=== PATIENT | male | born 1995 | race Caucasian/White ===

== ENCOUNTER 2018-12-25 23:08 | Emergency (ER) | payer BC, OTHER ==
--- OUTSIDE RECORDS SUMMARY | 2018-12-25 23:14 | XMS REPORT | Continuity of Care Document ---
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 Protect from light. Do not dilute or mix w/other agents propofol 10 See Active 09/21/ MH mg/mL Instructions, 2016 [place] intravenous see emulsion instructions, # 1 bag, 0 Refill(s) POLYETHYLENE PO, Q12H, 0 Active 09/21/ MH GLYCOL 3350 Refill(s) 2016 [place] phenol topical 1 spray, TOP, Active MH 1.4% spray Q2H, PRN Sore 2016 [place] Throat, 0 Refill(s) Amylases 79767 3 cap, NG, TID, Active MH UNT / 0 Refill(s) 2016 [place] Endopeptidases 54657 UNT / Lipase 17168 UNT Enteric Coated Capsule nafcillin 2 g 2 gm, IM, Q6H, X Active 09/21/ MH injection 30 day, # 1 box, 2016 [place] 0 Refill(s) pantoprazole 40 40 mg, IV, Q12H, Active 30/ MH mg intravenous 0 Refill(s) 2016 [place] injection midazolam 1 2 mg=2 mL, IVP, Active 09/21/ MH mg/mL-NaCl 0.9% Q2H, PRN 2016 [place] intravenous Agitation, 0 solution Refill(s) Magnesium 2 gm=50 mL, Active Sulfate IVPB, PRN, PRN 2016 [place] Abnormal Lab Result, FOR ICU USE ONLY, 0 Refill(s) Furosemide 20 mg=2 mL, IVP, Active Daily, 0 2015 [place] Refill(s) hydromorphone 0.5 mg=0.5 mL, Active MH 100 mg/100 IVP, Q3H, PRN 2015 [place] mL-NaCl 0.9% Pain Score 7-10, intravenous 0 Refill(s) solution heparin 5,000 unit=1 mL, Active SUB-Q, Q12H, 0 2015 [place] Refill(s) fentaNYL 5 See Active mcg/mL-NaCl 0.9% Instructions, 2016 [place] injectable titrate for solution pain/sedation, # 1 bag, 0 Refill(s) colistimethate 150 mg, NEB, Active [id number], 0 2015 [place] Refill(s) Albuterol 0.833 3 mL, Active MH MG/ML / INHALATION, 2015 [place] Ipratropium RQ6H, 0 [place] 0.167 Refill(s) MG/ML Inhalant Solution [DuoNeb] Acetazolamide 250 mg, IVP, Active Daily, 0 2015 [place] Refill(s) Acetaminophen 650 mg=20.3 mL, Active NG, Q4H, PRN 2016 [place] Pain 1-3/Temp > 100.4 F, 0 Refill(s) MICAFUNGIN 100 mg, IV, Active SODIUM 20 MG/ML Q24H, X 30 day, 2016 [place] Injectable # 1 box, 0 Solution Refill(s) [Mycamine] QUEtiapine 25 mg 50 mg=2 tab, PO, Active oral tablet Q12H, 0 2015 [place] Refill(s) meropenem 500 mg 500 mg, IV, Q6H, Active intravenous X 10 day, # 1 2016 [place] injection box, 0 Refill(s) colistimethate + 90 mg, Route: No Longer sodium chloride IVPB, ABXQ8H, Active 2015 [place] 0.9% INJ 100 mL Dosing Weight 54.318, kg, Start date: 09/21/16 1:00:00 CARDIOTHORACIC SURGEON, Duration: 30 day, Stop date: 10/20/16 17:00:00 CSTNotes: (Same As: Coly-Mycin) colistimethate + 90 mg, Route: No Longer sodium chloride IVPB, ABXQ8H, Active 2015 [place] 0.9% INJ 100 mL Dosing Weight 54.318, kg, Start date: 09/20/16 21:00:00 CARDIOTHORACIC SURGEON, Duration: 30 day, Stop date: 10/20/16 13:00:00 CSTNotes: (Same As: Coly-Mycin) colistimethate 150 mg, Route: No Longer NEB, Drug form: Active 2015 [place] SOLN, [id number], Dosing Weight 54.318, kg, Start date: 09/20/16 18:30:00 CARDIOTHORACIC SURGEON, Duration: 30 day, Stop date: 10/20/16 6:30:00 CSTNotes: SEE RT DOCUMENTATION. meropenem 500 mg, Route: No Longer IV, ABXQ6H, Active 2015 [place] Dosing Weight 54.318, kg, Start date: 09/20/16 16:00:00 CARDIOTHORACIC SURGEON, Duration: 30 day, Stop date: 10/20/16 10:00:00 CSTNotes: Same as Merrem MEDICATION WASTE Product Size: 500 mg Product Wasted: ___ mg dexamethasone Route: IV, Drug Inactive (ANES) form: INJ, ONCE, 2015 [place] Stop date: 09/20/16 15:17:00 CARDIOTHORACIC SURGEON ondansetron Route: IV, Drug Inactive (ANES) form: INJ, ONCE, 2015 [place] Stop date: 09/20/16 15:13:00 CARDIOTHORACIC SURGEON rocuronium Route: IV, Drug Inactive (ANES) form: INJ, ONCE, 2015 [place] Stop date: 09/20/16 15:03:00 CARDIOTHORACIC SURGEON sodium chloride Route: IV, Total Inactive 0.9% 1000 ml INJ Volume: 1,000, 2015 [place] (ANES) Start date: 09/20/16 14:24:00 CARDIOTHORACIC SURGEON, Stop date: 09/20/16 15:24:00 CARDIOTHORACIC SURGEON Pulmozyme 2.5 mg, 2.5 mL, No Longer Route: NEB, Drug Active 2015 [place] form: SOLN, RQ12H, Dosing Weight 54.318, kg, Start date: 09/20/16 13:13:00 CARDIOTHORACIC SURGEON, Duration: 30 day, Stop date: 10/20/16 4:00:00 CSTNotes: (Same as: Pulmozyme) D5NS 1,000 mL 1,000 mL, Rate: No Longer 50 ml/hr, Infuse Active 2015 [place] over: 20 hr, Route: IV, Dosing Weight 54.318 kg, Total Volume: 1,000, Start date: 09/20/16 11:57:00 CARDIOTHORACIC SURGEON, Duration: 30 day, Stop date: 10/20/16 11:56:00 CARDIOTHORACIC SURGEON Acetazolamide 250 mg, Route: No Longer IVP, Drug form: Active 2015 [place] PDR/INJ, Daily, Dosing Weight 54.318, kg, Start date: 09/19/16 9:00:00 CARDIOTHORACIC SURGEON, Duration: 30 day, Stop date: 10/18/16 9:00:00 CSTNotes: (Same as: Diamox) Mycamine 100 mg, Route: No Longer IV, [id number], Active 2015 [place] Dosing Weight 54.318, kg, Start date: 09/15/16 22:00:00 CARDIOTHORACIC SURGEON, Duration: 30 day, Stop date: 10/14/16 22:00:00 CSTNotes: Same as Mycamine Protect from light MEDICATION WASTE Product Size: 100 mg Product Wasted: ___ mg colistimethate + 135 mg, Route: No Longer sodium chloride IVPB, [id number], Active 2015 [place] 0.9% INJ 100 mL Dosing Weight 54.318, kg, Start date: 09/15/16 12:00:00 CARDIOTHORACIC SURGEON, Stop date: 10/14/16 12:00:00 CSTNotes: (Same As: Coly-Mycin) ceftolozane-tazo 1.5 gm, IVPB, No Longer bactam + sodium 100 ml/hr, Active 2015 [place] chloride 0.9% ABXQ8H, Start INJ 100 mL date: 09/14/16 16:00:00 CARDIOTHORACIC SURGEON, Duration: 30, 100 mlNotes: (Same as: Zerbaxa) Non-formulary albumin human 25 gm, 100 mL, Inactive 25% intravenous Route: IVPB, 2015 [place] solution Drug form: INJ, ONCE, Dosing Weight 54.318, kg, Start date: 09/14/16 14:17:00 CARDIOTHORACIC SURGEON, Stop date: 09/14/16 14:17:00 CSTNotes: Lot #: Mfg: ____ (Same as: Plasbumin-25) "blood product derivative" WASTE: F/P - Red; E -Red MEDICATION WASTE Product Size: 25 gm Product Wasted: ___ gm Zerbaxa 1.5 gm, Route: Inactive IVPB, ABXQ8H, 2015 [place] Dosing Weight 54.318, kg, CrCl > 50 ml/min, Start date: 09/14/16 12:00:00 CARDIOTHORACIC SURGEON, Duration: 30 day, Stop date: 10/14/16 4:00:00 CARDIOTHORACIC SURGEON colistimethate + 250 mg, Route: Inactive sodium chloride IV, ONCE, Dosing 2015 [place] 0.9% INJ 100 mL Weight 54.318, kg, Start date: 09/14/16 11:27:00 CARDIOTHORACIC SURGEON, Stop date: 09/14/16 11:27:00 CSTNotes: (Same As: Coly-Mycin) Furosemide 20 mg, 2 mL, No Longer Route: IVP, Drug Active 2015 [place] form: INJ, Daily, Dosing Weight 54.318, kg, Start date: 09/14/16 9:00:00 CARDIOTHORACIC SURGEON, Duration: 30 day, Stop date: 10/13/16 9:00:00 CSTNotes: (Same as: Lasix) Sodium Chloride 4 mL, Route: No Longer 3% inhalation NEB, Drug Form: Active 2015 [place] solution SOLN, Dosing Weight 54.318, kg, RQ6H, Start date: 09/13/16 20:00:00 CARDIOTHORACIC SURGEON, Duration: 30 day, Stop date: 10/13/16 14:00:00 CSTNotes: SEE RT DOCUMENTATION (Same as: Hypertonic Saline 3%, Inhalation) Albuterol 0.833 3 mL, Route: No Longer MG/ML / INHALATION, Drug Active 2015 [place] Ipratropium Form: SOLN, Wayne 0.167 Dosing Weight MG/ML Inhalant 54.318, kg, Solution RQ6H, Start [DuoNeb] date: 09/13/16 20:00:00 CARDIOTHORACIC SURGEON, Duration: 30 day, Stop date: 10/13/16 14:00:00 CSTNotes: (Same as: Duoneb) Nafcillin 2 gm, Route: No Longer IVPB, Drug form: Active 2015 [place] PDR/INJ, ABXQ6H, Dosing Weight 54.318, kg, Start date: 09/13/16 20:00:00 CARDIOTHORACIC SURGEON, Duration: 30 day, Stop date: 10/13/16 14:00:00 CARDIOTHORACIC SURGEON fat emulsion, 250 mL, 31.25 No Longer intravenous ml/hr, Route: Active 2015 [place] IV, Drug Form: INJ, Daily, Start date: 09/12/16 22:00:00 CARDIOTHORACIC SURGEON, Stop date: 10/11/16 22:00:00 CSTNotes: (Same as: Intralipid, Liposyn) Hydrocortisone 25 mg, 0.5 mL, No Longer Route: IV, Drug Active 2015 [place] form: PDR/INJ, Q12H, Dosing Weight 54.318, kg, Start date: 09/12/16 21:00:00 CARDIOTHORACIC SURGEON, Stop date: 10/12/16 9:00:00 CSTNotes: (Same as: Solu-CORTEF) Propofol 10 1,000 mg, 100 No Longer MG/ML Injectable mL, Rate: Active 2015 [place] Suspension Titrate, Start Dose: 5 microgram/kg/min , Titration: 5 microgram/kg/min every 15 min, Goal(s): RASS -1 to -2, Max Dose: 50 microgram/kg/min , Route: IV, Dosing Weight 54.318 kg, Total Volume: 100, Start date: 09/12/16 11:58:00 CS...Notes: If Diprivan - change bottle & tubing every 12 hr Per state nursing law propofol can only be given by a nurse if patient is intubated or being intubated (unless the nurse is a FED[employer] COMMISSIONER). Same as: Diprivan pantoprazole 40 mg, Route: No Longer IV, Drug form: Active 2015 [place] INJ, Q12H, Dosing Weight 54.318, kg, Start date: 09/12/16 10:34:00 CARDIOTHORACIC SURGEON, Duration: 30 day, Stop date: 10/12/16 9:00:00 CSTNotes: (Same as: Protonix) Midazolam 2 mg, 2 mL, No Longer Route: IVP, Drug Active 2015 [place] form: INJ, Q2H, Dosing Weight 54.318, kg, PRN Agitation, Start date: 09/12/16 10:30:00 CARDIOTHORACIC SURGEON, Duration: 30 day, Stop date: 10/12/16 10:29:00 CSTNotes: (Same as: Versed) MEDICATION WASTE Product Size: 2 mg Product Wasted: ___ mg Miralax 17 gm, 1 pkt, No Longer Route: PO, Drug Active 2015 [place] form: PWDR, Q12H, Dosing Weight 54.318, kg, Start date: 09/12/16 10:13:00 CARDIOTHORACIC SURGEON, Duration: 30 day, Stop date: 10/12/16 9:00:00 CSTNotes: Dissolve in 8 oz of water or juice. (Same as: Miralax) Miralax 17 gm, Route: Inactive PO, Daily, 2015 [place] Dosing Weight 54.318, kg, Start date: 09/12/16 10:11:00 CARDIOTHORACIC SURGEON, Duration: 30 day, Stop date: 10/12/16 9:00:00 CARDIOTHORACIC SURGEON fat emulsion, 250 mL, 31.25 No Longer intravenous ml/hr, Route: Active 2015 [place] IV, Drug Form: INJ, Daily, Start date: 09/11/16 22:00:00 CARDIOTHORACIC SURGEON, Stop date: 09/12/16 6:00:00 CSTNotes: (Same as: Intralipid, Liposyn) Infuse through a 1.2 micron filter TPN, adult 1,058 mL, Rate: No Longer solution 1,058 42 ml/hr, Infuse Active 2015 [place] mL over: 25.2 hr, Route: IV, Dosing Weight 54.318 kg, Total Volume: 1,058, Start date: 09/11/16 22:00:00 CARDIOTHORACIC SURGEON, Stop date: 09/13/16 21:59:00 CARDIOTHORACIC SURGEON Seroquel 50 mg, 2 tab, No Longer Route: PO, Drug Active 2015 [place] form: TAB, Q12H, Dosing Weight 54.318, kg, Start date: 09/11/16 21:00:00 CARDIOTHORACIC SURGEON, Stop date: 10/11/16 9:00:00 CSTNotes: (Same as: SEROquel) sterile water 5 mL, Route: No Longer MISC, Drug Form: Active 2015 [place] INJ, Daily, Start date: 09/11/16 17:44:00 CARDIOTHORACIC SURGEON, Duration: 30 day, Stop date: 10/11/16 9:00:00 CSTNotes: For reconstitution of drugs only Acetazolamide 250 mg, Route: No Longer IVP, Drug form: Active 2015 [place] PDR/INJ, Daily, Dosing Weight 54.318, kg, Start date: 09/11/16 17:41:00 CARDIOTHORACIC SURGEON, Stop date: 09/15/16 9:00:00 CSTNotes: (Same as: Diamox) Daptomycin 350 mg, Route: No Longer IVPB, Q24H, Active 2015 [place] Dosing Weight 54.318, kg, Start date: 09/11/16 17:00:00 CARDIOTHORACIC SURGEON, Duration: 30 day, Stop date: 10/10/16 17:00:00 CSTNotes: (Same As: Cubicgabino) Restricted use to Infectious Disease Physicians. MEDICATION WASTE Product Size: 500 mg Product Wasted: ___ mg VANCO trough 30 VANCO trough 30 Inactive minutes before minutes before 2015 [place] AM dose AM dose, once, Drug form: MISC, Route: N/A, ONCE, 09/11/16 5:30:00 CARDIOTHORACIC SURGEON, Stop date: 09/11/16 5:30:00 CARDIOTHORACIC SURGEON TPN, adult 1,490 mL, Rate: No Longer solution 1,490 60 ml/hr, Infuse Active 2015 [place] mL over: 24.8 hr, Route: IV, Dosing Weight 54.318 kg, Total Volume: 1,490, Start date: 09/10/16 22:00:00 CARDIOTHORACIC SURGEON, Duration: 24 hr, Stop date: 09/11/16 21:59:00 CARDIOTHORACIC SURGEON Acetaminophen 650 mg, 20.3 mL, No Longer Route: NG, Drug Active 2015 [place] form: LIQ, Q4H, Dosing Weight 54.318, kg, PRN Pain 1-3/Temp > 100.4 F, Start date: 09/10/16 21:39:00 CARDIOTHORACIC SURGEON, Duration: 30 day, Stop date: 10/10/16 21:38:00 CSTNotes: Max acetaminophen=40 00mg/day (4 gm/day). (Same as: Tylenol) Furosemide 20 mg, 2 mL, No Longer Route: IVP, Drug Active 2015 [place] form: INJ, Q12H, Dosing Weight 54.318, kg, Start date: 09/10/16 9:47:00 CARDIOTHORACIC SURGEON, Duration: 30 day, Stop date: 10/10/16 9:00:00 CSTNotes: (Same as: Lasix) TPN, adult 1,490 mL, Rate: No Longer solution 1,490 60 ml/hr, Infuse Active 2015 [place] mL over: 24.8 hr, Route: IV, Dosing Weight 54.318 kg, Total Volume: 1,490, Start date: 09/09/16 22:00:00 CARDIOTHORACIC SURGEON, Duration: 24 hr, Stop date: 09/10/16 21:59:00 CARDIOTHORACIC SURGEON fat emulsion, IV, 31.25 ml/hr, No Longer intravenous 250 Start date: Active 2015 [place] mL 09/09/16 22:00:00 CARDIOTHORACIC SURGEON, Duration: 8, 250 ml, 54.318Notes: (Same as: Intralipid, Liposyn) Infuse through a 1.2 micron filter heparin 5,000 unit, 1 No Longer mL, Route: Active 2015 [place] SUB-Q, Drug form: INJ, Q12H, Dosing Weight 54.318, kg, Start date: 09/09/16 17:49:00 CARDIOTHORACIC SURGEON, Duration: 30 day, Stop date: 10/09/16 9:00:00 CSTNotes: porcine heparin fat emulsion, 250 mL, 31.25 Inactive intravenous ml/hr, Route: 2015 [place] IV, Drug Form: INJ, ONCE, Start date: 09/08/16 22:00:00 CARDIOTHORACIC SURGEON, Stop date: 09/08/16 22:00:00 CSTNotes: (Same as: Intralipid, Liposyn) TPN, adult 1,490 mL, Rate: No Longer solution 1,490 60 ml/hr, Infuse Active 2015 [place] mL over: 24.8 hr, Route: IV, Dosing Weight 54.318 kg, Total Volume: 1,490, Start date: 09/08/16 22:00:00 CARDIOTHORACIC SURGEON, Duration: 1 day, Stop date: 09/09/16 21:59:00 CARDIOTHORACIC SURGEON Glucose 200 500 mL, Rate: Inactive MG/ML Injectable 100 ml/hr, 2015 [place] Solution Infuse over: 5 hr, Route: IV, Dosing Weight 54.318 kg, Total Volume: 500, Start date: 09/08/16 10:59:00 CARDIOTHORACIC SURGEON, Stop date: 09/08/16 22:00:00 CARDIOTHORACIC SURGEON Insulin, Aspart, 6 unit, 0.06 mL, No Longer Human Route: SUB-Q, Active 2015 [place] Drug form: SOLN, Sliding Scale, Dosing Weight 54.318, kg, PRN Blood Glucose Results, Start date: 09/07/16 18:47:00 CARDIOTHORACIC SURGEON, Duration: 30 day, Stop date: 10/07/16 18:46:00 CSTNotes: Roll in palms of hands gently; Do not shake vigorously. (Same as: NovoLOG) "single patient use only" WASTE: F/P - Black; E - Municipal Trash Bin Stable for 28 days at room temperature. Expires in days from Da te Glucagon 1 mg, Route: IM, No Longer Drug form: Active 2015 [place] PDR/INJ, PRN, Dosing Weight 54.318, kg, PRN Blood Glucose Results, Start date: 09/07/16 18:47:00 CARDIOTHORACIC SURGEON, Duration: 30 day, Stop date: 10/07/16 18:46:00 CARDIOTHORACIC SURGEON Dextrose 50% 12.5 gm, 25 mL, No Longer Syringe Route: IVP, Drug Active 2015 [place] Form: INJ, Dosing Weight 54.318, kg, PRN, PRN Blood Glucose Results, Start date: 09/07/16 18:47:00 CARDIOTHORACIC SURGEON, Duration: 30 day, Stop date: 10/07/16 18:46:00 CARDIOTHORACIC SURGEON acetylcysteine 600 mg, 6 mL, Inactive oral solution Route: NG, Drug 2015 [place] (mg) form: SOLN, BID, Dosing Weight 54.318, kg, Start date: 09/07/16 18:00:00 CARDIOTHORACIC SURGEON, Duration: 1 doses or times, Stop date: 09/07/16 18:00:00 CSTNotes: WASTE: F/P - Black; E - Municipal Trash Bin Acetaminophen 1,000 mg, 100 No Longer mL, Route: IV, Active 2015 [place] Drug form: INJ, Q6H, Dosing Weight 54.318, kg, PRN For Temp > 101 F, Start date: 09/07/16 16:54:00 CARDIOTHORACIC SURGEON, Duration: 24 hr, Stop date: 09/08/16 16:53:00 CSTNotes: Infuse over 15 minutes Do not exceed 4gm/day of acetaminophen MEDICATION WASTE Product Size: 1000 mg Product Wasted: ___ mg Hydrocortisone 50 mg, 1 mL, No Longer Route: IV, Drug Active 2015 [place] form: PDR/INJ, Q6H, Dosing Weight 54.318, kg, Start date: 09/07/16 12:00:00 CARDIOTHORACIC SURGEON, Duration: 30 day, Stop date: 10/07/16 6:00:00 CSTNotes: (Same as: Jeff) albumin human 25 gm, 100 mL, Inactive 25% intravenous Route: IVPB, 2015 [place] solution Drug form: INJ, ONCE, Dosing Weight 54.318, kg, Start date: 09/07/16 10:30:00 CARDIOTHORACIC SURGEON, Stop date: 09/07/16 10:30:00 CSTNotes: Lot #: Mfg: ____ (Same as: Plasbumin-25) "blood product derivative" WASTE: F/P - Red; E -Red MEDICATION WASTE Product Size: 25 gm Product Wasted: ___ gm Magnesium Oxide 800 mg, 2 tab, No Longer Route: PO, Drug Active 2015 [place] form: TAB, PRN, Dosing Weight 54.318, kg, PRN Abnormal Lab Result, FOR ICU USE ONLY, Start date: 09/07/16 10:29:00 CARDIOTHORACIC SURGEON, Duration: 30 day, Stop date: 10/07/16 10:28:00 CSTNotes: (Same as: Mag-Ox 400) Magnesium oxide [id number] elemental magnesium Dose=____mg magnesium oxide (___mg elemental magnesium) Magnesium 2 gm, 50 mL, No Longer Sulfate Route: IVPB, Active 2015 [place] Drug form: INJ, PRN, Dosing Weight 54.318, kg, PRN Abnormal Lab Result, Start date: 09/07/16 10:29:00 CARDIOTHORACIC SURGEON, Duration: 30 day, Stop date: 10/07/16 10:28:00 CARDIOTHORACIC SURGEON, FOR ICU USE ONLYNotes: WASTE: F/P - Sink; E - Municipal Trash Bin Calcium 500 mg, 1 tab, No Longer Carbonate 500 MG Route: PO, Drug Active 2015 [place] Chewable Tablet form: CHEWTAB, PRN, Dosing Weight 54.318, kg, PRN Abnormal Lab Result, FOR ICU USE ONLY, Start date: 09/07/16 10:29:00 CARDIOTHORACIC SURGEON, Duration: 30 day, Stop date: 10/07/16 10:28:00 CSTNotes: (Same As: Tums) Calcium Carbonate 500 im=553 mg elemental calcium Dose= mg calcium carbonate ( mg elemental calcium) Calcium 1 gm, 10 mL, No Longer Gluconate Route: IVPB, Active 2015 [place] PRN, Dosing Weight 54.318, kg, PRN Abnormal Lab Result, Start date: 09/07/16 10:29:00 CARDIOTHORACIC SURGEON, Duration: 30 day, Stop date: 10/07/16 10:28:00 CARDIOTHORACIC SURGEON, FOR ICU USE ONLYNotes: WASTE: F/P - Sink; E - Municipal Trash Bin potassium 2 pkt, Route: No Longer phosphate-sodium PO, Drug Form: Active 2016 [place] phosphate 250 PDR/REC, Dosing mg-280 mg-160 mg Weight 54.318, oral powder for kg, PRN, PRN reconstitution Abnormal Lab Result, FOR ICU USE ONLY, Start date: 09/07/16 10:29:00 CARDIOTHORACIC SURGEON, Duration: 30 day, Stop date: 10/07/16 10:28:00 CSTNotes: (Same as: Phos-NaK) Each 1.5 gm pkt has 250mg phosphorous. Mix w/2.5oz water and stir. sodium phosphate 45 mmol, 15 mL, No Longer + D5W 250 mL Route: IVPB, Active 2015 [place] PRN, Dosing Weight 54.318, kg, PRN Abnormal Lab Result, Start date: 09/07/16 10:29:00 CARDIOTHORACIC SURGEON, Duration: 30 day, Stop date: 10/07/16 10:28:00 CARDIOTHORACIC SURGEON, FOR ICU USE ONLY potassium 20 mEq, 15 mL, No Longer chloride Route: NJ, Drug Active 2015 [place] form: LIQ, PRN, Dosing Weight 54.318, kg, PRN Abnormal Lab Result, Start date: 09/07/16 10:29:00 CARDIOTHORACIC SURGEON, Duration: 30 day, Stop date: 10/07/16 10:28:00 CARDIOTHORACIC SURGEON, FOR ICU USE ONLYNotes: (Same as: Potassium Chloride) potassium 15 mmol, 5 mL, No Longer phosphate + Route: IVPB, Active 2015 [place] sodium chloride PRN, Dosing 0.9% INJ 250 mL Weight 54.318, kg, PRN Abnormal Lab Result, Start date: 09/07/16 10:29:00 CARDIOTHORACIC SURGEON, Duration: 30 day, Stop date: 10/07/16 10:28:00 CARDIOTHORACIC SURGEON, FOR ICU USE ONLYNotes: (Same as: K Phosphate.) 1 mMol phoshate has 1.47 mEq potassium Infuse over 4 hours Calcium 500 mg, 1 tab, Inactive Carbonate 500 MG Route: PO, Drug 2016 [place] Chewable Tablet form: CHEWTAB, PRN, Dosing Weight 54.318, kg, PRN Abnormal Lab Result, FOR ICU USE ONLY, Start date: 09/07/16 7:55:00 CARDIOTHORACIC SURGEON, Duration: 30 day, Stop date: 10/07/16 7:54:00 CSTNotes: (Same As: Tums) Calcium Carbonate 500 ps=391 mg elemental calcium Dose= mg calcium carbonate ( mg elemental calcium) Magnesium 2 gm, 50 mL, Inactive Sulfate Route: IVPB2015 [place] Drug form: INJ, PRN, Dosing Weight 54.318, kg, PRN Abnormal Lab Result, Start date: 09/07/16 7:55:00 CARDIOTHORACIC SURGEON, Duration: 30 day, Stop date: 10/07/16 7:54:00 CARDIOTHORACIC SURGEON, FOR ICU USE ONLYNotes: WASTE: F/P - Sink; E - Municipal Trash Bin potassium 2 pkt, Route: Inactive phosphate-sodium PO, Drug Form: 2015 [place] phosphate 250 PDR/REC, Dosing mg-280 mg-160 mg Weight 54.318, oral powder for kg, PRN, PRN reconstitution Abnormal Lab Result, FOR ICU USE ONLY, Start date: 09/07/16 7:55:00 CARDIOTHORACIC SURGEON, Duration: 30 day, Stop date: 10/07/16 7:54:00 CSTNotes: (Same as: Phos-NaK) Each 1.5 gm pkt has 250mg phosphorous. Mix w/2.5oz water and stir. Calcium 1 gm, 10 mL, Inactive Gluconate Route: IVPB2015 [place] PRN, Dosing Weight 54.318, kg, PRN Abnormal Lab Result, Start date: 09/07/16 7:55:00 CARDIOTHORACIC SURGEON, Duration: 30 day, Stop date: 10/07/16 7:54:00 CARDIOTHORACIC SURGEON, FOR ICU USE ONLYNotes: WASTE: F/P - Sink; E - Municipal Trash Bin Magnesium Oxide 800 mg, 2 tab, Inactive Route: PO, Drug 2015 [place] form: TAB, PRN, Dosing Weight 54.318, kg, PRN Abnormal Lab Result, FOR ICU USE ONLY, Start date: 09/07/16 7:55:00 CARDIOTHORACIC SURGEON, Duration: 30 day, Stop date: 10/07/16 7:54:00 CSTNotes: (Same as: Mag-Ox 400) Magnesium oxide [id number] elemental magnesium Dose=____mg magnesium oxide (___mg elemental magnesium) potassium 20 mEq, 1 tab, Inactive chloride Route: PO, Drug 2015 [place] form: ERTAB, PRN, Dosing Weight 54.318, kg, PRN Abnormal Lab Result, Start date: 09/07/16 7:55:00 CARDIOTHORACIC SURGEON, Duration: 30 day, Stop date: 10/07/16 7:54:00 CARDIOTHORACIC SURGEON, FOR ICU USE ONLYNotes: (Same as: K-Dur 20) "Do Not Crush" With food and full glass of water sodium phosphate 15 mmol, 5 mL, Inactive + D5W 250 mL Route: IVPB, 2015 [place] PRN, Dosing Weight 54.318, kg, PRN Abnormal Lab Result, Start date: 09/07/16 7:55:00 CARDIOTHORACIC SURGEON, Duration: 30 day, Stop date: 10/07/16 7:54:00 CARDIOTHORACIC SURGEON, FOR ICU USE ONLY potassium 45 mmol, 15 mL, Inactive phosphate + Route: IVPB2015 [place] sodium chloride PRN, Dosing 0.9% INJ 250 mL Weight 54.318, kg, PRN Abnormal Lab Result, Start date: 09/07/16 7:55:00 CARDIOTHORACIC SURGEON, Duration: 30 day, Stop date: 10/07/16 7:54:00 CARDIOTHORACIC SURGEON, FOR ICU USE ONLYNotes: (Same as: K Phosphate.) 1 mMol phoshate has 1.47 mEq potassium Infuse over 4 hours Phenylephrine 50 mg, 5 mL, No Longer Rate: Titrate, Active 2015 [place] Start Dose: 35 microgram/min, Titration: 25 microgram/min every 2-5 minutes, Goal(s): MAP >=65, Max Dose: 350 microgram/min, Route: IV, Dosing Weight 54.318 kg, Total Volume: 255, Start date: 09/07/16 6:50:00 CARDIOTHORACIC SURGEON, Duration...Notes : (Same as: Archie-Synephrine) Acetaminophen 1,000 mg, 100 Inactive mL, Route: IV, 2015 [place] Drug form: INJ, Q6Hnow, Dosing Weight 54.318, kg, Start date: 09/07/16 4:15:00 CARDIOTHORACIC SURGEON, Stop date: 09/08/16 16:15:00 CSTNotes: Infuse over 15 minutes Do not exceed 4gm/day of acetaminophen MEDICATION WASTE Product Size: 1000 mg Product Wasted: ___ mg Sodium Chloride 1,000 mL, 1,000 Inactive 0.154 MEQ/ML ml/hr, Infuse 2015 [place] Injectable Over: 1 hr, Solution Route: IV, 1,000, Drug form: INJ, ONCE, Priority: STAT, Dosing Weight 54.318 kg, Start date: 09/07/16 3:55:00 CARDIOTHORACIC SURGEON, Duration: 1 doses or times, Stop date: 09/07/16 3:55:00 CARDIOTHORACIC SURGEON Vasopressin 40 unit, 2 mL, No Longer (RESIDENTIAL) Rate: As Active 2015 [place] Directed, Start Dose: 0.04 unit/min, Titration: DO NOT TITRATE, Goal(s): MAP >=65 mmHg, Max Dose: 0.04 unit/min, Route: IV, Dosing Weight 54.318 kg, Total Volume: 100 For Sepsis, Start date: 09/07/16 3:54:00 CARDIOTHORACIC SURGEON, Duration: 30...Notes: (Same As: Pitressin, Vasostrict) sodium chloride 1,000 mL, Rate: Inactive 0.9% 1000 ml INJ 75 ml/hr, Infuse 2015 [place] 1,000 mL over: 13.3 hr, Route: IV, Dosing Weight 54.318 kg, Total Volume: 1,000, Start date: 09/07/16 3:33:00 CARDIOTHORACIC SURGEON, Duration: 30 day, Stop date: 10/07/16 3:32:00 CARDIOTHORACIC SURGEON Sodium Chloride 1,000 mL, 1,000 Inactive 0.154 MEQ/ML ml/hr, Infuse 2015 [place] Injectable Over: 1 hr, Solution Route: IV, 1,000, Drug form: INJ, ONCE, Priority: STAT, Dosing Weight 54.318 kg, Start date: 09/07/16 3:32:00 CARDIOTHORACIC SURGEON, Duration: 1 doses or times, Stop date: 09/07/16 3:32:00 CARDIOTHORACIC SURGEON meropenem 500 mg, Route: No Longer IVPB, ABXQ6H, Active 2015 [place] Dosing Weight 54.318, kg, CrCL >=50ml/min, Extended infusion, infuse over 3 hours, Start date: 09/07/16 0:00:00 CARDIOTHORACIC SURGEON, Duration: 30 day, Stop date: 10/06/16 18:00:00 CSTNotes: Same as [place] MEDICATION WASTE Product Size: 500 mg Product Wasted: ___ mg midazolam 50mg/ 50 mg, 50 mL, No Longer NS 50ml drip Rate: Titrate, Active 2015 [place] (premixed) 50 mg Start Dose: 1 mg/hr, Titration: Rebolus 1 mg IV and/or Titrate infusion by 1 mg/hour every 30 minutes, Goal(s): -2, Max Dose: 10 mg/hr, Route: IV, Dosing Weight 54.318 kg, Total Volume: 50, Start date: 09/06/16 23:21:00 CS...Notes: (Same as: Versed) Fentanyl 1,250 microgram, No Longer 250 mL, Rate: Active 2015 [place] Titrate, Start Dose: 50 microgram/hr, Titration: 25 microgram/hour every 15 minutes, Goal(s): -2, Max Dose: 300 microgram/hr, Route: IV, Dosing Weight 54.318 kg, Total Volume: 250, Start date: 09/06/16 23:21:00 CARDIOTHORACIC SURGEON, Dura...Notes: Concentration: 5 microgram / ml Dextrose 20% in 500 mL, Rate: No Longer water 500 mL 100 ml/hr, Active 2015 [place] Infuse over: 5 hr, Route: IV, Dosing Weight 54.318 kg, Total Volume: 500, Start date: 09/06/16 23:11:00 CARDIOTHORACIC SURGEON, Stop date: 09/07/16 23:10:00 CARDIOTHORACIC SURGEON Norepinephrine 16 mg, 16 mL, No Longer Rate: Titrate, Active 2015 [place] Start Dose: 5 microgram/min, Titration: 2 microgram/min every 2-5 minutes, Goal(s): MAP >=65 mmHg, Max Dose: 70 microgram/min, Route: IV, Dosing Weight 54.318 kg, Total Volume: 250, Start date: 09/06/16 23:11:00 CARDIOTHORACIC SURGEON, Stop...Notes: (Same as:Levophed). midazolam (ANES) Route: IV, Drug Inactive form: ELIZABETHN, [place] ONCE, Stop date: 09/06/16 23:09:00 CARDIOTHORACIC SURGEON Diflucan 200 mg, 100 mL, No Longer Route: IVPB, Active 2015 [place] Drug form: INJ, [id number], Dosing Weight 54.318, kg, Start date: 09/06/16 23:00:00 CARDIOTHORACIC SURGEON, Stop date: 10/05/16 23:00:00 CSTNotes: (Same as: Diflucan) Do not refrigerate Vancomycin 750 mg, Route: No Longer IVPB, ABXQ6H, Active 2015 [place] Dosing Weight 54.318, kg, Start date: 09/06/16 23:00:00 CARDIOTHORACIC SURGEON, Stop date: 10/06/16 12:00:00 CSTNotes: TIME CRITICAL MEDICATION (Same As: Vancocin) Infusion rate 2001 mg: infuse over 2.5 hours MEDICATION WASTE Product Size: 1000 mg Product Wasted: ___ mg Flagyl 500 mg, 100 mL, No Longer Route: IVPB, Active 2015 [place] Drug form: INJ, ABXQ8H, Dosing Weight 54.318, kg, Start date: 09/06/16 23:00:00 CARDIOTHORACIC SURGEON, Duration: 30 day, Stop date: 10/06/16 15:00:00 CSTNotes: (Same as: Flagyl) Avoid alcohol. ondansetron Route: IV, Drug Inactive (ANES) form: INJ, ONCE, 2015 Stop date: 09/06/16 22:56:00 CARDIOTHORACIC SURGEON fat emulsion, 250 mL, 31.25 No Longer intravenous ml/hr, Route: Active 2015 [place] IV, Drug Form: INJ, ONCE, Start date: 09/06/16 22:00:00 CARDIOTHORACIC SURGEON, Stop date: 09/06/16 22:00:00 CSTNotes: (Same as: Intralipid, Liposyn) norepinephrine Route: IV, Drug Inactive (ANES) (ANES) form: INJ, Start 2015 [place] date: 09/06/16 21:27:00 CARDIOTHORACIC SURGEON, Stop date: 09/06/16 22:27:00 CARDIOTHORACIC SURGEON heparin 5,000 unit, Inactive Route: SUB-Q, 2015 [place] Q12H, Dosing Weight 54.318, kg, Start date: 09/06/16 21:00:00 CARDIOTHORACIC SURGEON, Duration: 30 day, Stop date: 10/06/16 9:00:00 CARDIOTHORACIC SURGEON piperacillin-bianca IV, ONCE Inactive obactam (ANES) 2015 [place] hydromorphone Route: IV, Drug Inactive (ANES) form: INJ, ONCE, 2015 [place] Stop date: 09/06/16 20:51:00 CARDIOTHORACIC SURGEON rocuronium Route: IV, Drug Inactive (ANES) form: INJ, ONCE, 2015 [place] Stop date: 09/06/16 20:31:00 CARDIOTHORACIC SURGEON LR 1000 mL INJ Route: IV, Total Inactive (ANES) Volume: 1,000, 2015 [place] Start date: 09/06/16 19:42:00 CARDIOTHORACIC SURGEON, Stop date: 09/06/16 20:42:00 CARDIOTHORACIC SURGEON Albuterol 0.833 3 mL, Route: No Longer MG/ML / INHALATION, Drug Active 2015 [place] Ipratropium Form: SOLN, [place] 0.167 Dosing Weight MG/ML Inhalant 54.318, kg, Solution RQ4H, Start [DuoNeb] date: 09/06/16 19:00:00 CARDIOTHORACIC SURGEON, Duration: 30 day, Stop date: 10/06/16 15:00:00 CSTNotes: (Same as: Duoneb) Miralax 17 gm, 1 pkt, Inactive Route: NG, Drug 2015 [place] form: PWDR, BID, Dosing Weight 54.318, kg, Start date: 09/06/16 17:27:00 CARDIOTHORACIC SURGEON, Duration: 30 day, Stop date: 10/06/16 17:00:00 CSTNotes: Dissolve in 8 oz of water or juice. (Same as: Miralax) Amitiza 8 microgram, 1 No Longer cap, Route: PO, Active 2015 [place] Drug form: CAP, BID, Dosing Weight 54.318, kg, Start date: 09/06/16 17:26:00 CARDIOTHORACIC SURGEON, Duration: 30 day, Stop date: 10/06/16 17:00:00 CSTNotes: Same as: Amitiza (Do Not Crush) Non-Formulary Dilaudid 0.5 mg, 0.5 mL, No Longer Route: IVP, Drug Active 2015 [place] form: INJ, Q3H, Dosing Weight 54.318, kg, PRN Pain Score 7-10, Start date: 09/06/16 16:52:00 CARDIOTHORACIC SURGEON, Duration: 30 day, Stop date: 10/06/16 16:51:00 CSTNotes: Same as: Dilaudid fat emulsion, 250 mL, 31.25 Inactive intravenous ml/hr, Route: 2015 [place] IV, Drug Form: INJ, ONCE, Start date: 09/06/16 1:11:00 CARDIOTHORACIC SURGEON, Stop date: 09/06/16 1:11:00 CSTNotes: (Same as: Intralipid, Liposyn) fat emulsion, 250 mL, 31.25 No Longer intravenous ml/hr, Route: Active 2015 [place] IV, Drug Form: INJ, ONCE, Start date: 09/05/16 22:00:00 CARDIOTHORACIC SURGEON, Stop date: 09/05/16 22:00:00 CSTNotes: (Same as: Intralipid, Liposyn) TPN, adult 1,490 mL, Rate: No Longer solution 1490 mL 60 ml/hr, Infuse Active 2015 [place] over: 24.8 hr, Route: IV, Dosing Weight 54.318 kg, Total Volume: 1,490, Start date: 09/05/16 22:00:00 CARDIOTHORACIC SURGEON, Duration: 1 day, Stop date: 09/09/16 16:06:00 CARDIOTHORACIC SURGEON Amylases 37213 3 cap, Route: No Longer UNT / NG, Drug Form: Active 2015 [place] Endopeptidases DRC, Dosing 20974 UNT / Weight 54.318, Lipase 41198 UNT kg, TID, Start Enteric Coated date: 09/05/16 Capsule 17:43:00 CARDIOTHORACIC SURGEON, Stop date: 10/05/16 17:00:00 CSTNotes: Same as : Lipase 73097 Units, Protease 38,000 units, Amylase 14858 units Acetylcysteine 600 mg, 6 mL, Active 200 MG/ML Route: NG, Drug 2015 [place] Inhalant form: SOLN, BID, Solution Dosing Weight 54.318, kg, Start date: 09/05/16 17:41:00 CARDIOTHORACIC SURGEON, Stop date: 09/07/16 17:00:00 CSTNotes: WASTE: F/P - Black; E - Municipal Trash Bin Zosyn 3.375 gm, Route: No Longer IVPB, ABXQ6H, Active 2015 [place] Dosing Weight 54.318, kg, Start date: 09/05/16 17:00:00 CARDIOTHORACIC SURGEON, Duration: 30 day, Stop date: 10/05/16 11:00:00 CSTNotes: (Same as: Zosyn) Dosing based on Piperacillin component MEDICATION WASTE Product Size: 3375 mg Product Wasted: ___ mg Reglan 10 mg, 2 mL, No Longer Route: IVP, Drug Active 2015 [place] form: INJ, Q8H, Dosing Weight 54.318, kg, Start date: 09/05/16 1:00:00 CARDIOTHORACIC SURGEON, Stop date: 09/08/16 9:00:00 CSTNotes: (Same as: Reglan) Zosyn 3.375 gm, Stop Inactive date: 09/04/162015 [place] 20:00:00 CSTNotes: (Same as: Zosyn) Dosing based on Piperacillin component MEDICATION WASTE Product Size: 3375 mg Product Wasted: ___ mg D5W 1/2NS + KCL 1,000 mL, Rate: No Longer 20mEq/L 1000ml 100 ml/hr, Active 2015 [place] (Premix) 1,000 Infuse over: 10 mL hr, Route: IV, Dosing Weight 54.318 kg, Total Volume: 1,000, Start date: 09/04/16 18:10:00 CARDIOTHORACIC SURGEON, Duration: 30 day, Stop date: 10/04/16 18:09:00 CSTNotes: PREMIX IV - Do Not Alter WASTE: F/P - Sink; E - Municipal Trash Bin 1/2NS + KCL 1,000 mL, Rate: Inactive 20mEq/L 1000ml 100 ml/hr, 2015 [place] (Premix) 1,000 Infuse over: 10 mL hr, Route: IV, Dosing Weight 54.318 kg, Total Volume: 1,000, Start date: 09/04/16 10:32:00 CARDIOTHORACIC SURGEON, Duration: 30 day, Stop date: 10/04/16 10:31:00 CSTNotes: PREMIX IV - Do Not Alter WASTE: F/P - Sink; E - Municipal Trash Bin Saline Flush 10 ml, Route: No Longer 0.9% IVP, Drug Form: Active 2015 [place] INJ, Dosing Weight 54.318, kg, PRN, PRN Line Flush, Start date: 09/04/16 10:32:00 CARDIOTHORACIC SURGEON, Duration: 30 day, Stop date: 10/04/16 10:31:00 CSTNotes: (Same as: BD Posiflush) Saline Flush 10 ml, Route: No Longer 0.9% IVP, Drug Form: Active 2015 [place] INJ, Dosing Weight 54.318, kg, PRN, PRN Line Flush, Start date: 09/04/16 10:28:00 CARDIOTHORACIC SURGEON, Duration: 30 day, Stop date: 10/04/16 10:27:00 CSTNotes: (Same as: BD Posiflush) Dextrose 5% with 1,000 mL, Rate: Inactive 0.45% NaCl IV 100 ml/hr, 2015 [place] 1,000 mL Infuse over: 10 hr, Route: IV, Dosing Weight 54.318 kg, Total Volume: 1,000, Start date: 09/04/16 10:28:00 CARDIOTHORACIC SURGEON, Duration: 30 day, Stop date: 10/04/16 10:27:00 CARDIOTHORACIC SURGEON Famotidine 20 mg, 2 mL, No Longer Route: IVP, Drug Active 2015 [place] form: INJ, Q12H, Dosing Weight 54.318, kg, Start date: 09/03/16 21:00:00 CARDIOTHORACIC SURGEON, Duration: 30 day, Stop date: 10/03/16 9:00:00 CSTNotes: (Same as: Pepcid) Can be dilute in 5-10cc NS IVP: Slow IV push over at least 2 minutes. Reglan 10 mg, 2 mL, No Longer Route: IVP, Drug Active 2015 [place] form: INJ, Q8H, Dosing Weight 54.318, kg, Start date: 09/03/16 16:00:00 CARDIOTHORACIC SURGEON, Duration: 5 day, Stop date: 09/08/16 9:00:00 CSTNotes: (Same as: Reglan) magnesium 4 gm, 100 mL, Inactive sulfate 4 gm / Route: IV, Drug 2015 [place] 100 mL solution form: INJ, ONCE, Dosing Weight 54.318, kg, Start date: 09/03/16 15:29:00 CARDIOTHORACIC SURGEON, Stop date: 09/03/16 15:29:00 CSTNotes: WASTE: F/P - Sink; E - Municipal Trash Bin Ofirmev 1,000 mg, 100 No Longer mL, Route: IV, Active 2015 [place] Drug form: INJ, Q6H, Dosing Weight 54.318, kg, for > or=50 kg, Start date: 09/03/16 12:00:00 CARDIOTHORACIC SURGEON, Duration: 1 day, Stop date: 09/04/16 6:00:00 CSTNotes: Infuse over 15 minutes Do not exceed 4gm/day of acetaminophen MEDICATION WASTE Product Size: 1000 mg Product Wasted: ___ mg Hydromorphone 15 mg, 30 mL, No Longer Route: IV, Active 2015[place] Initial Loading Dose: 0.4mg, ELEVATED GUARD Dose: 0.3 mg, ELEVATED GUARD Lockout: 15 minutes, Continuous Basal Rate: 0 mg, 4 Hour Limit (In MG): 4.8, Drug Form: INJ, Continuous, Start date: 09/03/16 12:00:00 CARDIOTHORACIC SURGEON, Duration: 30 day, Stop date: ...Notes: (Same as: Dilaudid) conc=0.5 mg/ml Hydromorphone ELEVATED GUARD Dose: ;Delay: ;Basal: Naloxone 0.04 mg, 0.1 mL, No Longer Route: IVP, Drug Active 2015 [place] form: INJ, Q2MIN, Dosing Weight 54.318, kg, PRN Narcotic Reversal, Start date: 09/03/16 11:32:00 CARDIOTHORACIC SURGEON, Duration: 30 day, Stop date: 10/03/16 11:31:00 CSTNotes: Same as Narcan Calcium 1,000 mg, 10 mL, Inactive Gluconate Route: IVPB, 2015 [place] ONCE, Dosing Weight 54.318, kg, Start date: 09/03/16 11:13:00 CARDIOTHORACIC SURGEON, Stop date: 09/03/16 11:13:00 CSTNotes: WASTE: F/P - Sink; E - Municipal Trash Bin phenol 1 spray, Route: No Longer TOP, Q2H, Drug Active 2015 [place] form: SPRY, PRN Sore Throat, Start date: 09/03/16 11:12:00 CARDIOTHORACIC SURGEON, Duration: 30 day, Stop date: 10/03/16 11:11:00 CSTNotes: WASTE: F/P - Black; E - Municipal Trash Bin Reglan 10 mg, 2 mL, Inactive Route: IVP, Drug 2015 [place] form: INJ, Q8H, Dosing Weight 54.318, kg, Start date: 09/03/16 0:00:00 CARDIOTHORACIC SURGEON, Duration: 3 day, Stop date: 09/05/16 16:00:00 CSTNotes: (Same as: Reglan) ketOROLAC 30 30 mg, 1 mL, No Longer mg/mL injectable Route: IVP, Drug Active 2015 [place] solution form: INJ, Q6H, Dosing Weight 54.318, kg, Priority: STAT, Start date: 08/31/16 12:13:00 CARDIOTHORACIC SURGEON, Duration: 4 day, Stop date: 09/04/16 12:00:00 CSTNotes: (Same as:Toradol) IV bolus must be given >15 seconds. Give IM administration slowly and deeply into the muscle. Not for use > 4 days MEDICATION WASTE Product Size: 30 mg Product Wasted: ___ mg Lactulose 667 10 gm, 15 mL, No Longer MG/ML Oral Route: PO, Drug Active 2015 [place] Solution Form: SYRP, Dosing Weight 54.318, kg, TID, PRN Bowel Movements, Start date: 08/31/16 5:23:00 CARDIOTHORACIC SURGEON, Duration: 30 day, Stop date: 09/30/16 5:22:00 CSTNotes: (Same as:Chronulac) Miralax 17 gm, 1 pkt, No Longer Route: PO, Drug Active 2015 [place] form: PWDR, BID, Dosing Weight 54.318, kg, Start date: 08/30/16 9:00:00 CARDIOTHORACIC SURGEON, Duration: 30 day, Stop date: 09/28/16 17:00:00 CSTNotes: Dissolve in 8 oz of water or juice. (Same as: Miralax) Cefoxitin 1000 1 gm, Route: Inactive MG Injection IVPB, Drug form: 2015[place] INJ, Q6H, Dosing Weight 54.318, kg, Start date: 08/30/16 0:00:00 CARDIOTHORACIC SURGEON, Duration: 1 doses or times, Stop date: 08/30/16 0:00:00 CSTNotes: (Same As: Mefoxin) Ketorolac 15 mg, 1 mL, No Longer Route: IVP, Drug Active 2015 [place] form: INJ, Q6H, Dosing Weight 54.318, kg, Start date: 08/30/16 0:00:00 CARDIOTHORACIC SURGEON, Duration: 6 doses or times, Stop date: 08/31/16 6:00:00 CSTNotes: (Same as:Toradol) IV bolus must be given >15 seconds. Give IM administration slowly and deeply into the muscle. Not for use > 4 days. Famotidine 20 mg, 1 tab, No Longer Route: PO, Drug Active 2015 [place] form: TAB, Q12H, Dosing Weight 54.318, kg, Start date: 08/29/16 21:00:00 CARDIOTHORACIC SURGEON, Duration: 30 day, Stop date: 09/28/16 9:00:00 CSTNotes: (Same as: Pepcid) Hydromorphone 0.2 mg, 0.2 mL, Inactive Route: IVP, Drug 2015 [place] form: INJ, PRN, Dosing Weight 54.318, kg, PRN Pain Score 7-10, Start date: 08/29/16 20:21:00 CARDIOTHORACIC SURGEON, Duration: 1 day, Stop date: 08/30/16 20:20:00 CSTNotes: Same as: Dilaudid glycopyrrolate Route: IV, Drug Inactive (ANES) form: INJ, ONCE, 2015 [place] Stop date: 08/29/16 20:12:00 CARDIOTHORACIC SURGEON neostigmine Route: IV, Drug Inactive (ANES) form: INJ, ONCE, 2015 [place] Stop date: 08/29/16 20:12:00 CARDIOTHORACIC SURGEON ondansetron Route: IV, Drug Inactive (ANES) form: INJ, ONCE, 2015 [place] Stop date: 08/29/16 20:12:00 CARDIOTHORACIC SURGEON ketOROLAC (ANES) IV, ONCE Inactive 2015 [place] Dilaudid (ANES) Route: IV, Drug Inactive form: INJ, ONCE, 2015 [place] Stop date: 08/29/16 20:01:00 CARDIOTHORACIC SURGEON Tobramycin 70 mg, 1.75 mL, No Longer Route: INHALER, Active 2015 [place] Drug form: SOLN, RBID, Dosing Weight 54.318, kg, Start date: 08/29/16 20:00:00 CARDIOTHORACIC SURGEON, Duration: 30 day, Stop date: 09/28/16 8:00:00 CSTNotes: TIME CRITICAL MEDICATION (Same As: Nebcin) FOR NEB USE ONLY Acetaminophen 1 tab, Route: No Longer 325 MG / PO, Drug Form: Active 2015 [place] Hydrocodone TAB, Dosing Bitartrate 5 MG Weight 54.318, Oral Tablet kg, Q4H, PRN Pain Score 4-6, Start date: 08/29/16 20:00:00 CARDIOTHORACIC SURGEON, Duration: 30 day, Stop date: 09/28/16 19:59:00 CSTNotes: (Same as: [place] 325/5) Do not exceed 4gm/day of acetaminophen. Ondansetron 4 mg, 2 mL, No Longer Route: IVP, Drug Active 2015 [place] form: INJ, Q6H, Dosing Weight 54.318, kg, PRN Nausea & Vomiting, Start date: 08/29/16 20:00:00 CARDIOTHORACIC SURGEON, Duration: 30 day, Stop date: 09/28/16 19:59:00 CSTNotes: (Same as: Zofran) MEDICATION WASTE Product Size: 4 mg Product Wasted: ___ mg Calcium Chloride 1,000 mL, Rate: No Longer 0.0014 MEQ/ML / 125 ml/hr, Active 2015 [place] Potassium Infuse over: 8 Chloride 0.004 hr, Route: IV, MEQ/ML / Sodium Dosing Weight Chloride 0.103 54.318 kg, Total MEQ/ML / Sodium Volume: 1,000, Lactate 0.028 Start date: MEQ/ML 08/29/16 Injectable 20:00:00 CARDIOTHORACIC SURGEON, Solution Duration: 30 day, Stop date: 09/28/16 19:59:00 CARDIOTHORACIC SURGEON acetaminophen Route: IV, Drug Inactive (ANES) form: INJ, ONCE, 2015 [place] Stop date: 08/29/16 19:41:00 CARDIOTHORACIC SURGEON dexamethasone Route: IV, Drug Inactive (ANES) form: INJ, ONCE, 2015 [place] Stop date: 08/29/16 19:41:00 CARDIOTHORACIC SURGEON phenylephrine Route: IV, Drug Inactive (ANES) form: INJ, ONCE, 2015 [place] Stop date: 08/29/16 19:11:00 CARDIOTHORACIC SURGEON propofol (ANES) Route: IV, Drug Inactive form: INJ, ONCE, 2015 [place] Stop date: 08/29/16 19:06:00 CARDIOTHORACIC SURGEON fentaNYL (ANES) Route: IV, Drug Inactive form: INJ, ONCE, 2015 [place] Stop date: 08/29/16 19:06:00 CARDIOTHORACIC SURGEON lidocaine (ANES) Route: IV, Drug Inactive form: INJ, ONCE, 2015 [place] Stop date: 08/29/16 19:06:00 CARDIOTHORACIC SURGEON cefOXitin (ANES) Route: IV, Drug Inactive form: INJ, ONCE, 2015 [place] Stop date: 08/29/16 19:06:00 CARDIOTHORACIC SURGEON rocuronium Route: IV, Drug Inactive (ANES) form: INJ, ONCE, 2015 [place] Stop date: 08/29/16 19:06:00 CARDIOTHORACIC SURGEON albuterol (ANES) Route: IV, Drug Inactive form: AERO/A, 2015 [place] , Stop date: 08/29/16 18:56:00 CARDIOTHORACIC SURGEON LR 1000 mL INJ Route: IV, Total Inactive (ANES) Volume: 1,000, 2015 [place] Start date: 08/29/16 17:30:00 CARDIOTHORACIC SURGEON, Stop date: 08/29/16 18:30:00 CARDIOTHORACIC SURGEON Fentanyl 50 microgram, Inactive Route: IVP, 2015 [place] ONCE, Dosing Weight 54.318, kg, Start date: 08/29/16 17:05:00 CARDIOTHORACIC SURGEON, Stop date: 08/29/16 17:05:00 CARDIOTHORACIC SURGEON Lactated Ringers 1,000 mL, Rate: No Longer 1,000 mL 40 ml/hr, Infuse Active 2015 [place] over: 25 hr, Route: IV, Dosing Weight 54.318 kg, Total Volume: 1,000, Start date: 08/29/16 14:41:00 CARDIOTHORACIC SURGEON, Duration: 30 day, Stop date: 09/28/16 14:40:00 CARDIOTHORACIC SURGEON influenza virus 0.5 mL, Route: Inactive vaccine, IM, Drug Form: 2015 [place] inactivated SUSP, Daily, Start date: 08/29/16 9:00:00 CARDIOTHORACIC SURGEON, Duration: 1 doses or times, Stop date: 08/29/16 9:00:00 CSTNotes: (Same as: Fluzone Quadrivalent, Fluarix Quadrivalent) For 3 years of age and older (0.5 mL IM) Shake well before use Pulmozyme 2.5 mg, 2.5 mL, No Longer Route: NEB, Drug Active 2015 [place] form: SOLN, RDaily, Dosing Weight 54.318, kg, Start date: 08/29/16 8:00:00 CARDIOTHORACIC SURGEON, Duration: 30 day, Stop date: 09/27/16 8:00:00 CSTNotes: (Same as: Pulmozyme) Keep refrigerated. Protect from light. Do not dilute or mix w/other agents Sodium Chloride 4 mL, Route: No Longer 3% inhalation NEB, Drug Form: Active 2015 [place] solution SOLN, Dosing Weight 54.318, kg, RBID, Start date: 08/29/16 8:00:00 CARDIOTHORACIC SURGEON, Duration: 30 day, Stop date: 09/27/16 20:00:00 CSTNotes: SEE RT DOCUMENTATION (Same as: Hypertonic Saline 3%, Inhalation) Sodium Chloride 4 mL, Route: Inactive 1.2 MEQ/ML NEB, Drug Form: 2015 [place] Inhalant AERO, Dosing Solution Weight 54.318, kg, RBID, Start date: 08/29/16 8:00:00 CARDIOTHORACIC SURGEON, Duration: 30 day, Stop date: 09/27/16 20:00:00 CARDIOTHORACIC SURGEON Cefoxitin 2 gm, Route: No Longer IVPB, ONCALL, Active 2015 [place] Dosing Weight 54.318, kg, Start date: 08/29/16 8:00:00 CARDIOTHORACIC SURGEON, Duration: 1 doses or timesNotes: (Same As: Mefoxin) MEDICATION WASTE Product Size: 2000 mg Product Wasted: ___ mg Albuterol 0.83 2.49 mg, 3 mL, No Longer MG/ML Inhalant Route: NEB, Drug Active 2015 [place] Solution form: SOLN, PRN, Dosing Weight 54.318, kg, PRN Respiratory Protocol, Start date: 08/29/16 6:12:00 CARDIOTHORACIC SURGEON, Duration: 30 day, Stop date: 09/28/16 6:11:00 CSTNotes: SEE RT DOCUMENTATION (Same as: Proventil) Dilaudid 1 mg, 1 mL, No Longer Route: IVP, Drug Active 2015 [place] form: INJ, Q4H, Dosing Weight 54.318, kg, PRN Pain Score 7-10, Start date: 08/29/16 1:01:00 CARDIOTHORACIC SURGEON, Duration: 30 day, Stop date: 09/28/16 1:00:00 CSTNotes: Same as: Dilaudid Tobramycin 70 mg, 1.75 mL, No Longer Route: INHALER, Active 2015 [place] Drug form: SOLN, RQ12H, Dosing Weight 54.318, kg, Start date: 08/28/16 23:53:00 CARDIOTHORACIC SURGEON, Duration: 30 day, Stop date: 09/27/16 16:00:00 CSTNotes: TIME CRITICAL MEDICATION (Same As: Nebcin) FOR NEB USE ONLY Sodium Chloride 1,000 mL, Rate: No Longer 0.154 MEQ/ML 50 ml/hr, Infuse Active 2015 [place] Injectable over: 20 hr, Solution Route: IV, Dosing Weight 54.318 kg, Total Volume: 1,000, Start date: 08/28/16 23:44:00 CARDIOTHORACIC SURGEON, Stop date: 09/27/16 23:43:00 CARDIOTHORACIC SURGEON Ondansetron 4 mg, 2 mL, No Longer Route: IVP, Drug Active 2015 [place] form: INJ, Q6H, Dosing Weight 54.318, kg, PRN Nausea & Vomiting, Start date: 08/28/16 23:44:00 CARDIOTHORACIC SURGEON, Duration: 30 day, Stop date: 09/27/16 23:43:00 CSTNotes: (Same as: Zofran) MEDICATION WASTE Product Size: 4 mg Product Wasted: ___ mg Morphine 2 mg, 1 mL, No Longer Route: IVP, Drug Active 2015 [place] form: INJ, Q3H, Dosing Weight 54.318, kg, PRN Pain Score 7-10, Start date: 08/28/16 23:44:00 CARDIOTHORACIC SURGEON, Duration: 30 day, Stop date: 09/27/16 23:43:00 CSTNotes: (Same as:MORPhine Sulfate) Saline Flush 10 ml, Route: No Longer 0.9% IVP, Drug Form: Active 2015 [place] INJ, Dosing Weight 54.318, kg, PRN, PRN Line Flush, Start date: 08/28/16 23:44:00 CARDIOTHORACIC SURGEON, Duration: 30 day, Stop date: 09/27/16 23:43:00 CSTNotes: (Same as: BD Posiflush) Dornase Emil 1 2.5 mg=2.5 ml, Active MG/ML Inhalant NEB, Daily, # 30 2015 [place] Solution ea, 0 Refill(s) [Pulmozyme] Tobramycin 70 mg, INHALER, Active Q12H, 0 2015 [place] Refill(s) Allergies, Adverse Reactions, Alerts Substance Category Reaction Severity Reaction Status Date Comments Source type Reported Immunizations Immunization Date Given Site Status Last Updated Comments Source influenza virus 08/31/2016 Not Given [place] vaccine, inactivated<sup>1 </sup> Results Order Name Results Value Reference Date Interpretation Comments Source Range Abdomen 1 v Abdomen 1 v Patient Name: BRANDY CHATMAN 09/20 - [facility] [place] Placement Placement DX : 1995; Age: 21 years y/o Male DX MR: [id number] Read by: Trevon Fiore MD Dictated Date/time: 09/20/16 18:02 Electronically Signed by: Trevon Fiore MD 09/20/16 18:03 FINAL REPORT Study: Abdomen 1 v for Placement DX Comparison: 09/12/2016 Clinical Indication: Tube Placement NG; Collimated exam centered on the EG junction demonstrating the NG tube tip at the proximal gastric lumen. Incidental note is made of heterogeneous interstitial opacity at the lower lung posadas bilaterall y. The tip of a central venous catheter is noted at the distal SVC. SL: [facility] CHEM PANEL eGFR 173 09/20 Result Comment: The eGFR is calculated using the CKD-EPI formula. In most young, healthy individuals the eGFR will be >90 mL/ min/1.73m2. The eGFR declines with age. An eGFR of 60-89 may be normal in mL/min/1. some populations, particularly the elderly, for whom the CKD-EPI formula has not been extensively validated. Use of the eGFR is not recommended in the following populations: [place] [id number] Individuals with unstable creatinine concentrations, including patients and those with serious co-morbid conditions. Patients with extremes in muscle mass or diet. The data above are obtained from the National Kid[employer] Disease Education Program (NKDEP) which additionally recommends that when the eGFR is used in patients with extremes of body mass index for purposes of drug dosing, the eGFR should be multiplied by the estimated BMI. CHEM PANEL Calcium Lvl 7.4 mg/dL 8.5 - 10.5 09/20 [facility] CHEM PANEL Bili Total 0.4 mg/dL 0.2 - 1.3 09/20 [facility] CHEM PANEL AGAP 4.0 meq/L 10.0 - 09/20 MH 20.0 [facility] CHEM PANEL Total 7.2 g/dL 6.4 - 8.4 09/20 [facility] CHEM PANEL B/C Ratio 24 6 - 25 09/20 [facility] CHEM PANEL Globulin 5.9 g/dL 2.7 - 4.2 09/20 [facility] CHEM PANEL A/G Ratio 0.2 0.7 - 1.6 09/20 [facility] CHEM PANEL ASPARTATE 22 unit/L 0 - 37 09/20 [facility] TRANSAMINASE [facility] CHEM PANEL Sodium Lvl 138 meq/L 135 - 145 09/20 [facility] CHEM PANEL ALANINE 10 unit/L 0 - 65 09/20 AMINOTRANS [facility] RASE CHEM PANEL Albumin Lvl 1.3 g/dL 3.5 - 5.0 09/20 [facility] CHEM PANEL Alk Phos 214 unit/L 39 - 136 09/20 [facility] CHEM PANEL Glucose Lvl 79 mg/dL 70 - 99 09/20 [facility] CHEM PANEL BUN 9 mg/dL 7 - 22 09/20 [facility] CHEM PANEL Creatinine 0.38 mg/dL 0.50 - 09/20 MH Lvl 1.40 [facility] CHEM PANEL CO2 42 meq/L 24 - 32 09/20 Result Comment: [facility] Critical Result(s) called to Evelio_ at 09/20/2016 06:25_ by_nm. Read back OK. CHEM PANEL Potassium 4.0 meq/L 3.5 - 5.1 09/20 MH Lvl [facility] CHEM PANEL Chloride Lvl 96 meq/L 95 - 109 09/20 [facility] CHEM PANEL Magnesium 2.0 mg/dL 1.8 - 2.4 09/20 MH Lv [facility] HEMATOLOGY Basophils 0.5 % 0.0 - 1.0 09/20 [facility] HEMATOLOGY Eosinophils 1.0 % 0.0 - 4.0 09/20 [facility] HEMATOLOGY Segs 80.9 % 45.0 - 09/20 MH 75.0 [facility] HEMATOLOGY Lymphocytes 5.9 % 20.0 - 09/20 MH 40.0 [facility] HEMATOLOGY Monocytes 11.7 % 2.0 - 12.0 09/20 [facility] HEMATOLOGY Eosinophils 0.1 K/CMM 0.0 - 0.5 09/20 MH /2015 [facility] HEMATOLOGY Monocytes # 1.7 K/CMM 0.0 - 0.8 09/20 [facility] HEMATOLOGY Basophils # 0.1 K/CMM 0.0 - 0.2 09/20 [facility] HEMATOLOGY Segs-Bands # 11.7 K/CMM 1.5 - 8.1 09/20 [facility] HEMATOLOGY Lymphocytes 0.9 K/CMM 1.0 - 5.5 09/20 MH # /2015 [facility] HEMATOLOGY PROTIME 17.9 s 12.0 - 09/20 MH 14.7 [facility] HEMATOLOGY INR 1.45 0.85 - 09/20 MH 1.17 [facility] HEMATOLOGY aPTT 41.5 s 22.9 - 09/20 MH 35.8 /2015 [facility] HEMATOLOGY RBC X 10x6 2.88 M/CMM 4.70 - 09/20 MH 6.10 [facility] HEMATOLOGY Hct 23.4 % 42.0 - 09/20 MH 54.0 /2015 [facility] HEMATOLOGY Hgb 7.7 g/dL 14.0 - 09/20 MH 18.0 [facility] HEMATOLOGY RDW 16.1 % 11.5 - 09/20 MH 14. [facility] HEMATOLOGY MPV 7.7 fL 7.4 - 10.4 09/20 MH /2015 [facility] HEMATOLOGY Platelet 548 K/CMM 133 - 450 09/20 MH /2015 [facility] HEMATOLOGY MCH 26.8 pg 27.0 - 09/20 MH 31.0 [facility] HEMATOLOGY MCV 81.2 fL 80.0 - 09/20 MH 94.0 /2015 [facility] HEMATOLOGY MCHC 33.0 g/dL 32.0 - 09/20 MH 36.0 [facility] HEMATOLOGY WBC X 10x3 14.5 K/CMM 3.7 - 10.4 09/20 MH /2015 [facility] CHEM PANEL Magnesium 2.6 mg/dL 1.8 - 2.4 09/20 Lvl /2015 [facility] ELECTROLYTE Potassium 3.9 meq/L 3.5 - 5.1 09/20 MH S Lvl [facility] CHEM PANEL Phosphorus 3.3 mg/dL 2.5 - 4.5 09/19 /2015 [facility] CHEM PANEL Magnesium 1.8 mg/dL 1.8 - 2.4 09/19 Lvl /2015 [facility] ELECTROLYTE Potassium 3.3 meq/L 3.5 - 5.1 09/19 MH S Lvl [facility] BLOOD BANK ABO/Rh B POS 09/19 RESULTS /2015 [facility] BLOOD BANK Antibody Negative 09/19 RESULTS Scrn /2015 [facility] (09/19/16 8:54 AM) BLOOD BANK RBC product Product available 09/19 RESULTS /2015 [facility] (09/19/16 8:54 AM) CHEM PANEL eGFR 172 09/19 Result Comment: The eGFR is calculated using the CKD-EPI formula. In most young, healthy individuals the eGFR will be >90 mL/ min/1.73m2. The eGFR declines with age. An eGFR of 60-89 may be normal in mL/min/1. some populations, particularly the elderly, for whom the CKD-EPI formula has not been extensively validated. Use of the eGFR is not recommended in the following populations: [facility] 3m2 Individuals with unstable creatinine concentrations, including patients and those with serious co-morbid conditions. Patients with extremes in muscle mass or diet. The data above are obtained from the National Kidney Disease Education Program (NKDEP) which additionally recommends that when the eGFR is used in patients with extremes of body mass index for purposes of drug dosing, the eGFR should be multiplied by the estimated BMI. CHEM PANEL Chloride Lvl 88 meq/L 95 - 109 09/19 [facility] CHEM PANEL ASPARTATE 20 unit/L 0 - 37 09/19 [facility] CHEM PANEL Calcium Lvl 7.3 mg/dL 8.5 - 10.5 09/19 [facility] CHEM PANEL Total 7.0 g/dL 6.4 - 8.4 09/19 [facility] CHEM PANEL Bili Total 0.3 mg/dL 0.2 - 1.3 09/19 [facility] CHEM PANEL Sodium Lvl 136 meq/L 135 - 145 09/19 [facility] CHEM PANEL Creatinine 0.38 mg/dL 0.50 - 09/19 Lvl 1.40 [facility] CHEM PANEL Glucose Lvl 117 mg/dL 70 - 99 09/19 [facility] CHEM PANEL Albumin Lvl 1.3 g/dL 3.5 - 5.0 09/19 [facility] CHEM PANEL ALANINE 9 unit/L 0 - 65 09/19 AMINOTRANS [facility] RASE CHEM PANEL Alk Phos 140 unit/L 39 - 136 09/19 [facility] CHEM PANEL BUN 8 mg/dL 7 - 22 09/19 [facility] CHEM PANEL CO2 >45 mEq/L 24 - 32 09/19 Result Comment: [facility] Critical Result(s) called to flavia Shabazz at 09/19/2016 06:43 by gp. Read back OK. CHEM PANEL Globulin 5.7 g/dL 2.7 - 4.2 09/19 /2015 [facility] CHEM PANEL B/C Ratio 21 6 - 25 09/19 [facility] CHEM PANEL A/G Ratio 0.2 0.7 - 1.6 09/19 [facility] HEMATOLOGY Lymphocytes 1.3 K/CMM 1.0 - 5.5 09/19 MH # /2016 [facility] HEMATOLOGY Monocytes # 2.4 K/CMM 0.0 - 0.8 09/19 [facility] HEMATOLOGY Segs-Bands # 10.0 K/CMM 1.5 - 8.1 09/19 [facility] HEMATOLOGY Basophils # 0.1 K/CMM 0.0 - 0.2 09/19 [facility] HEMATOLOGY Eosinophils 0.1 K/CMM 0.0 - 0.5 09/19 MH # /2016 [facility] HEMATOLOGY Monocytes 17.4 % 2.0 - 12.0 09/19 /2015 [facility] HEMATOLOGY Lymphocytes 9.2 % 20.0 - 09/19 MH 40.0 [facility] HEMATOLOGY Basophils 0.5 % 0.0 - 1.0 09/19 [facility] HEMATOLOGY Eosinophils 0.7 % 0.0 - 4.0 09/19 [facility] HEMATOLOGY Segs 72.2 % 45.0 - 09/19 MH 75.0 [facility] HEMATOLOGY MCHC 32.8 g/dL 32.0 - 09/19 MH 36.0 [facility] HEMATOLOGY Hct 20.9 % 42.0 - 09/19 MH 54.0 [facility] HEMATOLOGY MCV 79.9 fL 80.0 - 09/19 MH 94.0 [facility] HEMATOLOGY MCH 26.2 pg 27.0 - 09/19 MH 31.0 [facility] HEMATOLOGY Hgb 6.8 g/dL 14.0 - 09/19 Result MH 18.0 Comment: [facility] Critical Result(s) called to le at 09/19/2016 07:10 by tb. Read back OK. HEMATOLOGY RBC 2.61 M/CMM 4.70 - 09/19 MH 6. [facility] HEMATOLOGY WBC 13.8 K/CMM 3.7 - 10.4 09/19 [facility] HEMATOLOGY RDW 16.2 % 11.5 - 09/19 MH 14.5 /2016 [facility] HEMATOLOGY MPV 8.0 fL 7.4 - 10.4 09/19 [facility] HEMATOLOGY Platelet 634 K/CMM 133 - 450 09/19 [facility] Abscess Abscess Patient Name: BRANDY CHATMAN 09/19 - [facility] abdomen abdomen /2016 - [place] peritoneum peritoneum : 1995; Age: 21 years y/o Male drainage VR drainage VR MR: [id number] Read by: Dago Montoya MD Dictated Date/time: 09/19/16 16:05 Electronically Signed by: Dago Montoya MD 09/19/16 16:15 FINAL REPORT PROCEDURE: Percutaneous drainage of right lateral abdominal abscess. PHYSICIAN PROVIDING SERVICE: Dago Montoya M.D. HISTORY: Right lateral abdominal wall fluid collection is demonstrated on the computed tomography scan of the abdomen and pelvis of 09/16/2016. The patient is a 21-year-old male with cystic fibrosis who initially underwent an ileocolectomy/ right hemicolectomy on 08/29/2016 for intussusception.. On 09/06/2016, the patient underwent a repeat exploratory laparotomy, abdominal washout, resection of ileal colonic anastomosis, and aspiration of a new ileocolonic anastomosis with diverting loop ileostomy. IMAGING STUDIES REVIEWED: Computed tomography scan of the abdomen and pelvis without contrast 09/16/2016. TECHNIQUE: The patient was in the intensive care unit and therefore the procedure was performed at the bedside in the intensive care unit under ultrasound guidance. A generous portion of the right later al abdomen was prepped with ChloraPrep and draped. Sonography of the right side of the abdomen demonstrates a large right-sided fluid collection in the mid and lower abdomen similar to the findings on t he computed tomography scan. By sonography, the collection is very complex with multiple large areas of echogenicity and septations. A suitable right mid - - lower abdominal location at approximately the posterior axillary line was chosen for tube placement by ultrasound. The insertion site was anesthetized with 1% lidocaine. A 5mm incision was made with a #11 blade. A 19-gauge needle was carefully adv anced into the collection utilizing direct ultrasound guidance with visualization of the needle entering the collection. A small amount of cloudy yellow fluid was obtained indicating good position withi n the collection. A.035 inch Amplatz guidewire was then advanced into the collection without difficulty. The tract was dilated to 14-Canadian. A 14-Canadian cope loop multipurpose drainage catheter was then advanced into the collection. Approximately 250 mL of cloudy yellow fluid was obtained. This was less than expected by the size of the collection. Repeat sonography was performed demonstrating good pos ition of the tube within the collection with much of the lucent area of the collection drained. The remaining large amount of echogenic material within the collection which appears to not be readily roxie inable. Further attempts were made to obtain more fluid by redirecting the catheter throughout various portions of the collection. A sample was sent for culture. The catheter was then attached to a a dr ainage bag. Follow-up ultrasound images again demonstrated a residual collection despite the presence of the relatively large tube within the collection with a large amount of echogenic material. It is possible this may represent thick debris or inflammatory material which may not be readily drained by the tube. The patient tolerated the procedure well and suffered no immediate complications. IMPRESSION: Percutaneous drainage of right abdominal fluid collection with a 14-Canadian Canadian cope loop drainage tube. Approximately 250 mL of cloudy material was obtained and a sample sent for culture. As described above, despite manipulation of the catheter, and despite presence of the tube within the collection as demonstrated by ultrasound, a significant residual collection remained. A large amoun t of echogenic material was noted within the residual collection. Therefore , the contents of the collection may not be readily drained. It is suggested that a follow-up computed tomography scan be perfo rmed and if there is still a significant residual collection, surgical evacuation may be indicated. DISPOSITION: 1. Cultures are pending. 2. The catheter will be attached to a drainage bag and output will be monitored. 3.Depending on the amount of drainage and the patient's condition, at some point, repeat CT imaging should be obtained to determine if the collection continues to improve. Due to what appears to be extensive debris and inflammatory material within the collection, may not be drainable only by percutaneous drainage and surgical evacuation may be indicated. SL: [id number] HEMATOLOGY WBC X 10x3 15.2 K/CMM 3.7 - 10.4 09/18 [facility] HEMATOLOGY MPV 7.3 fL 7.4 - 10.4 09/18 [facility] HEMATOLOGY Platelet 619 K/CMM 133 - 450 09/18 /2015 [facility] HEMATOLOGY RDW 16.5 % 11.5 - 09/18 MH 14. [facility] HEMATOLOGY MCHC 32.6 g/dL 32.0 - 09/18 MH 36.0 [facility] HEMATOLOGY MCH 26.4 pg 27.0 - 09/18 MH 31.0 [facility] HEMATOLOGY MCV 81.0 fL 80.0 - 09/18 MH 94.0 [facility] HEMATOLOGY Hct 21.7 % 42.0 - 09/18 MH 54.0 [facility] HEMATOLOGY Hgb 7.1 g/dL 14.0 - 09/18 MH 18.0 [facility] HEMATOLOGY RBC X 10x6 2.67 M/CMM 4.70 - 09/18 MH 6.10 [facility] HEMATOLOGY Eosinophils 0.1 K/CMM 0.0 - 0.5 09/18 MH # /2015 [facility] HEMATOLOGY Monocytes # 2.2 K/CMM 0.0 - 0.8 09/18 [facility] HEMATOLOGY Lymphocytes 0.7 K/CMM 1.0 - 5.5 09/18 MH # /2015 [facility] HEMATOLOGY Segs-Bands # 12.2 K/CMM 1.5 - 8.1 09/18 [facility] HEMATOLOGY Basophils 0.3 % 0.0 - 1.0 09/18 [facility] HEMATOLOGY Eosinophils 0.4 % 0.0 - 4.0 09/18 [facility] HEMATOLOGY Monocytes 14.4 % 2.0 - 12.0 09/18 [facility] HEMATOLOGY Lymphocytes 4.8 % 20.0 - 09/18 MH 40.0 [facility] HEMATOLOGY Segs 80.1 % 45.0 - 09/18 MH 75.0 [facility] ELECTROLYTE CO2 >45 mEq/L 24 - 32 09/18 Result S /2015 Comment: [facility] Critical Result(s) called to isidro padgett at 09/18/2016 06:35 by gp. Read back OK. ELECTROLYTE eGFR 176 09/18 Result Comment: The eGFR is calculated using the CKD-EPI formula. In most young, healthy individuals the eGFR will be > 90 mL/min/1.73m2. The eGFR declines with age. An eGFR of 60-89 may be normal in S mL/min/1. some populations, particularly the elderly, for whom the CKD-EPI formula has not been extensively validated. Use of the eGFR is not recommended in the following populations: [facility] 3m2 Individuals with unstable creatinine concentrations, including patients and those with serious co-morbid conditions. Patients with extremes in muscle mass or diet. The data above are obtained from the National Kidney Disease Education Program (NKDEP) which additionally recommends that when the eGFR is used in patients with extremes of body mass index for purposes of drug dosing, the eGFR should be multiplied by the estimated BMI. ELECTROLYTE Calcium Lvl 7.1 mg/dL 8.5 - 10.5 09/18 S [facility] ELECTROLYTE Chloride Lvl 91 meq/L 95 - 109 09/18 S [facility] ELECTROLYTE Bili Total 0.3 mg/dL 0.2 - 1.3 09/18 S [facility] ELECTROLYTE Creatinine 0.36 mg/dL 0.50 - 09/18 S Lvl 1.40 [facility] ELECTROLYTE Sodium Lvl 137 meq/L 135 - 145 09/18 S [facility] ELECTROLYTE BUN 9 mg/dL 7 - 22 09/18 S [facility] ELECTROLYTE Total 6.5 g/dL 6.4 - 8.4 09/18 S Protein [facility] ELECTROLYTE A/G Ratio 0.2 0.7 - 1.6 09/18 S [facility] ELECTROLYTE B/C Ratio 25 6 - 25 09/18 S [facility] ELECTROLYTE ASPARTATE 19 unit/L 0 - 37 09/18 S TRANSAMINASE [facility] ELECTROLYTE Globulin 5.2 g/dL 2.7 - 4.2 09/18 S [facility] ELECTROLYTE Glucose Lvl 116 mg/dL 70 - 99 09/18 S [facility] ELECTROLYTE Alk Phos 121 unit/L 39 - 136 09/18 S [facility] ELECTROLYTE Albumin Lvl 1.3 g/dL 3.5 - 5.0 09/18 S [facility] ELECTROLYTE ALANINE 9 unit/L 0 - 65 09/18 S AMINOTRANSFE [facility] ELECTROLYTE AGAP 5.0 meq/L 10.0 - 09/17 S 20.0 2016 [facility] HEMATOLOGY Basophils # 0.1 K/CMM 0.0 - 0.2 09/17 [facility] Abdomen/Pel Abdomen/Pelv Abdomen/Pelvis wo IV contrast CT 09/16/2016 10:33 AM CARDIOTHORACIC SURGEON 09/16 - [facility] wo IV is wo IV - [place] contrast CT contrast CT Ordering Physician:Gerald Dahl MD Read by: Priyanka Hoyos MD Dictated Date/time: 09/16/16 16:34 CLINICAL HISTORY: Generalized abdominal pain, acute; abdominal collection and abscess Electronically Signed by: Priyanka Hoyos MD 09/16/16 16:46 FINAL REPORT COMPARISON: Abdominopelvic CT 09/04/2016 TECHNIQUE: 5 mm thick axial images of the abdomen and pelvis were obtained without IV contrast. Oral contrast was administered. Coronal and sagittal reformations were created. FINDINGS: Visualized lung bases demonstrate increased innumerable bibasilar tree-in- bud airspace opacities, now with small scattered subpleural mild patchy airspace opacities bilaterally. Mild right pleural effus ion is slightly decreased in size. Mild right lower lobe dependent subsegmental atelectasis is again noted. Study is limited without the use of IV contrast for evaluation of the solid visceral parenchymal organs. Otherwise, the liver, spleen, pancreas, and adrenal glands are normal. Kidneys and ureters are g rossly normal. Esparza catheter present within the bladder. Gallbladder is contracted and contains vicariously excreted IV contrast. Interval right hemicolectomy postoperative changes are noted, with right ileocolic surgical anastomosis and distal ileal right lower quadrant double barrel ileostomy. Enteral contrast traverses the enti re gastrointestinal tract. Mild diffuse small intestinal circumferential edema is suggested. Right abdominal loculated fluid collection is present, but containing no enteral contrast from the present ex amination or from a prior examination. No free air is present. Moderate diffuse intra-abdominal and subcutaneous fat stranding/edema is present. No mesenteric or retroperitoneal lymphadenopathy is present. Bones demonstrate are normal. IMPRESSION: 1. Interval right hemicolectomy and double barrel distal ileostomy postoperative changes. Negative for pneumoperitoneum. 2. Persistent right abdominal loculated fluid collection extending from the diaphragm down to the right lower quadrant, but without the presence of new or old enteral contrast. 3. Moderate anasarca. 4. Mild diffuse small intestinal edema, likely secondary to anasarca and mesenteric congestion, or possible electrolyte imbalances. 5. Slight increase in the mild right pleural effusion. 6. Slightly increased bibasilar atypical versus typical pneumonia via endobronchial spread, now with few small subpleural patchy areas of consolidation. SL: [id number] ELECTROLYTE AGAP 3.1 meq/L 10.0 - 09/16 MH S 20.0 [facility] CHEM PANEL Phosphorus 2.9 mg/dL 2.5 - 4.5 09/15 [facility] PARATHYROID Ca Ion WB 1.02 1.05 - 09/15 MH PROFILE mMol/L . [facility] PARATHYROID Ca Norm WB 1.01 1.05 - 09/15 MH PROFILE mMol/L . [facility] CHEM PANEL Phosphorus 2.5 mg/dL 2.5 - 4.5 09/14 [facility] HEMATOLOGY Plt Morph Normal 09/14 [facility] (09/14/16 4:04 AM) Chest 1view Chest 1view Patient Name: BRANDY CHATMAN 09/14 - [facility] DX DX - [place] : 1995; Age: 21 years y/o Male MR: [id number] Read by: Bossman Pearl MD Dictated Date/time: 09/14/16 07:23 Electronically Signed by: Bossman Pearl MD 09/14/16 07:26 FINAL REPORT Study: Chest 1view DX 09/14/2016 3:00 AM CARDIOTHORACIC SURGEON Ordering Physician: CHARLOTTE TURCIOS Clinical Indication: Respiratory failure; Comparison: 09/12/2016 1 view chest Endotracheal tube, nasogastric tube and central line are satisfactory. Diffuse bilateral reticular nodular coarse infiltrates persist. Improving regional aeration within the right lung base since 09/12/2016. Developing patchy infiltrate in the right upper lobe. No significant pleural effusion. Heart size remains normal. IMPRESSION: Tubes and lines remain satisfactory. Diffuse interstitial infiltrates persist. Although improved aeration in the right lower lobe, small patchy infiltrate has developed in the right upper lobe since 09/12/2016. SL: [id number] Abdomen AP Abdomen AP Patient Name: BRANDY CHATMAN 09/12 - [facility] DX DX - [place] : 1995; Age: 21 years y/o Male MR: [id number] Read by: Bossman Pearl MD Dictated Date/time: 09/12/16 13:45 Electronically Signed by: Bossman Pearl MD 09/12/16 13:49 FINAL REPORT Study: Abdomen AP DX 09/12/2016 1:09 PM CARDIOTHORACIC SURGEON Ordering Physician: CHARLOTTE TURCIOS Clinical Indication: Tube placement/removal/reposition; Comparison: 09/10/2016 at 2028 1 view abdomen Oral gastric tube is coiled in the stomach. Additional drain overlies the left upper abdomen. Persistent mildly dilated loops of small bowel in the midabdomen which may be secondary to postoperative ileus. Previously administered oral contrast is present in the nondistended colon. There are no new findings. SL: [id number] Chest 1view Chest 1view Portable chest: The endotracheal tube, nasogastric tube and right jugular central line are in satisfactory position. The right arm PICC line has been removed. There is no significant change in the bilat [facility] DX DX eral pulmonary infiltrates compared to the previous exam on 2015. A small right basilar effusion or subsegmental atelectasis is noted. The cardiac silhouette is normal in size. There are no other new findings. Read by: Lawrence Han MD DLAWRENCE-PC Dictated Date/time: 09/12/16 06:46 Electronically Signed by: Lawrence Han MD 09/12/16 06:47 FINAL REPORT TOXICOLOGY Vanco Tr 13.0 ug/ml 09/11 [facility] TOXICOLOGY Vanco Tr TND 05:30 09/11 [facility] Abdomen AP Abdomen AP EXAM: XR ABDOMEN, 1 VIEW 09/10 [facility] DX DX - [place] DATE: 09/10/2016 4:25 PM CARDIOTHORACIC SURGEON Read by: Dickson Bravo MD Dictated Date/time: 09/10/16 20:50 Electronically Signed by: Dickson Bravo MD 09/10/16 20:52 FINAL REPORT INDICATION: Tube placement/removal/reposition. COMPARISON: 09/06/2016. TECHNIQUE: AP supine radiograph of the abdomen. FINDINGS: A nasogastric tube side-port projects over the gastric fundus. A small right pleural effusion is identified. Dilated loops of gas-filled small bowel are noted within the upper abdomen measuring up to 4. 8 cm in diameter. Airspace opacities within the lungs are partially visualized. Surgical skin blanco are noted overlying the mid abdomen. No acute osseous abnormality is present. IMPRESSION: 1. Nasogastric tube side-port projects over the gastric fundus. 2. Dilated loops of gas-filled small bowel within the upper abdomen, which may relate to either ileus or early partial small bowel obstruction, incompletely evaluated. 3. Layering right pleural effusion with airspace opacities within the lungs , partially visualized. SL: [id number] TOXICOLOGY Vanco Tr TND 1700 09/09 [facility] TOXICOLOGY Vanco Tr 13.8 ug/ml 09/09 [facility] Ext Upper Ext Upper Study: Right upper extremity Doppler venous ultrasound 09/09 - [facility] Venous - [place] Doppler Doppler Unilat US Unilat US Clinical Indication: Right upper extremity pain Read by: Calos Silva MD Dictated Date/time: 09/09/16 17:24 Electronically Signed by: Calos Silva MD 09/09/16 17:32 FINAL REPORT Comparison: None FINDINGS: Multiple sonographic images of the right upper extremity were acquired. The right internal jugular vein is not well-visualized secondary to overlying bandage material. Right-sided PICC line is visualized throughout the right brachial, axillary , and subclavian veins. There is a partially occlusive, echogenic thrombus throughout the right subclavian, axillary, and proximal basilic veins. Partially occlusive, echogenic thrombus throughout the proximal to mid portions of the right brachial vein is also seen. The cephalic vein is not well-visualized on this exam. IMPRESSION: Partially occlusive thrombus throughout the right subclavian, axillary, brachial, and basilic veins. Please note that the majority of the thrombus is noted about a right-sided PICC line. The nurse taking care of this patient was notified on 09/09/2016 at 5:30 PM SL: [id number] TOXICOLOGY Vanco Tr 4.2 ug/ml 09/08 [facility] TOXICOLOGY Vanco Tr TND 1100 09/08 [facility] PARATHYROID Ca Norm WB 0.95 1. - 09/08 MH PROFILE mMol/L 11.16 [facility] PARATHYROID Ca Ion WB 0.95 1. - 09/08 MH PROFILE mMol/L 11.16 [facility] PARATHYROID Ca Norm WB 0.90 1. - 09/07 Result MH PROFILE mMol/L 11.16 Comment: [facility] Critical Result(s) called to Jen at 09/07/2016 11:59 bynm. Read back OK. PARATHYROID Ca Ion WB 0.96 1.05 - 09/07 MH PROFILE mMol/L 1. [facility] Chest 1view Chest 1view Chest single view 09/07/201609/07 - [facility] DX DX /2015 - [place] HISTORY: Central line placement. Read by: Jose Strickland MD Dictated Date/time: 09/07/16 04:38 Electronically Signed by: Jose Strickland MD 09/07/16 04:39 FINAL REPORT Comparison is made to 09/06/2016. FINDINGS: Right jugular line and right upper extremity PICC stable. Right base atelectasis/infiltrate is not significantly changed. Left lung shows no focal opacity. Heart size is normal. Aorta is withi n normal limits. The endotracheal tube tip has been advanced and is now only 1.2 cm above the baliee. Gastric tube is stable. IMPRESSION: 1. Advancement of endotracheal tube tip, now only 1.2 cm above bailee. 2. Stable right base atelectasis/infiltrate. SL: [id number] Chest 1view Chest 1view EXAM: XR CHEST 1 VIEW 09/06 - [facility] DX DX /2015 - [place] DATE: 09/06/2016 11:08 PM CARDIOTHORACIC SURGEON Read by: Dickson Bravo MD Dictated Date/time: 09/06/16 23:49 Electronically Signed by: Dickson Bravo MD 09/06/16 23:51 FINAL REPORT INDICATION: Respiratory failure COMPARISON: 09/05/2016 TECHNIQUE: A single AP view of the chest was obtained. FINDINGS: A right internal jugular central catheter has been placed, with the tip projecting over the right atrium. The tip of the right PICC now projects over the distal superior vena cava. An endotracheal tube has been also placed, with the tip projecting approximately 2.7 cm above the bailee. A nasogastric tube is unchanged in position. There is redemonstration of multiple ill-defined airspace opacities throughout the lungs, right greater than left. The cardiac silhouette is not enlarged. The osseous structures are unchanged. IMPRESSION: 1. Interval satisfactory placement of a right internal jugular central catheter and endotracheal tube. A right PICC tip has been advanced, now projecting over the distal superior vena cava. A nasogastric tube is unchanged in position. 2. Unchanged ill-defined airspace opacities throughout the lungs, right greater than left. SL: [id number] CHEM PANEL Lactic Acid 1.6 mMol/L 0.5 - 2.2 09/06 Lvl [facility] CHEM PANEL Bili Direct 0.2 mg/dL 0.0 - 0.3 09/06 [facility] HEMATOLOGY Bands 38.0 % 0.0 - 11.0 09/06 [facility] HEMATOLOGY Metamyelocyt 4.0 % 0.0 - 1.0 09/06 es [place] Atypical 0.0 % <=0.0 % 09/06 [facility] [place]EMAT[facility] Tot Cell Ct 100 09/06 [facility] RBC Morph Normal 09/06 [place] (09/06/16 3:25 AM) HEMATOLOGY Plt Morph Normal 09/06 [place] (09/06/16 3:25 AM) IMMUNOLOGY Prealbumin null 18.0 - 09/06 45.0 [place] LIPIDS Trig 61 mg/dL <=149 09/06 mg/dL [place] Small bowel Small bowel Patient Name: BRANDY CHATMAN 09/06 - [facility] series DX series DX - [place] : 1995; Age: 21 years y/o Male MR: [id number] Read by: Bossman Pearl MD Dictated Date/time: 09/06/16 18:12 Electronically Signed by: Bossman Pearl MD 09/06/16 18:17 FINAL REPORT Study: Small bowel series DX 09/05/2016 5:38 PM CARDIOTHORACIC SURGEON Ordering Physician: CHARLOTTE TURCIOS Clinical Indication: Abdominal pain, acute; Comparison: CT abdomen and pelvis 09/04/2016., Abdomen radiograph September 05, 09/06/2016. Small bowel series Water-soluble contrast had been administered through the patient's nasogastric tube. Although there is dilatation of small bowel, oral contrast has passed to distal small bowel between 3 and 5 hours. There is however increasing pneumoperitoneum developing in the right subhepatic space since the previous study. There is increasing fluid density in the right lower quadrant, as well, which is highly co ncerning for contrast extravasation as would be associated with an anastomotic leak. The critical finding was called to Dr. Manuel at 5:45 PM 09/06/2016. SL: [id number] Abdomen 2 Abdomen 2 Patient Name: BRANDY CHATMAN 09/06 - [facility] views DX - [place] : 1995; Age: 21 years y/o Male MR: [id number] Read by: Bossman Pearl MD Dictated Date/time: 09/06/16 17:31 Electronically Signed by: Bossman Pearl MD 09/06/16 18:11 FINAL REPORT Study: Abdomen 2 views DX 09/06/2016 3:00 AM CARDIOTHORACIC SURGEON Ordering Physician: CHARLOTTE TURCIOS Clinical Indication: Abdominal distension; Comparison: Abdomen radiograph 09/05/2016., CT abdomen pelvis 09/04/2016 2 views abdomen: Nasogastric tube remains in the stomach. Persistent mild distention of small bowel. No colonic distention. Enteral contrast is present within the colon to the rectum. Increasing pneumoperitoneum overlying the right subphrenic region. There is increasing fluid or dilute contrast density overlying the right lower quadrant. These changes are worrisome for contrast extravasation which may be associated with an anastomotic leak. Critical findings were called immediately to Dr. Garrett Manuel 09/06/2016 at 5: 45 PM SL: [id number] Abdomen 1 v Abdomen 1 v Patient Name: BRANDY CHATMAN 09/06 - [facility] for for - [place] Placement Placement DX : 1995; Age: 21 years Male DX MR: [id number] Read by: Silver Hernández MD Dictated Date/time: 09/06/16 07:14 Study: Abdomen 1 v for Placement DX 09/06/2016 12:43 AM CARDIOTHORACIC SURGEON. Electronically Signed by: Silver Hernández MD 09/06/16 07 :35 FINAL REPORT CLINICAL INDICATION: Tube Placement NG COMPARISON: KUB on 09/05/2016 FINDINGS: Views: 1/2 views The nasogastric tube is looped within the stomach with tip projecting over the gastric fundus. Nonspecific bowel gas pattern without evidence of dilatation or pneumoperitoneum. Several midline laparotomy blanco noted. IMPRESSION: Nasogastric tube tip projects over the gastric fundus. SL: [id number] Chest 1view Chest 1view An additional image labeled "final PICC" demonstrates the PICC line to be appropriately positioned within the SVC at the junction with the right atrium. 09/05 - [facility] DX DX - [place] CHEST RADIOGRAPH SINGLE VIEW Read by: Bossman Pearl MD Dictated Date/time: 09/05/16 13:11 INDICATION: Check PICC placement Electronically Signed by: Bossman Pearl MD 09/05/16 13:12 FINAL REPORT - - COMPARISON: None Read by: Jermaine Morales MD Dictated Date/time: 09/05/16 12:10 IMPRESSION: Electronically Signed by: Jermaine Morales MD 09/05/16 12:12 FINAL REPORT The distal end of the right PICC is seen in the region of the superior vena cava; however, the tip is bent and may be in the azygos vein. Consider repositioning. The distal end of the nasogastric tube is seen in the region of the stomach. The lungs are underinflated. There appear to be bilateral parahilar infiltrates, right greater than left. No pleural effusion or pneumothorax are visible. SL:16 Abdomen LUQ Abdomen LUQ Patient Name: BRANDY CHATMAN 09/05 - [facility] US US /2015 - [place] : 1995; Age: 21 years Male MR: [id number] Read by: Silver Hernández MD Dictated Date/time: 09/06/16 10:10 Study: Abdomen LUQ US 09/05/2016 12:35 PM CARDIOTHORACIC SURGEON Electronically Signed by: Silver Hernández MD 09/06/16 10:17 FINAL REPORT CLINICAL INDICATION: post operative ascites. COMPARISON: None TECHNIQUE: Limited sonographic evaluation of the abdominal quadrants to assess for ascites. FINDINGS: No evidence of free fluid within the abdominal quadrants. IMPRESSION: Paracentesis deferred due to the absence of ascites. SL: [id number] Abdomen 2 Abdomen 2 Patient Name: BRANDY CHATMAN 09/05 - [facility] DX views DX - [place] : 1995; Age: 21 years y/o Male MR: [id number] Read by: Bossman Pearl MD Dictated Date/time: 09/05/16 07:14 Electronically Signed by: Bossman Pearl MD 09/05/16 07:18 FINAL REPORT Study: Abdomen 2 views DX 09/05/2016 3:00 AM CARDIOTHORACIC SURGEON Ordering Physician: CHARLOTTE TURCIOS Clinical Indication: Abdominal distension; Comparison: 09/03/2016 2 views abdomen Nasogastric tube terminates in the stomach. Persistent distention of small bowel in the upper and midabdomen. The colon is decompressed. Enteral contrast is again present within the colon to the rectum. Interstitial pulmonary infiltrates are noted within the visualized lung posadas. IMPRESSION: Persistent small bowel distention. SL: [id number] Abdomen/Pel Abdomen/Pelv Abdomen/Pelvis w IV contrast CT 09/04/2016 6:02 PM CARDIOTHORACIC SURGEON 09/04 - [facility] w IV is w IV /2015 - [place] contrast CT contrast CT Ordering Physician:Fadi Farias MD Read by: Priyanka Hoyos MD Dictated Date/time: 09/04/16 18:43 CLINICAL HISTORY: Abdominal distension; Eval for leak from ileocolic anastomosis Electronically Signed by: Priyanka Hoyos MD 09/04/16 18:52 FINAL REPORT COMPARISON: Abdominal radiograph and barium enema 09/01/2016 TECHNIQUE: 5 mm thick axial images of the abdomen and pelvis were obtained with IV contrast. 5 mm thick delayed axial images were obtained. Coronal and sagittal reformations were created. FINDINGS: Visualized lung bases demonstrate a multitude of tree-in-bud airspace opacities with scattered areas of bronchiolectasis. Mild right lower lobe dependent subsegmental atelectasis. Present. Very small right pleural effusion is present. Liver, spleen, pancreas, adrenal glands, and kidneys are normal. Ureters are normal. Bladder is partially distended. Gallbladder is present. Enteral contrast from the recent barium enema is present throughout the colon and is entered the small intestine. Right ileocolic surgical anastomotic staple line is present. No enteral contrast extrava sation into the peritoneal cavity is noted. Mild scattered ascites is present. Multiple loops of dilated small intestine reaching a maximum caliber of 4.2 cm are present.. Appendix is normal. No mesenteric or retroperitoneal lymphadenopathy is present. No free air or free fluid is present. Aortoiliac system is normal. Bones demonstrate are normal. IMPRESSION: 1. Probable ileus. Mild scattered ascites. Mild anasarca. 2. Small right pleural effusion. 3. Bibasilar subacute to chronic atypical pneumonia via endobronchial spread, with associated mild scattered areas of bronchiolectasis. SL: SS[facility]OS-[facility] HEMATOLOGY Metamyelocyt 15.0 % 0.0 - 1.0 09/04 es [facility]EMAT[facility] Atypical 0.0 % <=0.0 % 09/04 [facility] [place]EMAT[facility]Y Bands 48.0 % 0.0 - 11.0 09/04 [facility] HEMAT[facility]Y NUCLEATED 2 /100WB 09/04 RBC'S [facility]AT[facility] Plt Morph Normal 09/04 [facility] (09/04/16 10:20 AM) HEMATOLOGY RBC Morph Normal 09/04 [facility] (09/04/16 10:20 AM) Abdomen 2 Abdomen 2 Abdomen 2 views: The NG tube is in the stomach. There is dilated small bowel in the midabdomen without significant change compared to the earlier radiographs on the same day. Persistent contrast in the 09/03 [facility] views DX views DX distal small bowel and colon is noted without significant transit since the earlier exam. There is no visible pneumoperitoneum. There is no other change Read by: Lawrence Han MD SL DLAWRENCE-PC Dictated Date/time: 09/03/16 23:24 Electronically Signed by: Lawrence Han MD 09/03/16 23:26 FINAL REPORT Abdomen AP Abdomen AP Patient Name: BRANDY CHATMAN 09/03 - [facility] DX DX : 1995; Age: 21 years y/o Male MR: [id number] Read by: Trevon Fiore MD Dictated Date/time: 09/03/16 12:31 Electronically Signed by: Trevon Fiore MD 09/03/16 12:34 FINAL REPORT Study: Abdomen AP DX Comparison: 09/01/2016 Clinical Indication: Abdominal distension; Interval decrease in the amount of enteric contrast at the colon. Interval increase in the amount of enteric contrast at the small bowel at the left side of the abdominopelvic junction. Interval increas e in the number of gas distended and dilated segments of small bowel. Interval placement of NG tube is noted with the tube tip at the gastric fundus. Skin blanco overlie the mid abdomen and pelvis. SL: [id number] Barium Barium enema Patient Name: BRANDY CHATMAN 09/01 - [facility] enema DX DX : 1995; Age: 21 years y/o Male MR: [id number] Read by: Dago Montoya MD Dictated Date/time: 09/01/16 15:45 Electronically Signed by: Dago Montoya MD 09/01/16 15:50 FINAL REPORT * GASTROGRAFIN ENEMA HISTORY: 21-year-old male with cystic fibrosis with severe right lower quadrant pain for approximately 3 days. It is reported on outside computed tomography scan demonstrated an ileocolic intussuscepti on. The patient underwent laparoscopic ileocolectomy/hemicolectomy on 07/29. There is extensive retained fecal material within the proximal residual colon and it was requested a Gastrografin enema be performed for therapeutic purposes. TECHNIQUE: 700 mL of Gastrografin was obtained from [facility] for this procedure. A Gastrografin enema was performed in the usual fashion. The 700 mL of Gastrografin only fille d up to the proximal transverse colon and therefore the remainder of the examination was performed with approximately 400 mL of Omnipaque. The Gastrografin material was pushed into the region of the retained fecal material. FINDINGS: The images demonstrate a large amount of fecal material within the residual proximal colon which appears to include portions of the hepatic flexure and transverse colon. There is an ileocolic anastomosi s which is widely patent. Contrast was refluxed through the anastomosis into the distal small bowel. There is no extravasation. There was a moderate amount of fecal material within the descending colon. The Gastrografin was allowed to 12 within the colon for approximately 15- 20 minutes before drainage. Postdrainage Images demonstrate retained contrast material throughout the colon. Follow-up sequential abdominal radiographs are recommended. SL: [id number] Abdomen 2 Abdomen 2 Patient Name: BRANDY CHATMAN 09/01 - [facility] DX views DX [facility] : 1995; Age: 21 years y/o Male MR: [id number] Read by: Dago Montoya MD Dictated Date/time: 09/01/16 10:00 Electronically Signed by: Dago Montoya MD 09/01/16 10:20 FINAL REPORT * ABDOMINAL SERIES, 2 views 09/01/2016 @ 8:57 HISTORY: It is indicated from consultation by general surgery that the patient is a 21-year-old male with cystic fibrosis with severe right lower quadrant pain for approximately 3 days. It is reported o n outside computed tomography scan demonstrated an ileocolic intussusception. The patient underwent laparoscopic ileocolectomy/hemicolectomy on 07/29/2016. COMPARISON: None TECHNIQUE: Supine and upright radiographs of the abdomen were obtained. FINDINGS: 1. There are moderately dilated loops of bowel throughout the abdomen, possible residual obstruction or postoperative ileus. There is a moderate amount of fecal material in the right upper quadrant. 3. Midline surgical skin blanco are noted. SL: [id number] Vital Signs Vital Sign Value Date Comments Source Systolic (mm Hg) 99 09/21/2016 [facility] Diastolic (mm Hg) 52 09/21/2016 [facility] Respitory Rate 16 09/21/2016 [facility] Systolic (mm Hg) 96 09/21/2016 [facility] Diastolic (mm Hg) 50 09/21/2016 [facility] Respitory Rate 19 09/21/2016 [facility] Systolic (mm Hg) 105 09/21/2016 [facility] Diastolic (mm Hg) 57 09/21/2016 [facility] Respitory Rate 14 09/21/2016 [facility] Height 165.1 cm 09/21/2016 [facility] Height 165.1 cm 09/21/2016 [facility] Height 165.1 cm 09/21/2016 [facility] Temperature Oral (F) 98.9 F 09/21/2016 [facility] Temperature Oral (F) 98 F 09/21/2016 [facility] Temperature Oral (F) 98.6 F 09/21/2016 [facility] Heart Rate 94 09/06/2016 [facility] Heart Rate 91 09/06/2016 [facility] Heart Rate 113 09/06/2016 [facility] Weight 54.318 08/29/2016 [facility] BMI Calculated 19.93 08/29/2016 [facility] BMI Calculated 19.93 08/29/2016 [facility] Weight 54.318 08/29/2016 [facility] Encounters Location Location Encounter Encounter Reason Attending ADM DC Status Source Details Type Number For Provider Date Date [facility] [id number] [place] 08/29 09/21 [place]ose[place] /2015 [facility] Procedures Procedure Code Date Perfomer Comments Source
--- OUTSIDE RECORDS SUMMARY | 2018-12-25 23:15 | XMS REPORT | Summary of Care ---
:1995 Author Organization [facility] Address [id number] [place] [phone] Encounter HQ Beatrizr_michael(FIN) [id number] Date(s): 08/28/16 - 09/21/16 [facility] [id number] [place] [phone] Discharge Disposition: Acute Care Attending Physician: Tiara Moseley MD Admitting Physician: Tiara Moseley MD Vital Signs Most recent to oldest 1 2 3 [Reference Range]: Height 165.1 cm 165.1 cm 165.1 cm (09/21/16 2:26 PM) (09/21/16 11:43 AM) (09/21/16 6:46 AM) Current Weight 54.545 kg (08/28/16 11:12 PM) Temperature Oral [96.4-99.1 98.9 DegF 98 DegF 98.6 DegF DegF] (09/21/16 4:00 AM) (09/21/16 12:00 AM) (09/20/16 8:00 PM) Blood Pressure 99/52 mmHg 96/50 mmHg 105/57 mmHg [90-140/60-90 mmHg] (09/21/16 5:00 PM) (09/21/16 4:00 PM) (09/21/16 3:00 PM) Respiratory Rate [14-20 16 BRMIN 19 BRMIN 14 BRMIN BRMIN] (09/21/16 5:00 PM) (09/21/16 4:00 PM) (09/21/16 3:00 PM) Peripheral Pulse Rate 94 bpm 91 bpm 113 bpm [60-100 bpm] (09/06/16 4:15 PM) (09/06/16 12:00 PM) *HI* (09/06/16 4:00 AM) Weight 54.318 kg 54.318 kg (08/28/16 11:48 PM) (08/28/16 11:17 PM) Body Mass Index 19.93 m2 19.93 m2 (08/28/16 11:48 PM) (08/28/16 11:17 PM) Problem List Condition Effective Dates Status Health Status Informant Achromobacter(Confirmed)1 Active Cystic fibrosis(Confirmed) Resolved 1Problem added by Discern Expert. Allergies, Adverse Reactions, Alerts Substance Reaction Severity Status NKDA Active Medications 1/2NS + KCL 20mEq/L 1000ml (Premix) 1,000 mL 1,000 mL, Rate: 100 ml/hr, Infuse over: 10 hr, Route: IV, Dosing Weight 54.318 kg, Total Volume: 1,000, Start date: 09/04/16 10:32:00 SOCIAL SCIENTIST, Duration: 30 day, Stop date: 10/04/16 10:31:00 SOCIAL SCIENTIST Notes: PREMIX IV - Do Not AlterWASTE: F/P - Sink; E - Municipal Trash Bin Start Date: 09/04/16 Stop Date: 09/04/16 Status: Discontinuedacetaminophen 1,000 mg, 100 mL, Route: IV, Drug form: INJ, Q6Hnow, Dosing Weight 54.318, kg, Start date: 09/07/16 4:15:00 SOCIAL SCIENTIST, Stop date: 09/08/16 16:15:00 SOCIAL SCIENTIST Notes: Infuse over 15 minutesDo not exceed 4gm/day of acetaminophen MEDICATION WASTE ProductSize: 1000 mgProduct Wasted: ___ mg Start Date: 09/07/16 Stop Date: 09/07/16 Status: Discontinuedacetaminophen 1,000 mg, 100 mL, Route: IV, Drug form: INJ, Q6H, Dosing Weight 54.318, kg, PRN For Temp > 101 F, Start date: 09/07/16 16:54:00 SOCIAL SCIENTIST, Duration: 24 hr, Stop date : 09/08/16 16:53:00 SOCIAL SCIENTIST Notes: Infuse over 15 minutesDo not exceed 4gm/day of acetaminophen MEDICATION WASTE ProductSize: 1000 mgProduct Wasted: ___ mg Start Date: 09/07/16 Stop Date: 09/08/16 Status: Completedacetaminophen 650 mg=20.3 mL, NG, Q4H, PRN Pain 1-3/Temp > 100.4 F, 0 Refill(s) Start Date: 09/21/16 Status: Orderedacetaminophen 650 mg, 20.3 mL, Route: NG, Drug form: LIQ, Q4H, Dosing Weight 54.318, kg, PRN Pain 1-3/Temp > 100.4 F, Start date: 09/10/16 21:39:00 SOCIAL SCIENTIST, Duration: 30 day, Stop date: 10/10/16 21:38:00 SOCIAL SCIENTIST Notes: Max bvagvndlxycok=1271ed/day (4 gm/day). (Same as: Tylenol) Start Date: 09/10/16 Stop Date: 09/21/16 Status: Discontinuedacetaminophen (ANES) Route: IV, Drug form: INJ, ONCE, Stop date: 08/29/16 19:41:00 SOCIAL SCIENTIST Start Date: 08/29/16 Stop Date: 08/29/16 Status: Completedacetaminophen-hydrocodone 325 mg-5 mg oral tablet 1 tab, Route: PO, Drug Form: TAB, Dosing Weight 54.318, kg, Q4H, PRN Pain Score 4-6, Start date: 08/29/16 20:00:00 SOCIAL SCIENTIST, Duration: 30 day, Stop date: 09/28/16 19 :59:00 SOCIAL SCIENTIST Notes: (Same as: [place] 325/5) Do not exceed 4gm/day of acetaminophen. Start Date: 08/29/16 Stop Date: 09/03/16 Status: DiscontinuedacetaZOLAMIDE 250 mg, Route: IVP, Drug form: PDR/INJ, Daily, Dosing Weight 54.318, kg, Start date: 09/19/16 9:00:00 SOCIAL SCIENTIST, Duration: 30 day, Stop date: 10/18/16 9:00:00 SOCIAL SCIENTIST Notes: (Same as: Diamox) Start Date: 09/19/16 Stop Date: 09/21/16 Status: DiscontinuedacetaZOLAMIDE 250 mg, Route: IVP, Drug form: PDR/INJ, Daily, Dosing Weight 54.318, kg, Start date: 09/11/16 17:41:00 SOCIAL SCIENTIST, Stop date: 09/15/16 9:00:00 SOCIAL SCIENTIST Notes: (Same as: Diamox) Start Date: 09/11/16 Stop Date: 09/12/16 Status: DiscontinuedacetaZOLAMIDE 250 mg, IVP, Daily, 0 Refill(s) Start Date: 09/21/16 Status: Orderedacetylcysteine oral solution (mg) 600 mg, 6 mL, Route: NG, Drug form: SOLN, BID, Dosing Weight 54.318, kg, Start date: 09/07/16 18:00:00 SOCIAL SCIENTIST, Duration: 1 doses or times, Stop date: 09/07/16 18: 00:00 SOCIAL SCIENTIST Notes: WASTE: F/P - Black; E - Municipal Trash Bin Start Date: 09/07/16 Stop Date: 09/07/16 Status: Completedacetylcysteine oral solution (mg) 600 mg, 6 mL, Route: NG, Drug form: SOLN, BID, Dosing Weight 54.318, kg, Start date: 09/05/16 17:41:00 SOCIAL SCIENTIST, Stop date: 09/07/16 17:00:00 SOCIAL SCIENTIST Notes: WASTE: F/P - Black; E - Municipal Trash Bin Start Date: 09/05/16 Stop Date: 09/07/16 Status: Pending Completealbumin human 25% intravenous solution 25 gm, 100 mL, Route: IVPB, Drug form: INJ, ONCE, Dosing Weight 54.318, kg, Start date: 09/14/16 14:17:00 SOCIAL SCIENTIST, Stop date: 09/14/16 14:17:00 SOCIAL SCIENTIST Notes: Lot #: Mfg: (Same as: Plasbumin-25)"blood product derivative"WASTE: F/P - Red; E -Red MEDICATION WASTE Product Size: 25 gmProduct Wasted: ___ gm Start Date: 09/14/16 Stop Date: 09/14/16 Status: Completedalbumin human 25% intravenous solution 25 gm, 100 mL, Route: IVPB, Drug form: INJ, ONCE, Dosing Weight 54.318, kg, Start date: 09/07/16 10:30:00 SOCIAL SCIENTIST, Stop date: 09/07/16 10:30:00 SOCIAL SCIENTIST Notes: Lot #: Mfg: (Same as: Plasbumin-25)"blood product derivative"WASTE: F/P - Red; E -Red MEDICATION WASTE Product Size: 25 gmProduct Wasted: ___ gm Start Date: 09/07/16 Stop Date: 09/07/16 Status: Completedalbumin human 25% intravenous solution 25 gm, 100 mL, Route: IVPB, Drug form: INJ, ONCE, Dosing Weight 54.318, kg, Start date: 09/07/16 10:30:00 SOCIAL SCIENTIST, Stop date: 09/07/16 10:30:00 SOCIAL SCIENTIST Notes: Lot #: Mfg: (Same as: Plasbumin-25)"blood product derivative"WASTE: F/P - Red; E -Red MEDICATION WASTE Product Size: 25 gmProduct Wasted: ___ gm Start Date: 09/07/16 Stop Date: 09/07/16 Status: Completedalbuterol (ANES) Route: IV, Drug form: AERO/A, ONCE, Stop date: 08/29/16 18:56:00 SOCIAL SCIENTIST Start Date: 08/29/16 Stop Date: 08/29/16 Status: Completedalbuterol 0.083% inhalation solution 2.49 mg, 3 mL, Route: NEB, Drug form: SOLN, PRN, Dosing Weight 54.318, kg, PRN Respiratory Protocol,Start date: 08/29/16 6:12:00 SOCIAL SCIENTIST, Duration: 30 day, Stop date: 09/28/16 6:11:00 SOCIAL SCIENTIST Notes: SEE RT DOCUMENTATION (Same as: Proventil) Start Date: 08/29/16 Stop Date: 09/06/16 Status: DiscontinuedAmitiza 8 microgram, 1 cap, Route: PO, Drug form: CAP, BID, Dosing Weight 54.318, kg, Start date: 09/06/16 17:26:00 SOCIAL SCIENTIST, Duration: 30 day, Stop date: 10/06/16 17:00: 00 SOCIAL SCIENTIST Notes: Same as: Amitiza (Do Not Crush) Non-Formulary Start Date: 09/06/16 Stop Date: 09/07/16 Status: Discontinuedcalcium carbonate 500 mg (200 mg elemental calcium) oral tablet 500 mg, 1 tab, Route: PO, Drug form: CHEWTAB, PRN, Dosing Weight 54.318, kg, PRN Abnormal Lab Result, FOR ICU USE ONLY, Start date: 09/07/16 7:55:00 SOCIAL SCIENTIST, Duration: 30 day, Stop date: 10/07/16 7:54:00 SOCIAL SCIENTIST Notes: (Same As: Francks)Calcium Carbonate 500 tt=044 mg elemental calcium Dose=_ mg calcium carbonate ( mg elemental calcium) Start Date: 09/07/16 Stop Date: 09/07/16 Status: Discontinuedcalcium carbonate 500 mg (200 mg elemental calcium) oral tablet 1,000 mg, 2 tab, Route: PO, Drug form: CHEWTAB, PRN, Dosing Weight 54.318, kg, PRN Abnormal Lab Result, FOR ICU USE ONLY, Start date: 09/07/16 7:55:00 SOCIAL SCIENTIST, Duration: 30 day, Stop date: 10/07/16 7:54:00CST Notes: (Same As: Fan)Calcium Carbonate 500 iv=560 mg elemental calcium Dose=_ mg calcium carbonate ( mg elemental calcium) Start Date: 09/07/16 Stop Date: 09/07/16 Status: Discontinuedcalcium carbonate 500 mg (200 mg elemental calcium) oral tablet 500 mg, 1 tab, Route: PO, Drug form: CHEWTAB, PRN, Dosing Weight 54.318, kg, PRN Abnormal Lab Result, FOR ICU USE ONLY, Start date: 09/07/16 10:29:00 SOCIAL SCIENTIST, Duration: 30 day, Stop date: 10/07/16 10:28:00CST Notes: (Same As: Fan)Calcium Carbonate 500 kn=100 mg elemental calcium Dose=_ mg calcium carbonate ( mg elemental calcium) Start Date: 09/07/16 Stop Date: 09/21/16 Status: Discontinuedcalcium carbonate 500 mg (200 mg elemental calcium) oral tablet 1,000 mg, 2 tab, Route: PO, Drug form: CHEWTAB, PRN, Dosing Weight 54.318, kg, PRN Abnormal Lab Result, FOR ICU USE ONLY, Start date: 09/07/16 10:29:00 SOCIAL SCIENTIST, Duration: 30 day, Stop date: 10/07/16 10:28:00 SOCIAL SCIENTIST Notes: (Same As: Tums)Calcium Carbonate 500 ad=870 mg elemental calcium Dose=_ mg calcium carbonate ( mg elemental calcium) Start Date: 09/07/16 Stop Date: 09/21/16 Status: Discontinuedcalcium gluconate + sodium chloride 0.9% INJ 50 mL 1,000 mg, 10 mL, Route: IVPB, ONCE, Dosing Weight 54.318, kg, Start date: 11:13:00 SOCIAL SCIENTIST, Stop date: 09/03/16 11:13:00 SOCIAL SCIENTIST Notes: WASTE: F/P - Sink; E - Municipal Trash Bin Start Date: 09/03/16 Stop Date: 09/03/16 Status: Completedcalcium gluconate + sodium chloride 0.9% INJ 50 mL 1 gm, 10 mL, Route: IVPB, PRN, Dosing Weight 54.318, kg, PRN Abnormal Lab Result , Start date: 09/07/16 7:55:00 SOCIAL SCIENTIST, Duration: 30 day, Stop date: 10/07/16 7:54: 00 SOCIAL SCIENTIST, FOR ICU USE ONLY Notes: WASTE: F/P - Sink; E - Municipal Trash Bin Start Date: 09/07/16 Stop Date: 09/07/16 Status: Discontinuedcalcium gluconate + sodium chloride 0.9% INJ 50 mL 1 gm, 10 mL, Route: IVPB, PRN, Dosing Weight 54.318, kg, PRN Abnormal Lab Result , Start date: 09/07/16 10:29:00 SOCIAL SCIENTIST, Duration: 30 day, Stop date: 10/07/16 10:28 :00 SOCIAL SCIENTIST, FOR ICU USE ONLY Notes: WASTE: F/P - Sink; E - Municipal Trash Bin Start Date: 09/07/16 Stop Date: 09/21/16 Status: DiscontinuedcefOXitin (ANES) Route: IV, Drug form: INJ, ONCE, Stop date: 08/29/16 19:06:00 SOCIAL SCIENTIST Start Date: 08/29/16 Stop Date: 08/29/16 Status: CompletedcefOXitin (SCIP) + sodium chloride 0.9% INJ 100 mL 1 gm, Route: IVPB, Drug form: INJ, Q6H, Dosing Weight 54.318, kg, Start date: 0:00:00 SOCIAL SCIENTIST, Duration: 1 doses or times, Stop date: 08/30/16 0:00:00 SOCIAL SCIENTIST Notes: (Same As: Mefoxin) Start Date: 08/30/16 Stop Date: 08/30/16 Status: CompletedcefOXitin + sodium chloride 0.9% INJ 100 mL 2 gm, Route: IVPB, ONCALL, Dosing Weight 54.318, kg, Start date: 08/29/16 8:00: 00 SOCIAL SCIENTIST, Duration: 1 doses or times Notes: (Same As: Mefoxin) MEDICATION WASTE Product Size: 2000 mgProduct Wasted: ___ mg Start Date: 08/29/16 Stop Date: 09/06/16 Status: Discontinuedceftolozane-tazobactam + sodium chloride 0.9% INJ 100 mL 1.5 gm, IVPB, 100 ml/hr, ABXQ8H, Start date: 09/14/16 16:00:00 SOCIAL SCIENTIST, Duration: 30 , 100 ml Notes: (Same as: Zerbaxa)Non-formulary Start Date: 09/14/16 Stop Date: 09/19/16 Status: DiscontinuedChloraseptic 1.4% spray 1 spray, Route: TOP, Q2H, Drug form: SPRY, PRN Sore Throat, Start date: 11:12:00 SOCIAL SCIENTIST, Duration: 30 day, Stop date: 10/03/16 11:11:00 SOCIAL SCIENTIST Notes: WASTE: F/P - Black; E - Municipal Trash Bin Start Date: 09/03/16 Stop Date: 09/21/16 Status: Discontinuedcolistimethate 150 mg, NEB, [id number], 0 Refill(s) Start Date: 09/21/16 Status: Orderedcolistimethate 150 mg, Route: NEB, Drug form: SOLN, [id number], Dosing Weight 54.318, kg, Start date: 09/20/16 18:30:00 SOCIAL SCIENTIST, Duration: 30 day, Stop date: 10/20/16 6:30:00 SOCIAL SCIENTIST Notes: SEE RT DOCUMENTATION. Start Date: 09/20/16 Stop Date: 09/21/16 Status: Discontinuedcolistimethate + sodium chloride 0.9% INJ 100 mL 90 mg, Route: IVPB, [id number], Dosing Weight 54.318, kg, Start date: 09/20/16 21:00 :00 SOCIAL SCIENTIST, Duration: 30 day, Stop date: 10/20/16 13:00:00 SOCIAL SCIENTIST Notes: (Same As: Coly-Mycin) Start Date: 09/20/16 Stop Date: 09/21/16 Status: Discontinuedcolistimethate + sodium chloride 0.9% INJ 100 mL 90 mg, Route: IVPB, [id number], Dosing Weight 54.318, kg, Start date: 09/21/16 1:00: 00 SOCIAL SCIENTIST, Duration: 30day, Stop date: 10/20/16 17:00:00 SOCIAL SCIENTIST Notes: (Same As: Coly-Mycin) Start Date: 09/21/16 Stop Date: 09/20/16 Status: Deletedcolistimethate + sodium chloride 0.9% INJ 100 mL 250 mg, Route: IV, ONCE, Dosing Weight 54.318, kg, Start date: 09/14/16 11:27: 00 SOCIAL SCIENTIST, Stop date: 09/14/16 11:27:00 SOCIAL SCIENTIST Notes: (Same As: Coly-Mycin) Start Date: 09/14/16 Stop Date: 09/14/16 Status: Completedcolistimethate + sodium chloride 0.9% INJ 100 mL 135 mg, Route: IVPB, [id number], Dosing Weight 54.318, kg, Start date: 09/15/16 12: 00:00 SOCIAL SCIENTIST, Stop date: 10/14/16 12:00:00 SOCIAL SCIENTIST Notes: (Same As: Coly-Mycin) Start Date: 09/15/16 Stop Date: 09/20/16 Status: TtexskunrehyV4CB 1,000 mL 1,000 mL, Rate: 50 ml/hr, Infuse over: 20 hr, Route: IV, Dosing Weight 54.318 kg , Total Volume: 1,000, Start date: 09/20/16 11:57:00 SOCIAL SCIENTIST, Duration: 30 day, Stop date: 10/20/16 11:56:00 SOCIAL SCIENTIST Start Date: 09/20/16 Stop Date: 09/21/16 Status: DwolpolquugyB1C 1/2NS + KCL 20mEq/L 1000ml (Premix) 1,000 mL 1,000 mL, Rate: 100 ml/hr, Infuse over: 10 hr, Route: IV, Dosing Weight 54.318 kg, Total Volume: 1,000, Start date: 09/04/16 18:10:00 SOCIAL SCIENTIST, Duration: 30 day, Stop date: 10/04/16 18:09:00 SOCIAL SCIENTIST Notes: PREMIX IV - Do Not AlterWASTE: F/P - Sink; E - Municipal Trash Bin Start Date: 09/04/16 Stop Date: 09/08/16 Status: DiscontinuedDAPTOmycin + sodium chloride 0.9% INJ 100 mL 350 mg, Route: IVPB, Q24H, Dosing Weight 54.318, kg, Start date: 09/11/16 17:00: 00 SOCIAL SCIENTIST, Duration: 30day, Stop date: 10/10/16 17:00:00 SOCIAL SCIENTIST Notes: (Same As: Sandoval)Restricted use to Infectious Disease Physicians. MEDICATION WASTE Product Size: 500 mgProduct Wasted: ___ mg Start Date: 09/11/16 Stop Date: 09/13/16 Status: Discontinueddexamethasone (ANES) Route: IV, Drug form: INJ, ONCE, Stop date: 08/29/16 19:41:00 SOCIAL SCIENTIST Start Date: 08/29/16 Stop Date: 08/29/16 Status: Completeddexamethasone (ANES) Route: IV, Drug form: INJ, ONCE, Stop date: 09/20/16 15:17:00 SOCIAL SCIENTIST Start Date: 09/20/16 Stop Date: 09/20/16 Status: CompletedDextrose 20% in water 500 mL 500 mL, Rate: 100 ml/hr, Infuse over: 5 hr, Route: IV, Dosing Weight 54.318 kg, Total Volume: 500, Start date: 09/08/16 10:59:00 SOCIAL SCIENTIST, Stop date: 09/08/16 22:00: 00 SOCIAL SCIENTIST Start Date: 09/08/16 Stop Date: 09/08/16 Status: CompletedDextrose 20% in water 500 mL 500 mL, Rate: 100 ml/hr, Infuse over: 5 hr, Route: IV, Dosing Weight 54.318 kg, Total Volume: 500, Start date: 09/06/16 23:11:00 SOCIAL SCIENTIST, Stop date: 09/07/16 23:10: 00 SOCIAL SCIENTIST Start Date: 09/06/16 Stop Date: 09/07/16 Status: CompletedDextrose 5% with 0.45% NaCl IV 1,000 mL 1,000 mL, Rate: 100 ml/hr, Infuse over: 10 hr, Route: IV, Dosing Weight 54.318 kg, Total Volume: 1,000, Start date: 09/04/16 10:28:00 SOCIAL SCIENTIST, Duration: 30 day, Stop date: 10/04/16 10:27:00 SOCIAL SCIENTIST Start Date: 09/04/16 Stop Date: 09/04/16 Status: DiscontinuedDextrose 50% Syringe 12.5 gm, 25 mL, Route: IVP, Drug Form: INJ, Dosing Weight 54.318, kg, PRN, PRN Blood Glucose Results, Start date: 09/07/16 18:47:00 SOCIAL SCIENTIST, Duration: 30 day, Stop date: 10/07/16 18:46:00 SOCIAL SCIENTIST Start Date: 09/07/16 Stop Date: 09/21/16 Status: DiscontinuedDextrose 50% Syringe 25 gm, 50 mL, Route: IVP, Drug Form: INJ, Dosing Weight 54.318, kg, PRN, PRN Blood Glucose Results, Start date: 09/07/16 18:47:00 SOCIAL SCIENTIST, Duration: 30 day, Stop date: 10/07/16 18:46:00 SOCIAL SCIENTIST Start Date: 09/07/16 Stop Date: 09/21/16 Status: DiscontinuedDiflucan 200 mg, 100 mL, Route: IVPB, Drug form: INJ, [id number], Dosing Weight 54.318, kg, Start date: 09/06/1623:00:00 SOCIAL SCIENTIST, Stop date: 10/05/16 23:00:00 SOCIAL SCIENTIST Notes: (Same as: Diflucan) Do not refrigerate Start Date: 09/06/16 Stop Date: 09/15/16 Status: DiscontinuedDilaudid 0.5 mg, 0.5 mL, Route: IVP, Drug form: INJ, Q3H, Dosing Weight 54.318, kg, PRN Pain Score 7-10, Start date: 09/06/16 16:52:00 SOCIAL SCIENTIST, Duration: 30 day, Stop date : 10/06/16 16:51:00 SOCIAL SCIENTIST Notes: Same as: Dilaudid Start Date: 09/06/16 Stop Date: 09/21/16 Status: DiscontinuedDilaudid 1 mg, 1 mL, Route: IVP, Drug form: INJ, Q4H, Dosing Weight 54.318, kg, PRN Pain Score 7-10, Start date: 08/29/16 1:01:00 SOCIAL SCIENTIST, Duration: 30 day, Stop date: 09/28 1:00:00 SOCIAL SCIENTIST Notes: Same as: Dilaudid Start Date: 08/29/16 Stop Date: 09/03/16 Status: DiscontinuedDilaudid (ANES) Route: IV, Drug form: INJ, ONCE, Stop date: 08/29/16 20:01:00 SOCIAL SCIENTIST Start Date: 08/29/16 Stop Date: 08/29/16 Status: CompletedDuoNeb inhalation solution 3 mL, Route: INHALATION, Drug Form: SOLN, Dosing Weight 54.318, kg, RQ6H, Start date: 09/13/16 20:00:00 SOCIAL SCIENTIST, Duration: 30 day, Stop date: 10/13/16 14:00:00 SOCIAL SCIENTIST Notes: (Same as: Duoneb) Start Date: 09/13/16 Stop Date: 09/21/16 Status: DiscontinuedDuoNeb inhalation solution 3 mL, INHALATION, RQ6H, 0 Refill(s) Start Date: 09/21/16 Status: OrderedDuoNeb inhalation solution 3 mL, Route: INHALATION, Drug Form: SOLN, Dosing Weight 54.318, kg, RQ4H, Start date: 09/06/16 19:00:00 SOCIAL SCIENTIST, Duration: 30 day, Stop date: 10/06/16 15:00:00 SOCIAL SCIENTIST Notes: (Same as: Duoneb) Start Date: 09/06/16 Stop Date: 09/13/16 Status: Discontinuedfamotidine 20 mg, 2 mL, Route: IVP, Drug form: INJ, Q12H, Dosing Weight 54.318, kg, Start date: 09/03/16 21:00:00 SOCIAL SCIENTIST, Duration: 30 day, Stop date: 10/03/16 9:00:00 SOCIAL SCIENTIST Notes: (Same as: Pepcid)Can be dilute in 5-10cc NS IVP: Slow IV push over at least 2 minutes. Start Date: 09/03/16 Stop Date: 09/12/16 Status: Discontinuedfamotidine 20 mg, 1 tab, Route: PO, Drug form: TAB, Q12H, Dosing Weight 54.318, kg, Start date: 08/29/16 21:00:00 SOCIAL SCIENTIST, Duration: 30 day, Stop date: 09/28/16 9:00:00 SOCIAL SCIENTIST Notes: (Same as: Pepcid) Start Date: 08/29/16 Stop Date: 09/03/16 Status: Discontinuedfat emulsion, intravenous 250 mL, 31.25 ml/hr, Route: IV, Drug Form: INJ, Daily, Start date: 09/12/16 22: 00:00 SOCIAL SCIENTIST, Stop date:10/11/16 22:00:00 SOCIAL SCIENTIST Notes: (Same as: Intralipid, Liposyn) Start Date: 09/12/16 Stop Date: 09/14/16 Status: Discontinuedfat emulsion, intravenous 250 mL, 31.25 ml/hr, Route: IV, Drug Form: INJ, ONCE, Start date: 09/08/16 22:00 :00 SOCIAL SCIENTIST, Stop date: 09/08/16 22:00:00 SOCIAL SCIENTIST Notes: (Same as: Intralipid, Liposyn) Start Date: 09/08/16 Stop Date: 09/08/16 Status: Completedfat emulsion, intravenous 250 mL, 31.25 ml/hr, Route: IV, Drug Form: INJ, ONCE, Start date: 09/05/16 22:00 :00 SOCIAL SCIENTIST, Stop date: 09/05/16 22:00:00 SOCIAL SCIENTIST Notes: (Same as: Intralipid, Liposyn) Start Date: 09/05/16 Stop Date: 09/06/16 Status: Completedfat emulsion, intravenous 250 mL, 31.25 ml/hr, Route: IV, Drug Form: INJ, Daily, Start date: 09/11/16 22: 00:00 SOCIAL SCIENTIST, Stop date:09/12/16 6:00:00 SOCIAL SCIENTIST Notes: (Same as: Intralipid, Liposyn)Infuse through a 1.2 micron filter Start Date: 09/11/16 Stop Date: 09/12/16 Status: Completedfat emulsion, intravenous 250 mL, 31.25 ml/hr, Route: IV, Drug Form: INJ, ONCE, Start date: 09/06/16 22:00 :00 SOCIAL SCIENTIST, Stop date: 09/06/16 22:00:00 SOCIAL SCIENTIST Notes: (Same as: Intralipid, Liposyn) Start Date: 09/06/16 Stop Date: 09/07/16 Status: Completedfat emulsion, intravenous 250 mL, 31.25 ml/hr, Route: IV, Drug Form: INJ, ONCE, Start date: 09/06/16 1:11: 00 SOCIAL SCIENTIST, Stop date: 09/06/16 1:11:00 SOCIAL SCIENTIST Notes: (Same as: Intralipid, Liposyn) Start Date: 09/06/16 Stop Date: 09/06/16 Status: Completedfat emulsion, intravenous 250 mL IV, 31.25 ml/hr, Start date: 09/09/16 22:00:00 SOCIAL SCIENTIST, Duration: 8, 250 ml, 54.318 Notes: (Same as: Intralipid, Liposyn)Infuse through a 1.2 micron filter Start Date: 09/09/16 Stop Date: 09/11/16 Status: CompletedfentaNYL 50 microgram, Route: IVP, ONCE, Dosing Weight 54.318, kg, Start date: 08/29/16 17:05:00 SOCIAL SCIENTIST, Stop date: 08/29/16 17:05:00 SOCIAL SCIENTIST Start Date: 08/29/16 Stop Date: 08/29/16 Status: CompletedfentaNYL (ANES) Route: IV, Drug form: INJ, ONCE, Stop date: 08/29/16 19:06:00 SOCIAL SCIENTIST Start Date: 08/29/16 Stop Date: 08/29/16 Status: CompletedfentaNYL 5 mcg/mL-NaCl 0.9% injectable solution See Instructions, titrate for pain/sedation, # 1 bag, 0 Refill(s) Start Date: 09/21/16 Status: OrderedfentaNYL 5 microgram/ml NS 250ml (Premix) 1,250 microgram 1,250 microgram, 250 mL, Rate: Titrate, Start Dose: 50 microgram/hr, Titration: 25 microgram/hour every 15 minutes, Goal(s): -2, Max Dose: 300 microgram/hr, Route: IV, Dosing Weight 54.318 kg, Total Volume: 250, Start date: 09/06/16 23: 21:00 SOCIAL SCIENTIST, Dura... Notes: Concentration: 5 microgram / ml Start Date: 09/06/16 Stop Date: 09/21/16 Status: DiscontinuedFlagyl 500 mg, 100 mL, Route: IVPB, Drug form: INJ, [id number], Dosing Weight 54.318, kg, Start date: 09/06/16 23:00:00 SOCIAL SCIENTIST, Duration: 30 day, Stop date: 10/06/16 15:00: 00 SOCIAL SCIENTIST Notes: (Same as: Flagyl) Avoid alcohol. Start Date: 09/06/16 Stop Date: 09/19/16 Status: Discontinuedfurosemide 20 mg=2 mL, IVP, Daily, 0 Refill(s) Start Date: 09/21/16 Status: Orderedfurosemide 20 mg, 2 mL, Route: IVP, Drug form: INJ, Q12H, Dosing Weight 54.318, kg, Start date: 09/10/16 9:47:00 SOCIAL SCIENTIST, Duration: 30 day, Stop date: 10/10/16 9:00:00 SOCIAL SCIENTIST Notes: (Same as: Lasix) Start Date: 09/10/16 Stop Date: 09/13/16 Status: Discontinuedfurosemide 20 mg, 2 mL, Route: IVP, Drug form: INJ, Daily, Dosing Weight 54.318, kg, Start date: 09/14/16 9:00:00 SOCIAL SCIENTIST, Duration: 30 day, Stop date: 10/13/16 9:00:00 SOCIAL SCIENTIST Notes: (Same as: Lasix) Start Date: 09/14/16 Stop Date: 09/21/16 Status: Discontinuedglucagon 1 mg, Route: IM, Drug form: PDR/INJ, PRN, Dosing Weight 54.318, kg, PRN Blood Glucose Results, Startdate: 09/07/16 18:47:00 SOCIAL SCIENTIST, Duration: 30 day, Stop date: 10/07/16 18:46:00 SOCIAL SCIENTIST Start Date: 09/07/16 Stop Date: 09/21/16 Status: Discontinuedglycopyrrolate (ANES) Route: IV, Drug form: INJ, ONCE, Stop date: 08/29/16 20:12:00 SOCIAL SCIENTIST Start Date: 08/29/16 Stop Date: 08/29/16 Status: Completedheparin 5,000 unit=1 mL, SUB-Q, Q12H, 0 Refill(s) Start Date: 09/21/16 Status: Orderedheparin 5,000 unit, Route: SUB-Q, Q12H, Dosing Weight 54.318, kg, Start date: 09/06/16 21:00:00 SOCIAL SCIENTIST, Duration: 30 day, Stop date: 10/06/16 9:00:00 SOCIAL SCIENTIST Start Date: 09/06/16 Stop Date: 09/06/16 Status: Canceledheparin 5,000 unit, 1 mL, Route: SUB-Q, Drug form: INJ, Q12H, Dosing Weight 54.318, kg, Start date: 09/09/1617:49:00 SOCIAL SCIENTIST, Duration: 30 day, Stop date: 10/09/16 9:00:00 SOCIAL SCIENTIST Notes: porcine heparin Start Date: 09/09/16 Stop Date: 09/21/16 Status: Discontinuedhydrocortisone 25 mg, 0.5 mL, Route: IV, Drug form: PDR/INJ, Q12H, Dosing Weight 54.318, kg, Start date: 09/12/16 21:00:00 SOCIAL SCIENTIST, Stop date: 10/12/16 9:00:00 SOCIAL SCIENTIST Notes: (Same as: Solu-CORTEF) Start Date: 09/12/16 Stop Date: 09/14/16 Status: Discontinuedhydrocortisone 50 mg, 1 mL, Route: IV, Drug form: PDR/INJ, Q6H, Dosing Weight 54.318, kg, Start date: 09/07/16 12:00:00 SOCIAL SCIENTIST, Duration: 30 day, Stop date: 10/07/16 6:00: 00 SOCIAL SCIENTIST Notes: (Same as: Solu-CORTEF) Start Date: 09/07/16 Stop Date: 09/12/16 Status: Discontinuedhydromorphone 0.2 mg, 0.2 mL, Route: IVP, Drug form: INJ, PRN, Dosing Weight 54.318, kg, PRN Pain Score 7-10, Start date: 08/29/16 20:21:00 SOCIAL SCIENTIST, Duration: 1 day, Stop date: 08/30/16 20:20:00 SOCIAL SCIENTIST Notes: Same as: Dilaudid Start Date: 08/29/16 Stop Date: 08/29/16 Status: Discontinuedhydromorphone (ANES) Route: IV, Drug form: INJ, ONCE, Stop date: 09/06/16 20:51:00 SOCIAL SCIENTIST Start Date: 09/06/16 Stop Date: 09/06/16 Status: Completedhydromorphone 100 mg/100 mL-NaCl 0.9% intravenous solution 0.5 mg=0.5 mL, IVP, Q3H, PRN Pain Score 7-10, 0 Refill(s) Start Date: 09/21/16 Status: OrderedHYDROmorphone MANUFACTURING ACCOUNTANT 0.5mg/ml 30ml INJ 15 mg 15 mg, 30 mL, Route: IV, Initial Loading Dose: 0.4mg, MANUFACTURING ACCOUNTANT Dose: 0.3 mg, MANUFACTURING ACCOUNTANT Lockout: 15 minutes, Continuous Basal Rate: 0 mg, 4 Hour Limit (In MG): 4.8, Drug Form: INJ, Continuous, Start date: 09/03/1612:00:00 SOCIAL SCIENTIST, Duration: 30 day, Stop date: ... Notes: (Same as: Dilaudid) conc=0.5 mg/mlHydromorphone MANUFACTURING ACCOUNTANT Dose: ;Delay : ;Basal: Start Date: 09/03/16 Stop Date: 09/06/16 Status: Discontinuedinfluenza virus vaccine, inactivated 0.5 mL, Route: IM, Drug Form: SUSP, Daily, Start date: 08/29/16 9:00:00 SOCIAL SCIENTIST, Duration: 1 doses or times, Stop date: 08/29/16 9:00:00 SOCIAL SCIENTIST Notes: (Same as: Fluzone Quadrivalent, Fluarix Quadrivalent)For 3 years of age and older (0.5 mL IM)Shake well before use Start Date: 08/29/16 Stop Date: 08/29/16 Status: Completedinsulin aspart 6 unit, 0.06 mL, Route: SUB-Q, Drug form: SOLN, Sliding Scale, Dosing Weight 54.318, kg, PRN Blood Glucose Results, Start date: 09/07/16 18:47:00 SOCIAL SCIENTIST, Duration: 30 day, Stop date: 10/07/16 18:46:00 SOCIAL SCIENTIST Notes: Roll in palms of hands gently; Do not shake vigorously. (Same as: NovoLOG)"single patient use only"WASTE: F/P - Black; E - Municipal Trash Bin Stable for 28 days at room temperature.Expires in days from Date Start Date: 09/07/16 Stop Date: 09/21/16 Status: Discontinuedinsulin aspart 10 unit, 0.1 mL, Route: SUB-Q, Drug form: SOLN, Sliding Scale, Dosing Weight 54.318, kg, PRN Blood Glucose Results, Start date: 09/07/16 18:47:00 SOCIAL SCIENTIST, Duration: 30 day, Stop date: 10/07/16 18:46:00 SOCIAL SCIENTIST Notes: Roll in palms of hands gently; Do not shake vigorously. (Same as: NovoLOG)"single patient use only"WASTE: F/P - Black; E - Municipal Trash Bin Stable for 28 days at room temperature.Expires in days from Date Start Date: 09/07/16 Stop Date: 09/21/16 Status: Discontinuedinsulin aspart 8 unit, 0.08 mL, Route: SUB-Q, Drug form: SOLN, Sliding Scale, Dosing Weight 54.318, kg, PRN Blood Glucose Results, Start date: 09/07/16 18:47:00 SOCIAL SCIENTIST, Duration: 30 day, Stop date: 10/07/16 18:46:00 SOCIAL SCIENTIST Notes: Roll in palms of hands gently; Do not shake vigorously. (Same as: NovoLOG)"single patient use only"WASTE: F/P - Black; E - Municipal Trash Bin Stable for 28 days at room temperature.Expires in days from Date Start Date: 09/07/16 Stop Date: 09/21/16 Status: Discontinuedinsulin aspart 2 unit, 0.02 mL, Route: SUB-Q, Drug form: SOLN, Sliding Scale, Dosing Weight 54.318, kg, PRN Blood Glucose Results, Start date: 09/07/16 18:47:00 SOCIAL SCIENTIST, Duration: 30 day, Stop date: 10/07/16 18:46:00 SOCIAL SCIENTIST Notes: Roll in palms of hands gently; Do not shake vigorously. (Same as: NovoLOG)"single patient use only"WASTE: F/P - Black; E - Municipal Trash Bin Stable for 28 days at room temperature.Expires in days from Date Start Date: 09/07/16 Stop Date: 09/21/16 Status: Discontinuedinsulin aspart 4 unit, 0.04 mL, Route: SUB-Q, Drug form: SOLN, Sliding Scale, Dosing Weight 54.318, kg, PRN Blood Glucose Results, Start date: 09/07/16 18:47:00 SOCIAL SCIENTIST, Duration: 30 day, Stop date: 10/07/16 18:46:00 SOCIAL SCIENTIST Notes: Roll in palms of hands gently; Do not shake vigorously. (Same as: NovoLOG)"single patient use only"WASTE: F/P - Black; E - Municipal Trash Bin Stable for 28 days at room temperature.Expires in days from Date Start Date: 09/07/16 Stop Date: 09/21/16 Status: DiscontinuedketOROLAC 15 mg, 1 mL, Route: IVP, Drug form: INJ, Q6H, Dosing Weight 54.318, kg, Start date: 08/30/16 0:00:00CST, Duration: 6 doses or times, Stop date: 08/31/16 6:00: 00 SOCIAL SCIENTIST Notes: (Same as:Toradol) IV bolus must be given >15 seconds. Give IM administration slowly and deeply into the muscle. Not for use > 4 days. Start Date: 08/30/16 Stop Date: 08/31/16 Status: CompletedketOROLAC (ANES) IV, ONCE Start Date: 08/29/16 Stop Date: 08/29/16 Status: CompletedketOROLAC 30 mg/mL injectable solution 30 mg, 1 mL, Route: IVP, Drug form: INJ, Q6H, Dosing Weight 54.318, kg, Priority : STAT, Start date: 08/31/16 12:13:00 SOCIAL SCIENTIST, Duration: 4 day, Stop date: 09/04/16 12:00:00 SOCIAL SCIENTIST Notes: (Same as:Toradol) IV bolus must be given >15 seconds. Give IM administration slowly and deeply into the muscle.Not for use > 4 days MEDICATION WASTE Product Size: 30 mgProduct Wasted: ___ mg Start Date: 08/31/16 Stop Date: 09/04/16 Status: CompletedLactated Ringers 1,000 mL 1,000 mL, Rate: 40 ml/hr, Infuse over: 25 hr, Route: IV, Dosing Weight 54.318 kg , Total Volume: 1,000, Start date: 08/29/16 14:41:00 SOCIAL SCIENTIST, Duration: 30 day, Stop date: 09/28/16 14:40:00 SOCIAL SCIENTIST Start Date: 08/29/16 Stop Date: 08/31/16 Status: DiscontinuedLactated Ringers 1,000 mL 1,000 mL, Rate: 125 ml/hr, Infuse over: 8 hr, Route: IV, Dosing Weight 54.318 kg , Total Volume: 1,000, Start date: 08/29/16 20:00:00 SOCIAL SCIENTIST, Duration: 30 day, Stop date: 09/28/16 19:59:00 SOCIAL SCIENTIST Start Date: 08/29/16 Stop Date: 08/31/16 Status: Discontinuedlactulose 10 g/15 mL oral syrup 10 gm, 15 mL, Route: PO, Drug Form: SYRP, Dosing Weight 54.318, kg, TID, PRN Bowel Movements, Start date: 08/31/16 5:23:00 SOCIAL SCIENTIST, Duration: 30 day, Stop date: 09/30/16 5:22:00 SOCIAL SCIENTIST Notes: (Same as:Chronulac) Start Date: 08/31/16 Stop Date: 09/02/16 Status: Discontinuedlidocaine (ANES) Route: IV, Drug form: INJ, ONCE, Stop date: 08/29/16 19:06:00 SOCIAL SCIENTIST Start Date: 08/29/16 Stop Date: 08/29/16 Status: CompletedLR 1000 mL INJ (ANES) Route: IV, Total Volume: 1,000, Start date: 09/06/16 19:42:00 SOCIAL SCIENTIST, Stop date: 20:42:00 SOCIAL SCIENTIST Start Date: 09/06/16 Stop Date: 09/06/16 Status: CompletedLR 1000 mL INJ (ANES) Route: IV, Total Volume: 1,000, Start date: 08/29/16 17:30:00 SOCIAL SCIENTIST, Stop date: 18:30:00 SOCIAL SCIENTIST Start Date: 08/29/16 Stop Date: 08/29/16 Status: Completedmagnesium oxide 800 mg, 2 tab, Route: PO, Drug form: TAB, PRN, Dosing Weight 54.318, kg, PRN Abnormal Lab Result, FOR ICU USE ONLY, Start date: 09/07/16 7:55:00 SOCIAL SCIENTIST, Duration: 30 day, Stop date: 10/07/16 7:54:00 SOCIAL SCIENTIST Notes: (Same as: Mag-Ox 400)Magnesium oxide [id number] elemental magnesiumDose= ____mg magnesium oxide (___mg elemental magnesium) Start Date: 09/07/16 Stop Date: 09/07/16 Status: Discontinuedmagnesium oxide 800 mg, 2 tab, Route: PO, Drug form: TAB, PRN, Dosing Weight 54.318, kg, PRN Abnormal Lab Result, FOR ICU USE ONLY, Start date: 09/07/16 10:29:00 SOCIAL SCIENTIST, Duration: 30 day, Stop date: 10/07/16 10:28:00 SOCIAL SCIENTIST Notes: (Same as: Mag-Ox 400)Magnesium oxide [id number] elemental magnesiumDose= ____mg magnesium oxide (___mg elemental magnesium) Start Date: 09/07/16 Stop Date: 09/21/16 Status: Discontinuedmagnesium sulfate 2 gm=50 mL, IVPB, PRN, PRN Abnormal Lab Result, FOR ICU USE ONLY, 0 Refill(s) Start Date: 09/21/16 Status: Orderedmagnesium sulfate 2 gm, 50 mL, Route: IVPB, Drug form: INJ, PRN, Dosing Weight 54.318, kg, PRN Abnormal Lab Result, Start date: 09/07/16 7:55:00 SOCIAL SCIENTIST, Duration: 30 day, Stop date: 10/07/16 7:54:00 SOCIAL SCIENTIST, FOR ICU USE ONLY Notes: WASTE: F/P - Sink; E - Municipal Trash Bin Start Date: 09/07/16 Stop Date: 09/07/16 Status: Discontinuedmagnesium sulfate 2 gm, 50 mL, Route: IVPB, Drug form: INJ, PRN, Dosing Weight 54.318, kg, PRN Abnormal Lab Result, Start date: 09/07/16 10:29:00 SOCIAL SCIENTIST, Duration: 30 day, Stop date: 10/07/16 10:28:00 SOCIAL SCIENTIST, FOR ICU USE ONLY Notes: WASTE: F/P - Sink; E - Municipal Trash Bin Start Date: 09/07/16 Stop Date: 09/21/16 Status: Discontinuedmagnesium sulfate 4 gm / 100 mL solution 4 gm, 100 mL, Route: IV, Drug form: INJ, ONCE, Dosing Weight 54.318, kg, Start date: 09/03/16 15:29:00 SOCIAL SCIENTIST, Stop date: 09/03/16 15:29:00 SOCIAL SCIENTIST Notes: WASTE: F/P - Sink; E - Municipal Trash Bin Start Date: 09/03/16 Stop Date: 09/03/16 Status: Completedmeropenem + sodium chloride 0.9% INJ 100 mL 500 mg, Route: IVPB, ABXQ6H, Dosing Weight 54.318, kg, CrCL >=50ml/min, Extended infusion, infuse over 3 hours, Start date: 09/07/16 0:00:00 SOCIAL SCIENTIST, Duration: 30 day, Stop date: 10/06/16 18:00:00 SOCIAL SCIENTIST Notes: Same as Merrem MEDICATION WASTE Product Size: 500 mgProduct Wasted: ___ mg Start Date: 09/07/16 Stop Date: 09/14/16 Status: Discontinuedmeropenem + sodium chloride 0.9% INJ 100 mL 500 mg, Route: IV, ABXQ6H, Dosing Weight 54.318, kg, Start date: 09/20/16 16:00: 00 SOCIAL SCIENTIST, Duration: 30day, Stop date: 10/20/16 10:00:00 SOCIAL SCIENTIST Notes: Same as Merrem MEDICATION WASTE Product Size: 500 mgProduct Wasted: ___ mg Start Date: 09/20/16 Stop Date: 09/21/16 Status: Discontinuedmeropenem 500 mg intravenous injection 500 mg, IV, Q6H, X 10 day, # 1 box, 0 Refill(s) Start Date: 09/21/16 Stop Date: 10/01/16 Status: Orderedmidazolam 2 mg, 2 mL, Route: IVP, Drug form: INJ, Q2H, Dosing Weight 54.318, kg, PRN Agitation, Start date: 09/12/16 10:30:00 SOCIAL SCIENTIST, Duration: 30 day, Stop date: 10/12 10:29:00 SOCIAL SCIENTIST Notes: (Same as: Versed) MEDICATION WASTE Product Size: 2 mgProduct Wasted: ___ mg Start Date: 09/12/16 Stop Date: 09/21/16 Status: Discontinuedmidazolam (ANES) Route: IV, Drug form: SOLN, ONCE, Stop date: 09/06/16 23:09:00 SOCIAL SCIENTIST Start Date: 09/06/16 Stop Date: 09/06/16 Status: Completedmidazolam 1 mg/mL-NaCl 0.9% intravenous solution 2 mg=2 mL, IVP, Q2H, PRN Agitation, 0 Refill(s) Start Date: 09/21/16 Status: Orderedmidazolam 50mg/ NS 50ml drip (premixed) 50 mg 50 mg, 50 mL, Rate: Titrate, Start Dose: 1 mg/hr, Titration: Rebolus 1 mg IV and /or Titrate infusionby 1 mg/hour every 30 minutes, Goal(s): -2, Max Dose: 10 mg/ hr, Route: IV, Dosing Weight 54.318 kg, Total Volume: 50, Start date: 09/06/16 23:21:00 CS... Notes: (Same as: Versed) Start Date: 09/06/16 Stop Date: 09/12/16 Status: DiscontinuedMiraLax 17 gm, 1 pkt, Route: PO, Drug form: PWDR, Q12H, Dosing Weight 54.318, kg, Start date: 09/12/16 10:13:00 SOCIAL SCIENTIST, Duration: 30 day, Stop date: 10/12/16 9:00:00 SOCIAL SCIENTIST Notes: Dissolve in 8 oz of water or juice.(Same as: Miralax) Start Date: 09/12/16 Stop Date: 09/21/16 Status: DiscontinuedMiraLax 17 gm, 1 pkt, Route: PO, Drug form: PWDR, BID, Dosing Weight 54.318, kg, Start date: 08/30/16 9:00:00 SOCIAL SCIENTIST, Duration: 30 day, Stop date: 09/28/16 17:00:00 SOCIAL SCIENTIST Notes: Dissolve in 8 oz of water or juice.(Same as: Miralax) Start Date: 08/30/16 Stop Date: 09/02/16 Status: DiscontinuedMiraLax 17 gm, Route: PO, Daily, Dosing Weight 54.318, kg, Start date: 09/12/16 10:11: 00 SOCIAL SCIENTIST, Duration: 30 day, Stop date: 10/12/16 9:00:00 SOCIAL SCIENTIST Start Date: 09/12/16 Stop Date: 09/12/16 Status: DiscontinuedMiraLax 17 gm, 1 pkt, Route: NG, Drug form: PWDR, BID, Dosing Weight 54.318, kg, Start date: 09/06/16 17:27:00 SOCIAL SCIENTIST, Duration: 30 day, Stop date: 10/06/16 17:00:00 SOCIAL SCIENTIST Notes: Dissolve in 8 oz of water or juice.(Same as: Miralax) Start Date: 09/06/16 Stop Date: 09/06/16 Status: Discontinuedmorphine Sulfate 2 mg, 1 mL, Route: IVP, Drug form: INJ, Q3H, Dosing Weight 54.318, kg, PRN Pain Score 7-10, Start date: 08/28/16 23:44:00 SOCIAL SCIENTIST, Duration: 30 day, Stop date: 04/07 23:43:00 SOCIAL SCIENTIST Notes: (Same as:MORPhine Sulfate) Start Date: 08/28/16 Stop Date: 09/03/16 Status: DiscontinuedMycamine + sodium chloride 0.9% INJ 100 mL 100 mg, Route: IV, [id number], Dosing Weight 54.318, kg, Start date: 09/15/16 22:00 :00 SOCIAL SCIENTIST, Duration: 30 day, Stop date: 10/14/16 22:00:00 SOCIAL SCIENTIST Notes: Same as MycamineProtect from light MEDICATION WASTE Product Size : 100 mgProduct Wasted: ___ mg Start Date: 09/15/16 Stop Date: 09/21/16 Status: DiscontinuedMycamine 100 mg intravenous injection 100 mg, IV, Q24H, X 30 day, # 1 box, 0 Refill(s) Start Date: 09/21/16 Stop Date: 10/21/16 Status: Orderednafcillin + sodium chloride 0.9% INJ 100 mL 2 gm, Route: IVPB, Drug form: PDR/INJ, ABXQ6H, Dosing Weight 54.318, kg, Start date: 09/13/16 20:00:00 SOCIAL SCIENTIST, Duration: 30 day, Stop date: 10/13/16 14:00:00 SOCIAL SCIENTIST Start Date: 09/13/16 Stop Date: 09/21/16 Status: Discontinuednafcillin 2 g injection 2 gm, IM, Q6H, X 30 day, # 1 box, 0 Refill(s) Start Date: 09/21/16 Stop Date: 10/21/16 Status: Orderednaloxone 0.04 mg, 0.1 mL, Route: IVP, Drug form: INJ, Q2MIN, Dosing Weight 54.318, kg, PRN Narcotic Reversal,Start date: 09/03/16 11:32:00 SOCIAL SCIENTIST, Duration: 30 day, Stop date: 10/03/16 11:31:00 SOCIAL SCIENTIST Notes: Same as Narcan Start Date: 09/03/16 Stop Date: 09/06/16 Status: Discontinuedneostigmine (ANES) Route: IV, Drug form: INJ, ONCE, Stop date: 08/29/16 20:12:00 SOCIAL SCIENTIST Start Date: 08/29/16 Stop Date: 08/29/16 Status: Completednorepinephrine (ANES) (ANES) Route: IV, Drug form: INJ, Start date: 09/06/16 21:27:00 SOCIAL SCIENTIST, Stop date: 22:27:00 SOCIAL SCIENTIST Start Date: 09/06/16 Stop Date: 09/06/16 Status: Completednorepinephrine 4 mg/4 ml inj 16 mg + D5W 234 mL 16 mg, 16 mL, Rate: Titrate, Start Dose: 5 microgram/min, Titration: 2 microgram /min every 2-5 minutes, Goal(s): MAP >=65 mmHg, Max Dose: 70 microgram/min, Route: IV, Dosing Weight 54.318 kg, Total Volume: 250, Start date: 09/06/16 23: 11:00 SOCIAL SCIENTIST, Stop... Notes: (Same as:Levophed). Start Date: 09/06/16 Stop Date: 09/21/16 Status: DiscontinuedOfirmev 1,000 mg, 100 mL, Route: IV, Drug form: INJ, Q6H, Dosing Weight 54.318, kg, for > or=50 kg, Start date: 09/03/16 12:00:00 SOCIAL SCIENTIST, Duration: 1 day, Stop date: 09/04 6:00:00 SOCIAL SCIENTIST Notes: Infuse over 15 minutesDo not exceed 4gm/day of acetaminophen MEDICATION WASTE ProductSize: 1000 mgProduct Wasted: ___ mg Start Date: 09/03/16 Stop Date: 09/04/16 Status: Completedondansetron 4 mg, 2 mL, Route: IVP, Drug form: INJ, Q6H, Dosing Weight 54.318, kg, PRN Nausea & Vomiting, Start date: 08/28/16 23:44:00 SOCIAL SCIENTIST, Duration: 30 day, Stop date: 09/27/16 23:43:00 SOCIAL SCIENTIST Notes: (Same as: Richard) MEDICATION WASTE Product Size: 4 mgProduct Wasted: ___ mg Start Date: 08/28/16 Stop Date: 09/02/16 Status: Discontinuedondansetron 4 mg, 2 mL, Route: IVP, Drug form: INJ, Q6H, Dosing Weight 54.318, kg, PRN Nausea & Vomiting, Start date: 08/29/16 20:00:00 SOCIAL SCIENTIST, Duration: 30 day, Stop date: 09/28/16 19:59:00 SOCIAL SCIENTIST Notes: (Same as: Richard) MEDICATION WASTE Product Size: 4 mgProduct Wasted: ___ mg Start Date: 08/29/16 Stop Date: 09/21/16 Status: Discontinuedondansetron (ANES) Route: IV, Drug form: INJ, ONCE, Stop date: 09/20/16 15:13:00 SOCIAL SCIENTIST Start Date: 09/20/16 Stop Date: 09/20/16 Status: Completedondansetron (ANES) Route: IV, Drug form: INJ, ONCE, Stop date: 09/06/16 22:56:00 SOCIAL SCIENTIST Start Date: 09/06/16 Stop Date: 09/06/16 Status: Completedondansetron (ANES) Route: IV, Drug form: INJ, ONCE, Stop date: 08/29/16 20:12:00 SOCIAL SCIENTIST Start Date: 08/29/16 Stop Date: 08/29/16 Status: Completedpancrelipase 12,000 units-38,000 units-60,000 units oral delayed release capsule (Creon 12,000) 3 cap, NG, TID, 0 Refill(s) Start Date: 09/21/16 Status: Orderedpancrelipase 12,000 units-38,000 units-60,000 units oral delayed release capsule (Creon 12,000) 3 cap, Route: NG, Drug Form: DRC, Dosing Weight 54.318, kg, TID, Start date: 17:43:00 SOCIAL SCIENTIST, Stop date: 10/05/16 17:00:00 SOCIAL SCIENTIST Notes: Same as : Lipase 11750 Units, Protease 38,000 units, Amylase 94679 units Start Date: 09/05/16 Stop Date: 09/21/16 Status: Discontinuedpantoprazole 40 mg, Route: IV, Drug form: INJ, Q12H, Dosing Weight 54.318, kg, Start date: 10:34:00 SOCIAL SCIENTIST,Duration: 30 day, Stop date: 10/12/16 9:00:00 SOCIAL SCIENTIST Notes: (Same as: Protonix) Start Date: 09/12/16 Stop Date: 09/21/16 Status: Discontinuedpantoprazole 40 mg intravenous injection 40 mg, IV, Q12H, 0 Refill(s) Start Date: 09/21/16 Status: Orderedphenol topical 1.4% spray 1 spray, TOP, Q2H, PRN Sore Throat, 0 Refill(s) Start Date: 09/21/16 Status: Orderedphenylephrine (ANES) Route: IV, Drug form: INJ, ONCE, Stop date: 08/29/16 19:11:00 SOCIAL SCIENTIST Start Date: 08/29/16 Stop Date: 08/29/16 Status: Completedphenylephrine 10 mg/1 ml AMP INJ 50 mg + sodium chloride 0.9% INJ 250 mL 50 mg, 5 mL, Rate: Titrate, Start Dose: 35 microgram/min, Titration: 25 microgram/min every 2-5 minutes, Goal(s): MAP >=65, Max Dose: 350 microgram/min , Route: IV, Dosing Weight 54.318 kg, Total Volume: 255, Start date:09/07/16 6: 50:00 SOCIAL SCIENTIST, Duration... Notes: (Same as: Archie-Synephrine) Start Date: 09/07/16 Stop Date: 09/11/16 Status: Discontinuedpiperacillin-tazobactam (ANES) IV, ONCE Start Date: 09/06/16 Stop Date: 09/06/16 Status: Completedpolyethylene glycol 3350 PO, Q12H, 0 Refill(s) Start Date: 09/21/16 Status: Orderedpotassium chloride 20 mEq, 1 tab, Route: PO, Drug form: ERTAB, PRN, Dosing Weight 54.318, kg, PRN Abnormal Lab Result, Start date: 09/07/16 7:55:00 SOCIAL SCIENTIST, Duration: 30 day, Stop date: 10/07/16 7:54:00 SOCIAL SCIENTIST, FOR ICU USE ONLY Notes: (Same as: K-Dur 20)"Do Not Crush" With food and full glass of water Start Date: 09/07/16 Stop Date: 09/07/16 Status: Discontinuedpotassium chloride 10 mEq, 100 mL, Route: IVPB, Drug form: INJ, PRN, Dosing Weight 54.318, kg, PRN Abnormal Lab Result,Via peripheral line, Start date: 09/07/16 7:55:00 SOCIAL SCIENTIST, Duration: 30 day, Stop date: 10/07/16 7:54:00CST, FOR ICU USE ONLY Notes: Infuse at a rate of 10 mEq/hr.(Same as: KCL) Start Date: 09/07/16 Stop Date: 09/07/16 Status: Discontinuedpotassium chloride 20 mEq, 100 mL, Route: IVPB, Drug form: INJ, PRN, Dosing Weight 54.318, kg, PRN Abnormal Lab Result,Via central line, Start date: 09/07/16 7:55:00 SOCIAL SCIENTIST, Duration : 30 day, Stop date: 10/07/16 7:54:00 SOCIAL SCIENTIST, FOR ICU USE ONLY Notes: (Same as: KCL) Infuse no faster than 10 mEq/hr if given peripherally. Start Date: 09/07/16 Stop Date: 09/07/16 Status: Discontinuedpotassium chloride 20 mEq, 15 mL, Route: NJ, Drug form: LIQ, PRN, Dosing Weight 54.318, kg, PRN Abnormal Lab Result, Start date: 09/07/16 7:55:00 SOCIAL SCIENTIST, Duration: 30 day, Stop date: 10/07/16 7:54:00 SOCIAL SCIENTIST, FOR ICU USE ONLY Notes: (Same as: Potassium Chloride) Start Date: 09/07/16 Stop Date: 09/07/16 Status: Discontinuedpotassium chloride 20 mEq, 15 mL, Route: NJ, Drug form: LIQ, PRN, Dosing Weight 54.318, kg, PRN Abnormal Lab Result, Start date: 09/07/16 10:29:00 SOCIAL SCIENTIST, Duration: 30 day, Stop date: 10/07/16 10:28:00 SOCIAL SCIENTIST, FOR ICU USE ONLY Notes: (Same as: Potassium Chloride) Start Date: 09/07/16 Stop Date: 09/21/16 Status: Discontinuedpotassium chloride 20 mEq, 1 tab, Route: PO, Drug form: ERTAB, PRN, Dosing Weight 54.318, kg, PRN Abnormal Lab Result, Start date: 09/07/16 10:29:00 SOCIAL SCIENTIST, Duration: 30 day, Stop date: 10/07/16 10:28:00 SOCIAL SCIENTIST, FOR ICU USE ONLY Notes: (Same as: K-Dur 20)"Do Not Crush" With food and full glass of water Start Date: 09/07/16 Stop Date: 09/21/16 Status: Discontinuedpotassium chloride 10 mEq, 100 mL, Route: IVPB, Drug form: INJ, PRN, Dosing Weight 54.318, kg, PRN Abnormal Lab Result,Via peripheral line, Start date: 09/07/16 10:29:00 SOCIAL SCIENTIST, Duration: 30 day, Stop date: 10/07/16 10:28:00 SOCIAL SCIENTIST, FOR ICU USE ONLY Notes: Infuse at a rate of 10 mEq/hr.(Same as: KCL) Start Date: 09/07/16 Stop Date: 09/21/16 Status: Discontinuedpotassium chloride 20 mEq, 100 mL, Route: IVPB, Drug form: INJ, PRN, Dosing Weight 54.318, kg, PRN Abnormal Lab Result,Via central line, Start date: 09/07/16 10:29:00 SOCIAL SCIENTIST, Duration: 30 day, Stop date: 10/07/16 10:28:00 SOCIAL SCIENTIST, FOR ICU USE ONLY Notes: (Same as: KCL) Infuse no faster than 10 mEq/hr if given peripherally. Start Date: 09/07/16 Stop Date: 09/21/16 Status: Discontinuedpotassium phosphate + sodium chloride 0.9% INJ 250 mL 45 mmol, 15 mL, Route: IVPB, PRN, Dosing Weight 54.318, kg, PRN Abnormal Lab Result, Start date: 09/07/16 7:55:00 SOCIAL SCIENTIST, Duration: 30 day, Stop date: 10/07/16 7:54:00 SOCIAL SCIENTIST, FOR ICU USE ONLY Notes: (Same as: K Phosphate.) 1 mMol phoshate has 1.47 mEq potassium Infuse over 4 hours Start Date: 09/07/16 Stop Date: 09/07/16 Status: Discontinuedpotassium phosphate + sodium chloride 0.9% INJ 250 mL 30 mmol, 10 mL, Route: IVPB, PRN, Dosing Weight 54.318, kg, PRN Abnormal Lab Result, Start date: 09/07/16 7:55:00 SOCIAL SCIENTIST, Duration: 30 day, Stop date: 10/07/16 7:54:00 SOCIAL SCIENTIST, FOR ICU USE ONLY Notes: (Same as: K Phosphate.) 1 mMol phoshate has 1.47 mEq potassium Infuse over 4 hours Start Date: 09/07/16 Stop Date: 09/07/16 Status: Discontinuedpotassium phosphate + sodium chloride 0.9% INJ 250 mL 15 mmol, 5 mL, Route: IVPB, PRN, Dosing Weight 54.318, kg, PRN Abnormal Lab Result, Start date: 09/07/16 7:55:00 SOCIAL SCIENTIST, Duration: 30 day, Stop date: 10/07/16 7:54:00 SOCIAL SCIENTIST, FOR ICU USE ONLY Notes: (Same as: K Phosphate.) 1 mMol phoshate has 1.47 mEq potassium Infuse over 4 hours Start Date: 09/07/16 Stop Date: 09/07/16 Status: Discontinuedpotassium phosphate + sodium chloride 0.9% INJ 250 mL 15 mmol, 5 mL, Route: IVPB, PRN, Dosing Weight 54.318, kg, PRN Abnormal Lab Result, Start date: 09/07/16 10:29:00 SOCIAL SCIENTIST, Duration: 30 day, Stop date: 10:28:00 SOCIAL SCIENTIST, FOR ICU USE ONLY Notes: (Same as: K Phosphate.) 1 mMol phoshate has 1.47 mEq potassium Infuse over 4 hours Start Date: 09/07/16 Stop Date: 09/21/16 Status: Discontinuedpotassium phosphate + sodium chloride 0.9% INJ 250 mL 45 mmol, 15 mL, Route: IVPB, PRN, Dosing Weight 54.318, kg, PRN Abnormal Lab Result, Start date: 09/07/16 10:29:00 SOCIAL SCIENTIST, Duration: 30 day, Stop date: 10:28:00 SOCIAL SCIENTIST, FOR ICU USE ONLY Notes: (Same as: K Phosphate.) 1 mMol phoshate has 1.47 mEq potassium Infuse over 4 hours Start Date: 09/07/16 Stop Date: 09/21/16 Status: Discontinuedpotassium phosphate + sodium chloride 0.9% INJ 250 mL 30 mmol, 10 mL, Route: IVPB, PRN, Dosing Weight 54.318, kg, PRN Abnormal Lab Result, Start date: 09/07/16 10:29:00 SOCIAL SCIENTIST, Duration: 30 day, Stop date: 10:28:00 SOCIAL SCIENTIST, FOR ICU USE ONLY Notes: (Same as: K Phosphate.) 1 mMol phoshate has 1.47 mEq potassium Infuse over 4 hours Start Date: 09/07/16 Stop Date: 09/21/16 Status: Discontinuedpotassium phosphate-sodium phosphate 250 mg-280 mg-160 mg oral powder for reconstitution 2 pkt, Route: PO, Drug Form: PDR/REC, Dosing Weight 54.318, kg, PRN, PRN Abnormal Lab Result, FOR ICU USE ONLY, Start date: 09/07/16 7:55:00 SOCIAL SCIENTIST, Duration: 30 day, Stop date: 10/07/16 7:54:00 SOCIAL SCIENTIST Notes: (Same as: Phos-NaK) Each 1.5 gm pkt has 250mg phosphorous. Mix w/2.5oz water and stir. Start Date: 09/07/16 Stop Date: 09/07/16 Status: Discontinuedpotassium phosphate-sodium phosphate 250 mg-280 mg-160 mg oral powder for reconstitution 2 pkt, Route: PO, Drug Form: PDR/REC, Dosing Weight 54.318, kg, PRN, PRN Abnormal Lab Result, FOR ICU USE ONLY, Start date: 09/07/16 10:29:00 SOCIAL SCIENTIST, Duration: 30 day, Stop date: 10/07/16 10:28:00 SOCIAL SCIENTIST Notes: (Same as: Phos-NaK) Each 1.5 gm pkt has 250mg phosphorous. Mix w/2.5oz water and stir. Start Date: 09/07/16 Stop Date: 09/21/16 Status: Discontinuedpropofol (ANES) Route: IV, Drug form: INJ, ONCE, Stop date: 08/29/16 19:06:00 SOCIAL SCIENTIST Start Date: 08/29/16 Stop Date: 08/29/16 Status: Completedpropofol 10 mg/mL intravenous emulsion See Instructions, see instructions, # 1 bag, 0 Refill(s) Start Date: 09/21/16 Status: Orderedpropofol INJ 1,000 mg 1,000 mg, 100 mL, Rate: Titrate, Start Dose: 5 microgram/kg/min, Titration: 5 microgram/kg/min every15 min, Goal(s): RASS -1 to -2, Max Dose: 50 microgram/kg/ min, Route: IV, Dosing Weight 54.318 kg, Total Volume: 100, Start date: 11:58:00 CS... Notes: If Diprivan - change bottle & tubing every 12 hrPer state nursing law propofol can only be given by a nurse if patient is intubated or being intubated (unless the nurse is a DIRECTOR OF RETENTION). Same as:Diprivan Start Date: 09/12/16 Stop Date: 09/21/16 Status: DiscontinuedPulmozyme 2.5 mg, 2.5 mL, Route: NEB, Drug form: TERI RDaily, Dosing Weight 54.318, kg, Start date: 08/29/16 8:00:00 SOCIAL SCIENTIST, Duration: 30 day, Stop date: 09/27/16 8:00:00 SOCIAL SCIENTIST Notes: (Same as: Pulmozyme) Keep refrigerated. Protect from light. Do not dilute or mix w/other agents Start Date: 08/29/16 Stop Date: 09/20/16 Status: DiscontinuedPulmozyme 2.5 mg, 2.5 mL, Route: NEB, Drug form: SOLN, RBID, Dosing Weight 54.318, kg, Start date: 09/21/16 20:00:00 SOCIAL SCIENTIST, Duration: 30 day, Stop date: 10/21/16 8:00: 00 SOCIAL SCIENTIST Notes: (Same as: Pulmozyme) Keep refrigerated. Protect from light. Do not dilute or mix w/other agents Start Date: 09/21/16 Stop Date: 09/21/16 Status: CanceledPulmozyme 2.5 mg, 2.5 mL, Route: NEB, Drug form: SOLN, RQ12H, Dosing Weight 54.318, kg, Start date: 09/20/16 13:13:00 SOCIAL SCIENTIST, Duration: 30 day, Stop date: 10/20/16 4:00: 00 SOCIAL SCIENTIST Notes: (Same as: Pulmozyme) Start Date: 09/20/16 Stop Date: 09/21/16 Status: DiscontinuedPulmozyme 2.5 mg/2.5 mL inhalation solution 2.5 mg=2.5 ml, NEB, Daily, # 30 ea, 0 Refill(s) Start Date: 08/28/16 Status: OrderedQUEtiapine 25 mg oral tablet 50 mg=2 tab, PO, Q12H, 0 Refill(s) Start Date: 09/21/16 Status: OrderedReglan 10 mg, 2 mL, Route: IVP, Drug form: INJ, Q8H, Dosing Weight 54.318, kg, Start date: 09/03/16 0:00:00CST, Duration: 3 day, Stop date: 09/05/16 16:00:00 SOCIAL SCIENTIST Notes: (Same as: Reglan) Start Date: 09/03/16 Stop Date: 09/03/16 Status: DiscontinuedReglan 10 mg, 2 mL, Route: IVP, Drug form: INJ, Q8H, Dosing Weight 54.318, kg, Start date: 09/05/16 1:00:00CST, Stop date: 09/08/16 9:00:00 SOCIAL SCIENTIST Notes: (Same as: Reglan) Start Date: 09/05/16 Stop Date: 09/08/16 Status: CompletedReglan 10 mg, 2 mL, Route: IVP, Drug form: INJ, Q8H, Dosing Weight 54.318, kg, Start date: 09/03/16 16:00:00 SOCIAL SCIENTIST, Duration: 5 day, Stop date: 09/08/16 9:00:00 SOCIAL SCIENTIST Notes: (Same as: Reglan) Start Date: 09/03/16 Stop Date: 09/05/16 Status: Discontinuedrocuronium (ANES) Route: IV, Drug form: INJ, ONCE, Stop date: 08/29/16 19:06:00 SOCIAL SCIENTIST Start Date: 08/29/16 Stop Date: 08/29/16 Status: Completedrocuronium (ANES) Route: IV, Drug form: INJ, ONCE, Stop date: 09/20/16 15:03:00 SOCIAL SCIENTIST Start Date: 09/20/16 Stop Date: 09/20/16 Status: Completedrocuronium (ANES) Route: IV, Drug form: INJ, ONCE, Stop date: 09/06/16 20:31:00 SOCIAL SCIENTIST Start Date: 09/06/16 Stop Date: 09/06/16 Status: CompletedSaline Flush 0.9% 10 ml, Route: IVP, Drug Form: INJ, Dosing Weight 54.318, kg, PRN, PRN Line Flush , Start date: 08/28/16 23:44:00 SOCIAL SCIENTIST, Duration: 30 day, Stop date: 09/27/16 23:43 :00 SOCIAL SCIENTIST Notes: (Same as: BD Posiflush) Start Date: 08/28/16 Stop Date: 09/06/16 Status: DiscontinuedSaline Flush 0.9% 10 ml, Route: IVP, Drug Form: INJ, Dosing Weight 54.318, kg, PRN, PRN Line Flush , Start date: 09/04/16 10:28:00 SOCIAL SCIENTIST, Duration: 30 day, Stop date: 10/04/16 10:27 :00 SOCIAL SCIENTIST Notes: (Same as: BD Posiflush) Start Date: 09/04/16 Stop Date: 09/21/16 Status: DiscontinuedSaline Flush 0.9% 10 ml, Route: IVP, Drug Form: INJ, Dosing Weight 54.318, kg, PRN, PRN Line Flush , Start date: 09/04/16 10:32:00 SOCIAL SCIENTIST, Duration: 30 day, Stop date: 10/04/16 10:31 :00 SOCIAL SCIENTIST Notes: (Same as: BD Posiflush) Start Date: 09/04/16 Stop Date: 09/21/16 Status: DiscontinuedSEROquel 50 mg, 2 tab, Route: PO, Drug form: TAB, Q12H, Dosing Weight 54.318, kg, Start date: 09/11/16 21:00:00 SOCIAL SCIENTIST, Stop date: 10/11/16 9:00:00 SOCIAL SCIENTIST Notes: (Same as: SEROquel) Start Date: 09/11/16 Stop Date: 09/21/16 Status: DiscontinuedSodium Chloride 0.9% (Bolus) IV 1,000 mL, 1,000 ml/hr, Infuse Over: 1 hr, Route: IV, 1,000, Drug form: INJ, ONCE , Priority: STAT, Dosing Weight 54.318 kg, Start date: 09/07/16 3:32:00 SOCIAL SCIENTIST, Duration: 1 doses or times, Stop date: 09/07/16 3:32:00 SOCIAL SCIENTIST Start Date: 09/07/16 Stop Date: 09/07/16 Status: CompletedSodium Chloride 0.9% (Bolus) IV 1,000 mL, 1,000 ml/hr, Infuse Over: 1 hr, Route: IV, 1,000, Drug form: INJ, ONCE , Priority: STAT, Dosing Weight 54.318 kg, Start date: 09/07/16 3:55:00 SOCIAL SCIENTIST, Duration: 1 doses or times, Stop date: 09/07/16 3:55:00 SOCIAL SCIENTIST Start Date: 09/07/16 Stop Date: 09/07/16 Status: Completedsodium chloride 0.9% 1000 ml INJ (ANES) Route: IV, Total Volume: 1,000, Start date: 09/20/16 14:24:00 SOCIAL SCIENTIST, Stop date: 15:24:00 SOCIAL SCIENTIST Start Date: 09/20/16 Stop Date: 09/20/16 Status: Completedsodium chloride 0.9% 1000 ml INJ 1,000 mL 1,000 mL, Rate: 50 ml/hr, Infuse over: 20 hr, Route: IV, Dosing Weight 54.318 kg , Total Volume: 1,000, Start date: 08/28/16 23:44:00 SOCIAL SCIENTIST, Stop date: 09/27/16 23 :43:00 SOCIAL SCIENTIST Start Date: 08/28/16 Stop Date: 09/04/16 Status: Discontinuedsodium chloride 0.9% 1000 ml INJ 1,000 mL 1,000 mL, Rate: 75 ml/hr, Infuse over: 13.3 hr, Route: IV, Dosing Weight 54.318 kg, Total Volume: 1,000, Start date: 09/07/16 3:33:00 SOCIAL SCIENTIST, Duration: 30 day, Stop date: 10/07/16 3:32:00 SOCIAL SCIENTIST Start Date: 09/07/16 Stop Date: 09/07/16 Status: DiscontinuedSodium Chloride 3% inhalation solution 4 mL, Route: NEB, Drug Form: SOLN, Dosing Weight 54.318, kg, RQ6H, Start date: 09/13/16 20:00:00 SOCIAL SCIENTIST, Duration: 30 day, Stop date: 10/13/16 14:00:00 SOCIAL SCIENTIST Notes: SEE RT DOCUMENTATION (Same as: Hypertonic Saline 3%, Inhalation) Start Date: 09/13/16 Stop Date: 09/21/16 Status: DiscontinuedSodium Chloride 3% inhalation solution 4 mL, Route: NEB, Drug Form: SOLN, Dosing Weight 54.318, kg, RBID, Start date: 08/29/16 8:00:00 SOCIAL SCIENTIST,Duration: 30 day, Stop date: 09/27/16 20:00:00 SOCIAL SCIENTIST Notes: SEE RT DOCUMENTATION (Same as: Hypertonic Saline 3%, Inhalation) Start Date: 08/29/16 Stop Date: 09/13/16 Status: Discontinuedsodium chloride 7% inhalation solution 4 mL, Route: NEB, Drug Form: AERO, Dosing Weight 54.318, kg, RBID, Start date: 08/29/16 8:00:00 SOCIAL SCIENTIST,Duration: 30 day, Stop date: 09/27/16 20:00:00 SOCIAL SCIENTIST Start Date: 08/29/16 Stop Date: 08/29/16 Status: Canceledsodium phosphate + D5W 250 mL 15 mmol, 5 mL, Route: IVPB, PRN, Dosing Weight 54.318, kg, PRN Abnormal Lab Result, Start date: 09/07/16 7:55:00 SOCIAL SCIENTIST, Duration: 30 day, Stop date: 10/07/16 7:54:00 SOCIAL SCIENTIST, FOR ICU USE ONLY Start Date: 09/07/16 Stop Date: 09/07/16 Status: Discontinuedsodium phosphate + D5W 250 mL 45 mmol, 15 mL, Route: IVPB, PRN, Dosing Weight 54.318, kg, PRN Abnormal Lab Result, Start date: 09/07/16 7:55:00 SOCIAL SCIENTIST, Duration: 30 day, Stop date: 10/07/16 7:54:00 SOCIAL SCIENTIST, FOR ICU USE ONLY Start Date: 09/07/16 Stop Date: 09/07/16 Status: Discontinuedsodium phosphate + D5W 250 mL 30 mmol, 10 mL, Route: IVPB, PRN, Dosing Weight 54.318, kg, PRN Abnormal Lab Result, Start date: 09/07/16 7:55:00 SOCIAL SCIENTIST, Duration: 30 day, Stop date: 10/07/16 7:54:00 SOCIAL SCIENTIST, FOR ICU USE ONLY Start Date: 09/07/16 Stop Date: 09/07/16 Status: Discontinuedsodium phosphate + D5W 250 mL 45 mmol, 15 mL, Route: IVPB, PRN, Dosing Weight 54.318, kg, PRN Abnormal Lab Result, Start date: 09/07/16 10:29:00 SOCIAL SCIENTIST, Duration: 30 day, Stop date: 10:28:00 SOCIAL SCIENTIST, FOR ICU USE ONLY Start Date: 09/07/16 Stop Date: 09/21/16 Status: Discontinuedsodium phosphate + D5W 250 mL 30 mmol, 10 mL, Route: IVPB, PRN, Dosing Weight 54.318, kg, PRN Abnormal Lab Result, Start date: 09/07/16 10:29:00 SOCIAL SCIENTIST, Duration: 30 day, Stop date: 10:28:00 SOCIAL SCIENTIST, FOR ICU USE ONLY Start Date: 09/07/16 Stop Date: 09/21/16 Status: Discontinuedsodium phosphate + D5W 250 mL 15 mmol, 5 mL, Route: IVPB, PRN, Dosing Weight 54.318, kg, PRN Abnormal Lab Result, Start date: 09/07/16 10:29:00 SOCIAL SCIENTIST, Duration: 30 day, Stop date: 10:28:00 SOCIAL SCIENTIST, FOR ICU USE ONLY Start Date: 09/07/16 Stop Date: 09/21/16 Status: Discontinuedsterile water 5 mL, Route: MISC, Drug Form: INJ, Daily, Start date: 09/11/16 17:44:00 SOCIAL SCIENTIST, Duration: 30 day, Stop date: 10/11/16 9:00:00 SOCIAL SCIENTIST Notes: For reconstitution of drugs only Start Date: 09/11/16 Stop Date: 09/21/16 Status: Discontinuedtobramycin 70 mg, 1.75 mL, Route: INHALER, Drug form: SOLN, RQ12H, Dosing Weight 54.318, kg , Start date: 08/28/16 23:53:00 SOCIAL SCIENTIST, Duration: 30 day, Stop date: 09/27/16 16:00 :00 SOCIAL SCIENTIST Notes: TIME CRITICAL MEDICATION(Same As: Nebcin)FOR NEB USE ONLY Start Date: 08/28/16 Stop Date: 08/29/16 Status: Discontinuedtobramycin 70 mg, 1.75 mL, Route: INHALER, Drug form: SOLN, RBID, Dosing Weight 54.318, kg , Start date: 08/29/16 20:00:00 SOCIAL SCIENTIST, Duration: 30 day, Stop date: 09/28/16 8:00: 00 SOCIAL SCIENTIST Notes: TIME CRITICAL MEDICATION(Same As: Nebcin)FOR NEB USE ONLY Start Date: 08/29/16 Stop Date: 09/14/16 Status: Discontinuedtobramycin 70 mg, INHALER, Q12H, 0 Refill(s) Start Date: 08/28/16 Status: OrderedTPN, adult solution 1,058 mL 1,058 mL, Rate: 42 ml/hr, Infuse over: 25.2 hr, Route: IV, Dosing Weight 54.318 kg, Total Volume: 1,058, Start date: 09/11/16 22:00:00 SOCIAL SCIENTIST, Stop date: 09/13/16 21:59:00 SOCIAL SCIENTIST Start Date: 09/11/16 Stop Date: 09/13/16 Status: CompletedTPN, adult solution 1,490 mL 1,490 mL, Rate: 60 ml/hr, Infuse over: 24.8 hr, Route: IV, Dosing Weight 54.318 kg, Total Volume: 1,490, Start date: 09/09/16 22:00:00 SOCIAL SCIENTIST, Duration: 24 hr, Stop date: 09/10/16 21:59:00 SOCIAL SCIENTIST Start Date: 09/09/16 Stop Date: 09/10/16 Status: CompletedTPN, adult solution 1,490 mL 1,490 mL, Rate: 60 ml/hr, Infuse over: 24.8 hr, Route: IV, Dosing Weight 54.318 kg, Total Volume: 1,490, Start date: 09/10/16 22:00:00 SOCIAL SCIENTIST, Duration: 24 hr, Stop date: 09/11/16 21:59:00 SOCIAL SCIENTIST Start Date: 09/10/16 Stop Date: 09/11/16 Status: CompletedTPN, adult solution 1,490 mL 1,490 mL, Rate: 60 ml/hr, Infuse over: 24.8 hr, Route: IV, Dosing Weight 54.318 kg, Total Volume: 1,490, Start date: 09/08/16 22:00:00 SOCIAL SCIENTIST, Duration: 1 day, Stop date: 09/09/16 21:59:00 SOCIAL SCIENTIST Start Date: 09/08/16 Stop Date: 09/09/16 Status: CompletedTPN, adult solution 1490 mL 1,490 mL, Rate: 60 ml/hr, Infuse over: 24.8 hr, Route: IV, Dosing Weight 54.318 kg, Total Volume: 1,490, Start date: 09/05/16 22:00:00 SOCIAL SCIENTIST, Duration: 1 day, Stop date: 09/09/16 16:06:00 SOCIAL SCIENTIST Start Date: 09/05/16 Stop Date: 09/08/16 Status: DiscontinuedVANCO trough 30 minutes before AM dose VANCO trough 30 minutes before AM dose, once, Drug form: MISC, Route: N/A, ONCE , 09/11/16 5:30:00 SOCIAL SCIENTIST, Stop date: 09/11/16 5:30:00 SOCIAL SCIENTIST Start Date: 09/11/16 Stop Date: 09/11/16 Status: Completedvancomycin + sodium chloride 0.9% 250 mL INJ (for IV set) 250 mL 750 mg, Route: IVPB, ABXQ6H, Dosing Weight 54.318, kg, Start date: 09/06/16 23: 00:00 SOCIAL SCIENTIST, Stop date:10/06/16 12:00:00 SOCIAL SCIENTIST Notes: TIME CRITICAL MEDICATION(Same As: Vancocin)Infusion rate< 1000 mg: infuse over 1 [id number] - 1500 mg: infuse over 1.5 [id number] - 2000 mg: infuse over 2 hours> 2001 mg: infuse over 2.5 hours MEDICATION WASTE Product Size: 1000 mgProduct Wasted: ___ mg Start Date: 09/06/16 Stop Date: 09/11/16 Status: Discontinuedvasopressin 20 unit/1 ml INJ 40 unit + sodium chloride 0.9% INJ 98 mL 40 unit, 2 mL, Rate: As Directed, Start Dose: 0.04 unit/min, Titration: DO NOT TITRATE, Goal(s): MAP>=65 mmHg, Max Dose: 0.04 unit/min, Route: IV, Dosing Weight 54.318 kg, Total Volume: 100 For Sepsis,Start date: 09/07/16 3:54:00 SOCIAL SCIENTIST , Duration: 30... Notes: (Same As: Pitressin, Vasostrict) Start Date: 09/07/16 Stop Date: 09/11/16 Status: DiscontinuedZerbaxa 1.5 gm, Route: IVPB, ABXQ8H, Dosing Weight 54.318, kg, CrCl > 50 ml/min, Start date: 09/14/16 12:00:00 SOCIAL SCIENTIST, Duration: 30 day, Stop date: 10/14/16 4:00:00 SOCIAL SCIENTIST Start Date: 09/14/16 Stop Date: 09/14/16 Status: DeletedZosyn + sodium chloride 0.9% INJ 100 mL 3.375 gm, Route: IVPB, ABXQ6H, Dosing Weight 54.318, kg, Start date: 09/05/16 17 :00:00 SOCIAL SCIENTIST, Duration: 30 day, Stop date: 10/05/16 11:00:00 SOCIAL SCIENTIST Notes: (Same as: Zosyn)Dosing based on Piperacillin component MEDICATION WASTE Product Size: 3375 mgProduct Wasted: ___ mg Start Date: 09/05/16 Stop Date: 09/06/16 Status: DiscontinuedZosyn + sodium chloride 0.9% INJ 100 mL 3.375 gm, Stop date: 09/04/16 20:00:00 SOCIAL SCIENTIST Notes: (Same as: Zosyn)Dosing based on Piperacillin component MEDICATION WASTE Product Size: 3375 mgProduct Wasted: ___ mg Start Date: 09/04/16 Stop Date: 09/04/16 Status: Completed Results BLOOD BANK RESULTS Most recent to oldest [Reference Range]: 1 2 3 ABO/Rh B POS *Unknown* (09/19/16 8:54 AM) Antibody Scrn Negative (09/19/16 8:54 AM) RBC product Product available (09/19/16 8:54 AM) ELECTROLYTES Most recent to oldest 1 2 3 [Reference Range]: Sodium Lvl [135-145 mEq/L] 138 mEq/L 136 mEq/L 137 mEq/L (09/20/16 5:35 AM) (09/19/16 5:53 AM) (09/18/16 5:10 AM) Potassium Lvl [3.5-5.1 4.0 mEq/L 3.9 mEq/L 3.3 mEq/L mEq/L] (09/20/16 5:35 AM) (09/19/16 10:21 PM) *LOW* (09/19/16 2:55 PM) Chloride Lvl [95-109 mEq/L] 96 mEq/L 88 mEq/L 91 mEq/L (09/20/16 5:35 AM) *LOW* *LOW* (09/19/16 5:53 AM) (09/18/16 5:10 AM) CO2 [24-32 mEq/L] 42 mEq/L 1 >45 mEq/L 2 >45 mEq/L 3 *CRIT* *CRIT* *CRIT* (09/20/16 5:35 AM) (09/19/16 5:53 AM) (09/18/16 5:10 AM) AGAP [10.0-20.0 mEq/L] 4.0 mEq/L 5.0 mEq/L 3.1 mEq/L *LOW* *LOW* *LOW* (09/20/16 5:35 AM) (09/17/16 5:13 AM) (09/16/16 5:54 AM) 1Result Comment: Critical Result(s) called to Evelio_ at 09/20/2016 06:25_ by_ nm. Read back OK.2Result Comment: Critical Result(s) called to flavia Shabazz at 06:43 by gp. Read back OK.3Result Comment: Critical Result(s) called to isidro padgett at 09/18/2016 06:35 by gp. Read back OK.CHEM PANEL Most recent to oldest 1 2 3 [Reference Range]: Creatinine Lvl [0.50-1.40 0.38 mg/dL 0.38 mg/dL 0.36 mg/dL mg/dL] *LOW* *LOW* *LOW* (09/20/16 5:35 AM) (09/19/16 5:53 AM) (09/18/16 5:10 AM) eGFR 173 mL/min/1.73m2 1 172 mL/min/1.73m2 2 176 mL/min/1.73m2 3 *NA* *NA* *NA* (09/20/16 5:35 AM) (09/19/16 5:53 AM) (09/18/16 5:10 AM) BUN [7-22 mg/dL] 9 mg/dL 8 mg/dL 9 mg/dL (09/20/16 5:35 AM) (09/19/16 5:53 AM) (09/18/16 5:10 AM) B/C Ratio [6-25] 24 21 25 (09/20/16 5:35 AM) (09/19/16 5:53 AM) (09/18/16 5:10 AM) Glucose Lvl [70-99 mg/dL] 79 mg/dL 117 mg/dL 116 mg/dL (09/20/16 5:35 AM) *HI* *HI* (09/19/16 5:53 AM) (09/18/16 5:10 AM) Total Protein [6.4-8.4 7.2 g/dL 7.0 g/dL 6.5 g/dL g/dL] (09/20/16 5:35 AM) (09/19/16 5:53 AM) (09/18/16 5:10 AM) Albumin Lvl [3.5-5.0 g/dL] 1.3 g/dL 1.3 g/dL 1.3 g/dL *LOW* *LOW* *LOW* (09/20/16 5:35 AM) (09/19/16 5:53 AM) (09/18/16 5:10 AM) Globulin [2.7-4.2 g/dL] 5.9 g/dL 5.7 g/dL 5.2 g/dL *HI* *HI* *HI* (09/20/16 5:35 AM) (09/19/16 5:53 AM) (09/18/16 5:10 AM) A/G Ratio [0.7-1.6] 0.2 0.2 0.2 *LOW* *LOW* *LOW* (09/20/16 5:35 AM) (09/19/16 5:53 AM) (09/18/16 5:10 AM) Calcium Lvl [8.5-10.5 7.4 mg/dL 7.3 mg/dL 7.1 mg/dL mg/dL] *LOW* *LOW* *LOW* (09/20/16 5:35 AM) (09/19/16 5:53 AM) (09/18/16 5:10 AM) Phosphorus [2.5-4.5 mg/dL] 3.3 mg/dL 2.9 mg/dL 2.5 mg/dL (09/19/16 2:55 PM) (09/15/16 5:14 AM) (09/14/16 4:04 AM) Magnesium Lvl [1.8-2.4 2.0 mg/dL 2.6 mg/dL 1.8 mg/dL mg/dL] (09/20/16 5:35 AM) *HI* (09/19/16 2:55 PM) (09/19/16 10:21 PM) ALT [0-65 unit/L] 10 unit/L 9 unit/L 9 unit/L (09/20/16 5:35 AM) (09/19/16 5:53 AM) (09/18/16 5:10 AM) AST [0-37 unit/L] 22 unit/L 20 unit/L 19 unit/L (09/20/16 5:35 AM) (09/19/16 5:53 AM) (09/18/16 5:10 AM) Alk Phos [39-136 unit/L] 214 unit/L 140 unit/L 121 unit/L *HI* *HI* (09/18/16 5:10 AM) (09/20/16 5:35 AM) (09/19/16 5:53 AM) Bili Total [0.2-1.3 mg/dL] 0.4 mg/dL 0.3 mg/dL 0.3 mg/dL (09/20/16 5:35 AM) (09/19/16 5:53 AM) (09/18/16 5:10 AM) Bili Direct [0.0-0.3 mg/dL] 0.2 mg/dL (09/06/16 3:25 AM) Lactic Acid Lvl [0.5-2.2 1.6 mMol/L mMol/L] (09/06/16 3:18 PM) 1Result Comment: The eGFR is calculated using the CKD-EPI formula. In most young , healthy individualsthe eGFR will be >90 mL/min/1.73m2. The eGFR declines with age. An eGFR of 60-89 may be normal in some populations, particularly the elderly, for whom the CKD-EPI formula has not been extensively validated. Use of the eGFR is not recommended in the following populations: Individuals with unstable creatinine concentrations, including patients and those with serious co-morbid conditions. Patients with extremes in muscle mass or diet. The data above are obtained from the National Kid[employer] Education Program ( [employer]) which additionally recommends that when the eGFR is used in patients with extremes of body mass index for purposesof drug dosing, the eGFR should be multiplied by the estimated BMI.2Result Comment: The eGFR is calculated using the CKD-EPI formula. In most young, healthy individualsthe eGFR will be >90 mL/ min/1.73m2. The eGFR declines with age. An eGFR of 60-89 may be normal in some populations, particularly the elderly, for whom the CKD-EPI formula has not been extensively validated. Use of the eGFR is not recommended in the following populations: Individuals with unstable creatinine concentrations, including patients and those with serious co-morbid conditions. Patients with extremes in muscle mass or diet. The data above are obtained from the National Kid[employer] Education Program ( [employer]) which additionally recommends that when the eGFR is used in patients with extremes of body mass index for purposesof drug dosing, the eGFR should be multiplied by the estimated BMI.3Result Comment: The eGFR is calculated using the CKD-EPI formula. In most young, healthy individualsthe eGFR will be >90 mL/ min/1.73m2. The eGFR declines with age. An eGFR of 60-89 may be normal in some populations, particularly the elderly, for whom the CKD-EPI formula has not been extensively validated. Use of the eGFR is not recommended in the following populations: Individuals with unstable creatinine concentrations, including patients and those with serious co-morbid conditions. Patients with extremes in muscle mass or diet. The data above are obtained from the National Kid[employer] Disease Education Program ( [employer]) which additionally recommends that when the eGFR is used in patients with extremes of body mass index for purposesof drug dosing, the eGFR should be multiplied by the estimated BMI.LIPIDS Most recent to oldest [Reference Range]: 1 2 3 Trig [<=149 mg/dL] 61 mg/dL (09/06/16 3:25 AM) PARATHYROID PROFILE Most recent to oldest 1 2 3 [Reference Range]: Ca Ion WB [1.05-1.25 mMol/L] 1.02 mMol/L 0.95 mMol/L 0.96 mMol/L *LOW* *LOW* *LOW* (09/15/16 5:14 AM) (09/07/16 9:46 PM) (09/07/16 11:24 AM) Ca Norm WB [1.05-1.25 1.01 mMol/L 0.95 mMol/L 0.90 mMol/L 1 mMol/L] *LOW* *LOW* *CRIT* (09/15/16 5:14 AM) (09/07/16 9:46 PM) (09/07/16 11:24 AM) 1Result Comment: Critical Result(s) called to Jen at 09/07/2016 11:59 bynm. Read back OK.TOXICOLOGY Most recent to oldest 1 2 3 [Reference Range]: Vanco Tr TND 05:30 1700 1100 *NA* *NA* *NA* (09/11/16 4:54 AM) (09/09/16 5:06 PM) (09/08/16 10:46 AM) Vanco Tr 13.0 ug/ml 13.8 ug/ml 4.2 ug/ml *NA* *NA* *NA* (09/11/16 4:54 AM) (09/09/16 5:06 PM) (09/08/16 10:46 AM) IMMUNOLOGY Most recent to oldest [Reference Range]: 1 2 3 Prealbumin [18.0-45.0 mg/dL] <3.0 mg/dL *LOW* (09/06/16 3:25 AM) HEMATOLOGY Most recent to oldest 1 2 3 [Reference Range]: WBC [3.7-10.4 K/CMM] 14.5 K/CMM 13.8 K/CMM 15.2 K/CMM *HI* *HI* *HI* (09/20/16 5:35 AM) (09/19/16 5:53 AM) (09/18/16 10:00 AM) RBC [4.70-6.10 M/CMM] 2.88 M/CMM 2.61 M/CMM 2.67 M/CMM *LOW* *LOW* *LOW* (09/20/16 5:35 AM) (09/19/16 5:53 AM) (09/18/16 10:00 AM) Hgb [14.0-18.0 g/dL] 7.7 g/dL 6.8 g/dL 1 7.1 g/dL *LOW* *CRIT* *LOW* (09/20/16 5:35 AM) (09/19/16 5:53 AM) (09/18/16 10:00 AM) Hct [42.0-54.0 %] 23.4 % 20.9 % 21.7 % *LOW* *LOW* *LOW* (09/20/16 5:35 AM) (09/19/16 5:53 AM) (09/18/16 10:00 AM) MCV [80.0-94.0 fL] 81.2 fL 79.9 fL 81.0 fL (09/20/16 5:35 AM) *LOW* (09/18/16 10:00 AM) (09/19/16 5:53 AM) MCH [27.0-31.0 pg] 26.8 pg 26.2 pg 26.4 pg *LOW* *LOW* *LOW* (09/20/16 5:35 AM) (09/19/16 5:53 AM) (09/18/16 10:00 AM) MCHC [32.0-36.0 g/dL] 33.0 g/dL 32.8 g/dL 32.6 g/dL (09/20/16 5:35 AM) (09/19/16 5:53 AM) (09/18/16 10:00 AM) RDW [11.5-14.5 %] 16.1 % 16.2 % 16.5 % *HI* *HI* *HI* (09/20/16 5:35 AM) (09/19/16 5:53 AM) (09/18/16 10:00 AM) Platelet [133-450 K/CMM] 548 K/CMM 634 K/CMM 619 K/CMM *HI* *HI* *HI* (11/29/16 5:35 AM) (09/19/16 5:53 AM) (09/18/16 10:00 AM) MPV [7.4-10.4 fL] 7.7 fL 8.0 fL 7.3 fL (09/20/16 5:35 AM) (09/19/16 5:53 AM) *LOW* (09/18/16 10:00 AM) Segs [45.0-75.0 %] 80.9 % 72.2 % 80.1 % *HI* (09/19/16 5:53 AM) *HI* (09/20/16 5:35 AM) (09/18/16 10:00 AM) Bands [0.0-11.0 %] 38.0 % 48.0 % *HI* *HI* (09/06/16 3:25 AM) (09/04/16 10:20 AM) Lymphocytes [20.0-40.0 %] 5.9 % 9.2 % 4.8 % *LOW* *LOW* *LOW* (09/20/16 5:35 AM) (09/19/16 5:53 AM) (09/18/16 10:00 AM) Atypical Lymphs [<=0.0 %] 0.0 % 0.0 % (09/06/16 3:25 AM) (09/04/16 10:20 AM) Monocytes [2.0-12.0 %] 11.7 % 17.4 % 14.4 % (09/20/16 5:35 AM) *HI* *HI* (09/19/16 5:53 AM) (09/18/16 10:00 AM) Eosinophils [0.0-4.0 %] 1.0 % 0.7 % 0.4 % (09/20/16 5:35 AM) (09/19/16 5:53 AM) (09/18/16 10:00 AM) Basophils [0.0-1.0 %] 0.5 % 0.5 % 0.3 % (09/20/16 5:35 AM) (09/19/16 5:53 AM) (09/18/16 10:00 AM) Metamyelocytes [0.0-1.0 %] 4.0 % 15.0 % *HI* *HI* (09/06/16 3:25 AM) (09/04/16 10:20 AM) Segs-Bands # [1.5-8.1 11.7 K/CMM 10.0 K/CMM 12.2 K/CMM K/CMM] *HI* *HI* *HI* (09/20/16 5:35 AM) (09/19/16 5:53 AM) (09/18/16 10:00 AM) Lymphocytes # [1.0-5.5 0.9 K/CMM 1.3 K/CMM 0.7 K/CMM K/CMM] *LOW* (09/19/16 5:53 AM) *LOW* (09/20/16 5:35 AM) (09/18/16 10:00 AM) Monocytes # [0.0-0.8 K/CMM] 1.7 K/CMM 2.4 K/CMM 2.2 K/CMM *HI* *HI* *HI* (09/20/16 5:35 AM) (09/19/16 5:53 AM) (09/18/16 10:00 AM) Eosinophils # [0.0-0.5 0.1 K/CMM 0.1 K/CMM 0.1 K/CMM K/CMM] (09/20/16 5:35 AM) (09/19/16 5:53 AM) (09/18/16 10:00 AM) Basophils # [0.0-0.2 K/CMM] 0.1 K/CMM 0.1 K/CMM 0.1 K/CMM (09/20/16 5:35 AM) (09/19/16 5:53 AM) (09/17/16 5:13 AM) NRBC 2 /100WB *NA* (09/04/16 10:20 AM) Tot Cell Ct 100 *NA* (09/06/16 3:25 AM) RBC Morph Normal Normal (09/06/16 3:25 AM) (09/04/16 10:20 AM) Plt Morph Normal Normal Normal (09/14/16 4:04 AM) (09/06/16 3:25 AM) (09/04/16 10:20 AM) PT [12.0-14.7 seconds] 17.9 seconds *HI* (09/20/16 5:35 AM) INR [0.85-1.17] 1.45 *HI* (09/20/16 5:35 AM) PTT [22.9-35.8 seconds] 41.5 seconds *HI* (09/20/16 5:35 AM) 1Result Comment: Critical Result(s) called to le at 09/19/2016 07:10 by tb. Read back OK. Immunizations Not Given Vaccine Date Status Refusal Reason influenza virus vaccine, inactivated1 08/31/16 Not Given Patient Refuses 1Result Comment: will take upon discharge Procedures No data available for this section Social History Social History Type Response Alcohol Type Beer. Frequency: 1-2 times per week. Smoking Status Never smoker; Exposure to Tobacco Smoke None; Cigarette Smoking Last 365 Days No; Reg Smoking Cessation Counseling No Assessment and Plan Extracted from: Title: PCCM Author: Dickson Bustamante MD Date: 09/21/16 [facility] Pulmonary/Critical Care Progress Note History of Present Illness Mr. Chatman is a 21 year old man with history of cystic fibrosis who was admitted 08/28/16 for intussusception requiring laparoscopic hemicolectomy, developed anastomotic leak requiring reexploration/il eostomy on 09/06/16. He has been intubated for hypoxic respiratory failure secondary to multiple organisms including MDR Achromobacter. Overnight events Had tracheostomy yesterday, was uneventful. Remains on mechanical ventilation. Review of systems Unable to obtain, patient currently intubated/sedated. Allergies (1) Active Reaction NKDA None Documented Vital Signs (last 24 hrs) Last Charted Temp Oral 98.9 DegF (SEP 21 04:00) Heart Rate Apical 89 bpm (SEP 21:) Resp Rate 19 BRMIN (SEP 21) SBP 106 mmHg (SEP 21) DBP L 57mmHg (SEP 21) SpO2 97 % (SEP 21) Height 165.1 cm (SEP 21:) Physical examination General: Lying in bed with head of bed at 30 degrees, in no distress, appears comfortable ENT: Aretha 8 cuffed tracheostomy tube in place Heart: Regular rate and rhythm, S1 and S2 heard Lungs: Rales heard diffusely bilaterally, normal work of breathing Abdomen: Soft, mildly distended, bowel sounds normoactive, dark thin liquid in ileostomy : Esparza catheter in place Extremities: No edema in legs, hands and feet are warm Skin: No rashes, no bruises Neurologic: Sedated, does not follow commands, pupils equally round and reactive to light I/O Intake Output Balance 09/20/2016 7a-3p 752.52 1260.00 -507.48 3p-11p 1493.68 1785.00 -291.32 11p-7a 1119.44 1080.00 39.44 Totals 3365.64 4125.00 -759.36 Labs (Last four charted values) WBC H 14.5 (SEP 20) H 13.8 (SEP 19) H 15.2 (SEP 18) H 14.8 ( SEP 17) Hgb L 7.7 (SEP 20) C 6.8 (SEP 19) L 7.1 (SEP 18) C 6.7 (SEP 17 ) Hct L 23.4 (SEP 20) L 20.9 (SEP 19) L 21.7 (SEP 18) L 20.3 ( NOV ) Plt H 548 (SEP 20) H 634 (SEP 19) H 619 (SEP 18) H 565 (SEP 17 ) Na 138 (SEP 20) 136 (SEP 19) 137 (SEP 18) 139 (SEP 17) K 4.0 (SEP 20) 3.9 (SEP 19) L 3.3 (SEP 19) 3.6 (SEP 19) CO2 C 42 (SEP 20) C >45 (SEP 19) C >45 (SEP 18) C 44 (NOV ) Cl 96 (SEP 20) L 88 (SEP 19) L 91 (SEP 18) L 94 (SEP 17) Cr L 0.38 (SEP 20) L 0.38 (SEP 19) L 0.36 (SEP 18) L 0.38 ( SEP 17) BUN 9 (SEP 20) 8 (SEP 19) 9 (SEP 18) 10 (NOV ) Glucose Random 79 (SEP 20) H 117 (SEP 19) H 116 (SEP 18) H 112 (SEP 17) Mg 2.0 (SEP 20) H 2.6 (SEP 19) 1.8 (NOV 28) 1.8 (SEP 19) Phos 3.3 (SEP 19) 2.9 (SEP 15) 2.5 (SEP 14) 2.7 (SEP 13) Ca L 7.4 (SEP 20) L 7.3 (SEP 19) L 7.1 (SEP 18) L 7.2 (SEP 17 ) PT H 17.9 (SEP 20) INR H 1.45 (SEP 20) PTT H 41.5 (SEP 20) Ventilator settings: Mode: AC-VC, Rate: 14, TV: 450, PEEP: 8, FIO2: 50%, peak pressure 25 Imaging/Studies KUB yesterday showed NG tube in proximal stomach, sideport at diaphragm Abdominal fluid culture with few Gram negative rods and yeast Impression 1. Acute hypoxemic respiratory failure on mechanical ventilation, s/p tracheostomy 2. Bacteroides bacteremia, sepsis secondary to anastomotic leak 3. Intussusception s/p hemicolectomy 4. MDR Achromobacter/Pseudomonas/MSSA pneumonia 5. Chronic pancreatic insufficiency 6. Cystic fibrosis 7. Anemia of chronic disease 8. R abdominal fluid collection - infected seroma Plan 1. On VC ventilation, try to wean to pressure support daily 2. Continue Lasix daily, intermittent Diamox for metabolic alkalosis 3. On Seroquel 50 mg q12h, fentanyl and propofol for sedation. Daily sedation holiday. 4. Tolerating tube feeds, on pancreatic enzyme replacement, stop D5NS 5. On dornase, tobramycin for CF lung maintenance, Duonebs and hypertonic saline q6h, vest CPT for secretion clearance. 6. On multiple antibiotics for MDR Achromobacter, Pseudomonas, MSSA, ID following. Abdominal fluid collection culture pending. 7. On Miralax for bowel regimen 8. Transfer request placed to [facility] center for continued care of this complicated patient Lines: RIJ central line needed for difficulty venous access, Esparza for strict I /Os Prophylaxis: DVT - resume heparin; Stress ulcer - famotidine Dickson Bustamante MD #[id number] Pulmonary/Critical Care Medicine [facility] Addendum by Dickson Bustamante MD Critical care time exclusive of on 09/21/2016 14:31 procedures was 30 minutes. Extracted from: Title: ENT Consult Note Author: Brandy Rodney MD Date: 09/19/16 Impression and Plan 21 yo M with CF, now presenting with respiratory failure and continued mechanical ventilation requirement; also recent intussusception s/p hemicolectomy with anastamotic leak - consented mother for patient's tracheotomy. Discussed risks and benefits, answered all questions. - will schedule for tracheotomy tomorrow morning - NPO at midnight - hold anticoagulation in the AM - will monitor for 4-5 days after trach in ICU Extracted from: Title: Clinical Document Author: Mike Buitrago MD PHD Date: 08/28/16 History and Physical Chief Complaint: abdominal pain HPI: Patient is a 21 yo M, h/o CF, here for abdominal pain. Patient states he was in his usual state of health until Monday when he started having abdominal pain. This grew progressively worse on and Monday, so he came to OSH. There, he had a CT scan which showed intussiception. He was transferred here for higher level care. He currently still endorses abdminal pain, but no other symptoms. ROS: 12 point ROS is negative other than that described in HPI. Past Medical History: Cystic fibrosis Past Surgical History: No qualifying data available Family History: No qualifying data available Social History: Alcohol Details: Type Beer. Frequency: 1-2 times per week. Medications: Medication List Active Medications Ordered dornase marie: 2.5 mg, 2.5 mL, NEB, Daily. influenza virus vaccine, inactivated: 0.5 mL, IM, Daily. morphine Sulfate: 2 mg, IVP, Q3H, PRN: Pain Score 7-10. ondansetron: 4 mg, IVP, Q6H, PRN: Nausea & Vomiting. sodium chloride: 10 ml, IVP, PRN, PRN: Line Flush. Sodium Chloride 0.9% IV 1000 mL: 125 ml/hr, IV, Stop: 09/27/16 23:43:00 SOCIAL SCIENTIST. tobramycin: 70 mg, INHALER, Q12H. Suspended dornase marie: 2.5 mg, 2.5 ml, NEB, Daily, 30 ea, 0 Refill(s). tobramycin: 70 mg, INHALER, Q12H, 0 Refill(s). Medications Inactivated in the Last 72 Hours No medications found. Allergies: Allergies: NKDA Physical Exam: Gen: Alert and oriented. No apparent distress. HEENT: Normocephalic and atraumatic. Pupils equal, round, and reactive to light. Extraoccular muscles grossly intact. Ears, nose and throat clear. Neck: No lymphadenopathy. No thyromegally. No bruits. Cardiac: Regular rate and rhythm. No murmurs, rubs, or gallops. Lungs: Clear to auscultation bilaterally. Back: No tenderness to palpation. No costo-vetebral angle tenderness. Abdomen: Soft. Diffusely tender. Bowel sounds appropriate. : Deferred Extremities: No cyanosis, clubbing, or edema. Pulses intact and palpable. Skin: No rashes or lesions. Neuro: Cranial nerves grossly intact. No obvious focal deficits. Labs: No qualifying data available. Studies: No qualifying data available. Assessment: Patient is a 21 yo M, h/o CF, here for abdominal pain. Found to have intussiception Plan: 1. intussiception - - pain control with morphine - zofran for nausea - NPO - IVF - surgery consult 2. CF - - home meds 3. Proph - - ambulation 4. Code - FULL
--- OUTSIDE RECORDS SUMMARY | 2018-12-25 23:16 | XMS REPORT ---
:1995 [facility] Address [address] [place] [address] Dr. Vallecillo [address] [place] [id number] Care Team Providers Name Role Phone Unavailable Unavailable Unavailable Problems This patient has no known problems. Allergies, Adverse Reactions, Alerts This patient has no known allergies or adverse reactions. Medications This patient has no known medications. Results Test Description Test Time Test Comments Text Results Atomic Results Result Comments AFB CULTURE + SMEAR 2017-01-10 19:58:00 Test Item Value Reference Range Comments CULTURE (BEAKER) (test [id number]) No acid-fast bacilli isolated in 42 days AFB SMEAR (BEAKER) (test kbxk=[id number]) No acid fast bacilli seen
[2018-12-25] MEDS ORDERED: NA CHLORIDE 0.9% 1,000 ML ONE (23:48)
[2018-12-25] MEDS ORDERED: ONDANSETRON 4 MG/2 ML VIAL ONE (23:48)
[2018-12-25 23:53] LABS: Absolute Lymphocytes (CBC) 1.1 K/uL (0.7-4.9); Absolute Monocytes 0.6 K/uL (0.1-1.3); Absolute Neutrophil 6.5 K/uL (1.8-8.0); Basophils % 0.6 % (0-1.3); Eosinophils % 0.4 % (0-4.4); Hematocrit 36.6 % (39.6-49.0); Lymphocytes % 13.6 % (15.3-44.8); MPV 7.4 fL (7.6-11.3); Monocytes % 7.6 % (3.3-12.3)
[2018-12-25] MEDS ORDERED: MORPHINE 4 MG/ML SYR ONE (23:55)
[2018-12-26] LABS: ALT/SGPT 35 U/L (12-78); AST/SGOT 28 U/L (15-37); Albumin 4.2 g/dL (3.4-5.0); Alkaline Phosphatase 98 U/L (45-117); BUN Blood Urea Nitrogen 18 mg/dL (7-18); Bicarbonate 23 mmol/L (21-32); Bilirubin Total 0.6 mg/dL (0.2-1.0); Glucose Level 113 mg/dL (74-106); Potassium 3.5 mmol/L (3.5-5.1); Protein, Total 7.6 g/dL (6.4-8.2); Sodium Level 139 mmol/L (136-145)
[2018-12-26] MEDS ORDERED: LIDOCAINE 2% MPF 5 ML VIAL ONE (00:08)
[2018-12-26] MEDS ORDERED: TETANUS & DIPHTHERIA TOX,ADULT 0.5 ML VIAL ONE (00:09)
[2018-12-26] MEDS ORDERED: ONDANSETRON 4 MG/2 ML VIAL ONE (00:46)
[2018-12-26] MEDS ORDERED: MORPHINE 2 MG/ML SYR ONE (00:46)
--- NOTE | 2018-12-26 02:28 | ER ---
Nurse's Notes [facility] Name: Benjamin Bustamante Age: 23 yrs Sex: Male : 1995 Arrival Date: 12/25/2018 Time: 23:10 Bed 4 Private MD: Diagnosis: Superficial injury of head;Laceration without foreign body of other part of head-BROW;Concussion;Concussion with loss of consciousness of 30 minutes or less;Nondisplaced fracture of head of left radius Presentation: 12/25 23:20 Acuity: ANÍBAL 2 23:20 Method Of Arrival: Ambulatory 23:20 Presenting complaint: Patient states: that he was standing on a ladder approx 6 ft off ground attempting to change light bulb. Fell off and hit head on cement. Positive LOC. Has laceration to left outer eyebrow and left arm pain. Pt hx of lung transplant. Care prior to arrival: Bleeding of injury controlled. Mechanism of Injury: Fall from ladder. Trauma event details: Injury occurred in the [facility], Injury occurred: at home. Injury occurred: December 25, 2018 Injury occurred at: 21:30. 23:20 Transition of care: patient was not received from another setting of care. Mechanism of fc Injury: resulted from a fall. Onset of symptoms was December 25, 2018 at 21:30. Risk Assessment: Do you want to hurt yourself or someone else? Patient reports no desire to harm self or others. Initial Sepsis Screen: Does the patient meet any 2 criteria? No. Patient's initial sepsis screen is negative. Does the patient have a suspected source of infection? No. Patient's initial sepsis screen is negative. Trauma Activation: Alert Physician: ED Physician; Name: Jitendra; Notified At: 23:20; Arrived At: 23:20 Physician: General Surgeon; Name: ; Notified At: 23:20; Arrived At: Physician: Radiology; Name: Shelly Bravo; Notified At: 23:20; Arrived At: 23:20 Physician: Respiratory; Name: Live; Notified At: 23:20; Arrived At: 23:25 Physician: Lab; Name: ; Notified At: 23:20; Arrived At: Historical: - Allergies: 23:39 No Known Allergies; fc - Home Meds: 23:39 Prograf Oral [Active]; Prednisone Oral [Active]; fludrocortisone 0.1 mg oral tab fc [Active]; - PMHx: 23:39 Cystic Fibrosis; fc - PSHx: 23:39 Bilateral Lung Transplant; fc - Immunization history: Last tetanus immunization: - up to date. - Social history:: Smoking status: Patient/guardian denies using tobacco, Patient/guardian denies using alcohol, street drugs. - Ebola Screening: : Patient negative for fever greater than or equal to 101.5 degrees Fahrenheit, and additional compatible Ebola Virus Disease symptoms Patient denies exposure to infectious person Patient denies travel to an Ebola-affected area in the 21 days before illness onset. - Family history:: not pertinent. Screenin:20 Abuse screen: Denies threats or abuse. Tuberculosis screening: No symptoms or risk fc factors identified. 23:36 Nutritional screening: No deficits noted. Fall Risk None identified. fc Primary Survey: 23:44 NO uncontrolled hemorrhage observed. A: The patient is alert. Airway: patent. tl2 Breathing/Chest: Respiratory pattern: regular, Respiratory effort: spontaneous, unlabored, Breath sounds: clear, bilaterally. Chest inspection: symmetrical rise and fall of the chest. Circulation: Pulses: palpable . Skin temperature: warm, dry. Disability Alert. Exposure/Environment: All clothing and personal items were removed. There is no evidence of uncontrolled external bleeding. Obvious injury(ies) are noted at this time: small laceration above left eyebrow. 03/ 01:00 Reassessment Airway Airway Breathing/Chest Respiratory pattern Regular Respiratory ea effort Spontaneous Unlabored Chest inspection Symmetrical Disability Alert. Secondary Survey: 03 23:44 HEENT: Head Other small laceration above left eyebrow. Gastrointestinal: Patient is tl2 actively vomiting. Patient reports Nausea. : No signs and/or symptoms were reported regarding the genitourinary system. Musculoskeletal: No signs and/or symptoms reported regarding the musculoskeletal system. Injury Description: Laceration sustained to outer aspect of left eyebrow and left eye was sustained 1-2 hours ago. Assessment: 23:44 General: Appears in no apparent distress. uncomfortable, Behavior is cooperative, tl2 appropriate for age, anxious. Pain: Complains of pain in outer aspect of left eyebrow and left eye. Neuro: Level of Consciousness is awake, alert, obeys commands, Oriented to person, place, time, situation. Cardiovascular: Denies chest pain. Respiratory: Airway is patent Respiratory effort is even, unlabored, Respiratory pattern is regular, symmetrical, Breath sounds are clear bilaterally. Pt reports bilateral lung transplant 9 months ago. GI: Reports nausea, vomiting. : No signs and/or symptoms were reported regarding the genitourinary system. Derm: Skin is pink, warm \T\ dry. Injury Description: Head injury sustained to outer aspect of left eyebrow and left eye is closed, had loss of consciousness, was sustained 1-2 hours ago. Laceration sustained to outer aspect of left eyebrow and left eye is clean, 0.5 to 2.5 cm long, bleeding moderately, was sustained 1-2 hours ago. 23:53 Reassessment: Patient and/or family updated on plan of care and expected duration. Pain ea level reassessed. Patient is alert, oriented x 3, equal unlabored respirations, skin warm/dry/pink. Pain is decreased. 12/26 01:00 Reassessment: Patient appears in no apparent distress at this time. Patient and/or tl2 family updated on plan of care and expected duration. Pain level reassessed. Patient is alert, oriented x 3, equal unlabored respirations, skin warm/dry/pink. Patient states feeling better. 02:13 Reassessment: Patient appears in no apparent distress at this time. Patient and/or tl2 family updated on plan of care and expected duration. Pain level reassessed. Patient is alert, oriented x 3, equal unlabored respirations, skin warm/dry/pink. preparing for splint placement. 02:45 Reassessment: Patient and/or family updated on plan of care and expected duration. Pain ea level reassessed. Patient is alert, oriented x 3, equal unlabored respirations, skin warm/dry/pink. Discharge instructions given to patient, verbalized the understanding of instruction. Patient states feeling better. Patient states symptoms have improved. Vital Signs: 12/25 23:20 BP 148 / 76; Pulse 82; Resp 20; Temp 98.0(O); Pulse Ox 100% on R/A; Weight 61.23 kg fc (R); Height 5 ft. 6 in. (167.64 cm) (R); Pain 10/10; 12/26 00:20 BP 138 / 77; Pulse 96; Resp 18; Pulse Ox 98% on R/A; tl2 02:12 BP 112 / 61; Pulse 66; Resp 18; Pulse Ox 100% on R/A; tl2 12/25 23:20 Body Mass Index 21.79 (61.23 kg, 167.64 cm) fc Cal Coma Score: 12/25 23:20 Eye Response: spontaneous(4). Verbal Response: oriented(5). Motor Response: obeys fc commands(6). Total: 15. 23:20 Eye Response: spontaneous(4). Verbal Response: oriented(5). Motor Response: obeys fc commands(6). Total: 15. 23:35 Eye Response: spontaneous(4). Verbal Response: oriented(5). Motor Response: obeys ashley commands(6). Total: 15. 12/26 00:20 Eye Response: spontaneous(4). Verbal Response: oriented(5). Motor Response: obeys tl2 commands(6). Total: 15. 02:12 Eye Response: spontaneous(4). Verbal Response: oriented(5). Motor Response: obeys ea commands(6). Total: 15. Trauma Score (Adult): 12/25 23:20 Eye Response: spontaneous(1); Verbal Response: oriented(1); Motor Response: obeys fc commands(2); Systolic BP: > 89 mm Hg(4); Respiratory Rate: 10 to 29 per min(4); Cal Score: 15; Trauma Score: 12 12/26 00:20 Eye Response: spontaneous(1); Verbal Response: oriented(1); Motor Response: obeys tl2 commands(2); Systolic BP: > 89 mm Hg(4); Respiratory Rate: 10 to 29 per min(4); Cal Score: 15; Trauma Score: 12 ED Course: 12/25 23:10 Patient arrived in ED. ag3 23:20 Patient has correct armband on for positive identification. Placed in gown. Bed in low fc position. Call light in reach. 23:20 Arm band placed on Patient placed in an exam room, on a stretcher. fc 23:20 Patient maintains SpO2 saturation greater than 95% on room air. fc 23:20 Inserted saline lock: 20 gauge in left antecubital area, using aseptic technique. Blood ea collected. 23:23 Seth Ham MD is Attending Physician. ashley 23:33 Triage completed. fc 23:50 Glo Cantrell, RYLAND is Primary Nurse. ea 23:54 Thermoregulation: warm blanket given to patient. ea 12/26 00:17 Chest Single View XRAY In Process Unspecified. EDMS 00:23 CT Head C Spine In Process Unspecified. EDMS 01:28 Assist provider with laceration repair on outer aspect of left eyebrow that was between ea 2.6 to 7.5 cm using sutures. Set up tray. Performed by Seth Ham MD Dressed with Neosporin, Patient tolerated well. 01:35 Forearm Left XRAY In Process Unspecified. EDMS 01:35 Wrist Left (3 View) XRAY In Process Unspecified. EDMS 01:35 Elbow Left 3 View XRAY In Process Unspecified. EDMS 02:28 Kalin Canales MD is Referral Physician. ashley 02:40 IV discontinued, intact, bleeding controlled, No redness/swelling at site. Pressure ea dressing applied. Administered Medications: 12/25 23:40 Drug: morphine 2 mg Route: IVP; Site: left antecubital; ea 12/26 00:00 Follow up: Response: No adverse reaction; Pain is unchanged, physician notified tl2 12/25 23:45 Drug: NS 0.9% 500 ml Route: IV; Rate: bolus; Site: left antecubital; ea 12/26 00:30 Follow up: Response: No adverse reaction; IV Status: Completed infusion; IV Intake: ea 500ml 12/25 23:45 Drug: NS 0.9% 1000 ml Route: IV; Rate: 125 ml/hr; Site: left antecubital; ea 12/26 02:30 Follow up: Response: No adverse reaction; IV Status: Completed infusion ea 12/25 23:45 Drug: Zofran 4 mg Route: IVP; Site: left antecubital; ea 12/26 01:00 Follow up: Response: No adverse reaction; Marked relief of symptoms ea 12/25 23:50 Drug: morphine 2 mg Route: IVP; Site: left antecubital; ea 12/26 00:00 Follow up: Response: No adverse reaction; Pain is unchanged, physician notified tl2 00:27 Drug: Tetanus-Diphtheria Toxoid Adult 0.5 ml {Assistant Professor Of Sociology: Saisei. Exp: ea 12/06/2020. Lot #: [id number]. } Route: IM; Site: right deltoid; 01:00 Follow up: Response: No adverse reaction tl2 00:38 Drug: morphine 2 mg Route: IVP; Site: left antecubital; tl2 01:30 Follow up: Response: No adverse reaction; Pain is decreased tl2 00:38 Drug: Zofran 4 mg Route: IVP; Site: left antecubital; tl2 01:00 Follow up: Response: No adverse reaction; Nausea is decreased tl2 00:44 Drug: Lidocaine (2 %) 5 ml {Note: medication adminsitered by provider.} Volume: 5 ml; ea Route: Infiltration; Intake: 00:30 IV: 500ml; Total: 500ml. ea 02:56 PO: 0ml; IV: 700ml (IV Fluid); Total: 1200ml. ea Outcome: 02:28 Discharge ordered by . ashley 02:54 Discharged to home via wheelchair, with family. ea 02:54 Condition: stable 02:54 Discharge instructions given to patient, family, Instructed on discharge instructions, follow up and referral plans. medication usage, Demonstrated understanding of instructions, follow-up care, medications, Prescriptions given X 3. 02:56 Patient's length of stay was not longer than 2 hours. ea 03:00 Patient left the ED. ea Signatures: Dispatcher [employer] Seth Gomes MD MD cha Chretien, Felicia, RN RN fc Knox, Taylor, RN RN tl2 Glo Cantrell RN RN ea Gomez, Alice ag3
--- NOTE | 2018-12-26 02:28 | EDPHYS ---
Physician Documentation [facility] Name: Benjamin Bustamante Age: 23 yrs Sex: Male : 1995 Arrival Date: 12/25/2018 Time: 23:10 Bed 4 Private MD: ED Physician Seth Ham HPI: 12/25 23:35 This 23 yrs old Male presents to ER via Ambulatory with complaints of Head ashley Injury-Adult, Fall Injury. 23:35 The patient or guardian reports injury, pain. The complaints affect the left eye. ashley Context of injury: The problem was sustained at home. Onset: The symptoms/episode began/occurred just prior to arrival. Associated signs and symptoms: Loss of consciousness: This patient experience a loss of consciousness, Pertinent positives: vomiting. Severity of symptoms: At their worst the symptoms were mild, moderate, in the emergency department the symptoms are unchanged. The patient has not experienced similar symptoms in the past. Historical: - Allergies: 23:39 No Known Allergies; fc - Home Meds: 23:39 Prograf Oral [Active]; Prednisone Oral [Active]; fludrocortisone 0.1 mg oral tab fc [Active]; - PMHx: 23:39 Cystic Fibrosis; fc - PSHx: 23:39 Bilateral Lung Transplant; fc - Immunization history: Last tetanus immunization: - up to date. - Social history:: Smoking status: Patient/guardian denies using tobacco, Patient/guardian denies using alcohol, street drugs. - Ebola Screening: : Patient negative for fever greater than or equal to 101.5 degrees Fahrenheit, and additional compatible Ebola Virus Disease symptoms Patient denies exposure to infectious person Patient denies travel to an Ebola-affected area in the 21 days before illness onset. - Family history:: not pertinent. ROS: 23:35 Constitutional: Negative for fever, chills, and weight loss, Eyes: Negative for injury, ashley pain, redness, and discharge, Neck: Negative for injury, pain, and swelling, Cardiovascular: Negative for chest pain, palpitations, and edema, Respiratory: Negative for shortness of breath, cough, wheezing, and pleuritic chest pain, Abdomen/GI: Negative for abdominal pain, nausea, vomiting, diarrhea, and constipation, Back: Negative for injury and pain, : Negative for injury, bleeding, discharge, and swelling, MS/Extremity: Negative for injury and deformity, Skin: Negative for injury, rash, and discoloration, Psych: Negative for depression, anxiety, suicide ideation, homicidal ideation, and hallucinations, Allergy/Immunology: Negative for hives, rash, and allergies, Endocrine: Negative for neck swelling, polydipsia, polyuria, polyphagia, and marked weight changes, Hematologic/Lymphatic: Negative for swollen nodes, abnormal bleeding, and unusual bruising. 23:35 ENT: Negative for injury or acute deformity. 23:35 Abdomen/GI: Positive for nausea and vomiting. 23:35 Neuro: Positive for loss of consciousness. Exam: 23:35 Constitutional: This is a well developed, well nourished patient who is awake, alert, ashley and in no acute distress. Eyes: Pupils equal round and reactive to light, extra-ocular motions intact. Lids and lashes normal. Conjunctiva and sclera are non-icteric and not injected. Cornea within normal limits. Periorbital areas with no swelling, redness, or edema. ENT: Nares patent. No nasal discharge, no septal abnormalities noted. Tympanic membranes are normal and external auditory canals are clear. Oropharynx with no redness, swelling, or masses, exudates, or evidence of obstruction, uvula midline. Mucous membranes moist. Neck: Trachea midline, no thyromegaly or masses palpated, and no cervical lymphadenopathy. Supple, full range of motion without nuchal rigidity, or vertebral point tenderness. No Meningismus. Chest/axilla: Normal chest wall appearance and motion. Nontender with no deformity. No lesions are appreciated. Cardiovascular: Regular rate and rhythm with a normal S1 and S2. No gallops, murmurs, or rubs. Normal PMI, no JVD. No pulse deficits. Respiratory: Lungs have equal breath sounds bilaterally, clear to auscultation and percussion. No rales, rhonchi or wheezes noted. No increased work of breathing, no retractions or nasal flaring. Abdomen/GI: Soft, non-tender, with normal bowel sounds. No distension or tympany. No guarding or rebound. No evidence of tenderness throughout. Back: No spinal tenderness. No costovertebral tenderness. Full range of motion. Male : Normal genitalia with no discharge or lesions. Skin: Warm, dry with normal turgor. Normal color with no rashes, no lesions, and no evidence of cellulitis. 23:35 Head/face: Noted is a laceration(s), that is deep, of the outer aspect of left eyebrow. Vital Signs: 23:20 BP 148 / 76; Pulse 82; Resp 20; Temp 98.0(O); Pulse Ox 100% on R/A; Weight 61.23 kg fc (R); Height 5 ft. 6 in. (167.64 cm) (R); Pain 10/10; 12/26 00:20 BP 138 / 77; Pulse 96; Resp 18; Pulse Ox 98% on R/A; tl2 02:12 BP 112 / 61; Pulse 66; Resp 18; Pulse Ox 100% on R/A; tl2 12/25 23:20 Body Mass Index 21.79 (61.23 kg, 167.64 cm) Cal Coma Score: 12/25 23:20 Eye Response: spontaneous(4). Verbal Response: oriented(5). Motor Response: obeys fc commands(6). Total: 15. 23:20 Eye Response: spontaneous(4). Verbal Response: oriented(5). Motor Response: obeys fc commands(6). Total: 15. 23:35 Eye Response: spontaneous(4). Verbal Response: oriented(5). Motor Response: obeys ashley commands(6). Total: 15. 12/26 00:20 Eye Response: spontaneous(4). Verbal Response: oriented(5). Motor Response: obeys tl2 commands(6). Total: 15. 02:12 Eye Response: spontaneous(4). Verbal Response: oriented(5). Motor Response: obeys ea commands(6). Total: 15. Trauma Score (Adult): 12/25 23:20 Eye Response: spontaneous(1); Verbal Response: oriented(1); Motor Response: obeys fc commands(2); Systolic BP: > 89 mm Hg(4); Respiratory Rate: 10 to 29 per min(4); Cal Score: 15; Trauma Score: 12 03 00:20 Eye Response: spontaneous(1); Verbal Response: oriented(1); Motor Response: obeys tl2 commands(2); Systolic BP: > 89 mm Hg(4); Respiratory Rate: 10 to 29 per min(4); Cal Score: 15; Trauma Score: 12 Laceration: 00:55 Wound Repair of 205cm ( 80.7in ) subcutaneous laceration to outer aspect of left ashley eyebrow. Irregularly shaped.. Skin/tissue flap noted.. Distal neuro/vascular/tendon intact. Anesthesia: Local anesthetic administered with 5 mls of 1% lidocaine. Wound prep: Moderate cleansing by me. Skin closed with 5 6-0 Prolene using interrupted sutures and sterile technique. Dressed with Neosporin, non-adherent dressing. Patient tolerated well. MDM: 12/25 23:23 Patient medically screened. [facility] 23:38 Data reviewed: vital signs, nurses notes, lab test result(s), radiologic studies, CT [facility] scan, plain films. 12/25 23:34 Order name: CBC with Diff [facility] 12/25 23:34 Order name: Comprehensive Metabolic Panel [facility] 12/25 23:34 Order name: CT Head C Spine [facility] 12/25 23:39 Order name: Chest Single View XRAY [facility] 12/26 00:54 Order name: Forearm Left XRAY [facility] 12/26 00:54 Order name: Wrist Left (3 View) XRAY [facility] 12/26 01:16 Order name: Elbow Left 3 View XRAY [facility] 12/25 23:54 Order name: Prolene, Sutures; Complete Time: 00:44 [facility] 12/25 23:54 Order name: Dressing - Wound; Complete Time: 00:45 [facility] 12/25 23:54 Order name: Gloves, Sterile; Complete Time: 00:45 [facility] 12/25 23:54 Order name: Setup Suture Tray; Complete Time: 00:45 [facility] 12/26 01:16 Order name: Ice pack; Complete Time: 02:14 [facility] 12/26 01:39 Order name: Splint - Elbow - Posterior; Complete Time: 02:53 [facility] 12/26 01:39 Order name: Sling; Complete Time: 02:53 [facility] Administered Medications: 23:40 Drug: morphine 2 mg Route: IVP; Site: left antecubital; ea 12/26 00:00 Follow up: Response: No adverse reaction; Pain is unchanged, physician notified tl2 12/25 23:45 Drug: NS 0.9% 500 ml Route: IV; Rate: bolus; Site: left antecubital; ea 12/26 00:30 Follow up: Response: No adverse reaction; IV Status: Completed infusion; IV Intake: ea 500ml 03/05 23:45 Drug: NS 0.9% 1000 ml Route: IV; Rate: 125 ml/hr; Site: left antecubital; ea 12/26 02:30 Follow up: Response: No adverse reaction; IV Status: Completed infusion 12/25 23:45 Drug: Zofran 4 mg Route: IVP; Site: left antecubital; ea 12/26 01:00 Follow up: Response: No adverse reaction; Marked relief of symptoms 12/25 23:50 Drug: morphine 2 mg Route: IVP; Site: left antecubital; ea 12/26 00:00 Follow up: Response: No adverse reaction; Pain is unchanged, physician notified tl2 00:27 Drug: Tetanus-Diphtheria Toxoid Adult 0.5 ml {Carton Wrapper: [employer]. Exp: ea 12/06/2020. Lot #: [id number]. } Route: IM; Site: right deltoid; 01:00 Follow up: Response: No adverse reaction tl2 00:38 Drug: morphine 2 mg Route: IVP; Site: left antecubital; tl2 01:30 Follow up: Response: No adverse reaction; Pain is decreased tl2 00:38 Drug: Zofran 4 mg Route: IVP; Site: left antecubital; tl2 01:00 Follow up: Response: No adverse reaction; Nausea is decreased tl2 00:44 Drug: Lidocaine (2 %) 5 ml {Note: medication adminsitered by provider.} Volume: 5 ml; ea Route: Infiltration; Disposition: 12/26/18 02:28 Discharged to Home. Impression: Superficial injury of head, Laceration without foreign body of other part of head - BROW, Concussion, Concussion with loss of consciousness of 30 minutes or less, Nondisplaced fracture of head of left radius. - Condition is Stable. - Discharge Instructions: Head Injury, Adult, Facial Laceration, Radial Head Fracture, Facial Laceration, [id number], Head Injury, Adult, [id number], Radial Head Fracture, [id number]. - Prescriptions for Keflex 500 mg Oral Capsule - take 1 capsule by ORAL route every 6 hours for 10 days; 40 capsule. Zofran 4 mg Oral Tablet - take 1 tablet by ORAL route every 12 hours As needed; 14 tablet. Tylenol- Codeine #3 300-30 mg Oral Tablet - take 2 tablets by ORAL route every 6 hours As needed; 20 tablet. - Medication Reconciliation Form, Thank You Letter, Antibiotic Education, Prescription Opioid Use form. - Follow up: Private Physician; When: 2 - 3 days; Reason: Recheck today's complaints, Continuance of care, Re-evaluation by your physician. Follow up: Kalin Canales; When: 2 - 3 days; Reason: Recheck today's complaints, Re-evaluation by your physician. - Problem is new. - Symptoms have improved. Signatures: Dispatcher [employer] EDSeth Macias MD MD cha Chretien, Felicia RN RN Cristina Ruiz RN RN Glo Caballero RN RN ea Corrections: (The following items were deleted from the chart) 03:00 02:28 12/26/2018 02:28 Discharged to Home. Impression: Superficial injury of head; ea Laceration without foreign body of other part of head - BROW; Concussion; Concussion with loss of consciousness of 30 minutes or less; Nondisplaced fracture of head of left radius. Condition is Stable. Discharge Instructions: Head Injury, Adult, Facial Laceration, Facial Laceration, [id number], Head Injury, Adult, [id number], Radial Head Fracture, Radial Head Fracture, [id number]. Prescriptions for Keflex 500 mg Oral Capsule - take 1 capsule by ORAL route every 6 hours for 10 days; 40 capsule, Zofran 4 mg Oral Tablet - take 1 tablet by ORAL route every 12 hours As needed; 14 tablet, Tylenol-Codeine #3 300-30 mg Oral Tablet - take 2 tablets by ORAL route every 6 hours As needed; 20 tablet. and Forms are Medication Reconciliation Form, Thank You Letter, Antibiotic Education, Prescription Opioid Use. Follow up: Private Physician; When: 2 - 3 days; Reason: Recheck today's complaints, Continuance of care, Re-evaluation by your physician. Follow up: Kalin Canales; When: 2 - 3 days; Reason: Recheck today's complaints, Re-evaluation by your physician. Problem is new. Symptoms have improved. ashley
--- NOTE | 2018-12-26 08:24 | RAD REPORT ---
EXAM DESCRIPTION: RAD - Chest Single View - 12/26/2018 12:16 am CLINICAL HISTORY: PAIN Chest pain. COMPARISON: No comparisons FINDINGS: Portable technique limits examination quality. The lungs are grossly clear. The heart is normal in size. No displaced fractures.Sternotomy wires not ed. IMPRESSION: No acute intrathoracic process suspected.
--- NOTE | 2018-12-26 08:27 | RAD REPORT ---
EXAM DESCRIPTION: RAD - Forearm Left - 12/26/2018 1:35 am CLINICAL HISTORY: PAIN Trauma, fall from ladder, left-sided arm pain COMPARISON: None FINDINGS: Left elbow, forearm and wrist - multiple projections are submitted Subtle lucency is seen in the radial head laterally which could be related to a nondisplaced fracture . Correlation with point tenderness in this location is recommended. Elsewhere, no evidence of acute fracture or subluxation seen.
--- NOTE | 2018-12-26 14:07 | RAD REPORT ---
EXAM DESCRIPTION: CT Head Without Intravenous Contrast CT Cervical Spine Without Intravenous Contrast CLINICAL HISTORY: The patient is 23 years old and is Male; PAIN TECHNIQUE: Axial computed tomography images of the head/brain and cervical spine without intravenous contrast. Sagittal and coronal reformatted images were created and reviewed. This CT exam was pe rformed using one or more of the following dose reduction techniques: automated exposure control, a djustment of the mA and/or kV according to patient size, and/or use of iterative reconstruction techn ique. COMPARISON: None. FINDINGS: BRAIN: Unremarkable. No hemorrhage. No significant white matter disease. No edema . VENTRICLES: Unremarkable. No ventriculomegaly. SKULL: No acute fracture. 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 MASTOID AIR CELLS: Unremarkable as visualized. No mastoid effusion. VERTEBRAE: No acute fracture or subluxation. Reversal of cervical lordosis centered at C5-6. 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 DISCS/SPINAL CANAL/NEURAL FORAMINA: No acute findings. No spinal canal stenosis. SOFT TISSUES: Unremarkable. THYROID: Thyroid is unremarkable. LUNG APICES: The peripheral lung zones are clear. IMPRESSION: 1. No acute intracranial abnormality. 2. No acute fracture or subluxation. 3. Chronic appearing pansinus disease. 4. Partial segmentation at C5-6 as detailed above. Electronically signed by: Barak Valdes DO 12/26/2018 12:30 AM ASSOCIATE [employer]NER Due to temporary technical issues with the PACS/Fluency reporting system, reports are being signed by the in house radiologist as a courtesy to ensure prompt reporting. The interpreting radiologist is f ully responsible for the content of the report.
--- NOTE | 2018-12-26 14:40 | RAD REPORT ---
EXAM DESCRIPTION: RAD - Wrist Left 3 View - 12/26/2018 1:35 am CLINICAL HISTORY: PAIN Trauma, fall from ladder, left-sided arm pain COMPARISON: None FINDINGS: Left elbow, forearm and wrist - multiple projections are submitted Subtle lucency is seen in the radial head laterally which could be related to a nondisplaced fracture . Correlation with point tenderness in this location is recommended. Elsewhere, no evidence of acute fracture or subluxation
--- NOTE | 2018-12-26 14:43 | RAD REPORT ---
EXAM DESCRIPTION: RAD - Elbow Left 3 View - 12/26/2018 1:37 am CLINICAL HISTORY: PAIN Trauma, fall from ladder, left-sided arm pain COMPARISON: None FINDINGS: Left elbow, forearm and wrist - multiple projections are submitted Subtle lucency is seen in the radial head laterally which could be related to a nondisplaced fracture . Correlation with point tenderness in this location is recommended. Elsewhere, no evidence of acute fracture or subluxation
== END 2018-12-26 03:00 | disposition home or self-care (01) ==
LOC: ER 23:08
PROC: 0JQ10ZZ Repair Face Subcutaneous Tissue and Fascia, Open Approach (ICD-10-PCS; principal; 2018-12-26)
PROC: 2W39X1Z Immobilization of Left Upper Extremity using Splint (ICD-10-PCS; 2018-12-26)
DX: S01.112A Laceration without foreign body of left eyelid and periocular area, initial encounter (principal); S06.0X1A Concussion with loss of consciousness of 30 minutes or less, initial encounter; S52.125A Nondisplaced fracture of head of left radius, initial encounter for closed fracture; W19.XXXA Unspecified fall, initial encounter; Y93.9 Activity, unspecified; Y92.009 Unspecified place in unspecified non-institutional (private) residence as the place of occurrence of the external cause; Z23 Encounter for immunization
CPT/HCPCS: 36415; 70450; 71045; 72125; 80053; 85025; 90714; 96361; 96374; 96375; 99284; J2270; J2405; J7030